=== PATIENT | female | born 1950 | race Caucasian/White ===

== ENCOUNTER → 2017-10-20 16:30 | Outpatient (CLI) | payer MEDICARE, BC, SELFPAY ==
[2017-10-20 16:55] LABS: Basophils % 0.6 % (0.1-2.0); Eosinophils # 0.2 K/mm3 (0.0-0.4); Eosinophils % 3.4 % (0.1-12.0); Hematocrit 41.7 % (37.0-47.0); Hemoglobin 13.2 g/dL (12.2-16.2); Lymphocytes # 1.5 K/mm3 (0.7-4.5); Lymphocytes % 23.2 K/mm3 (10-50); Mean Corpuscular HGB Conc 31.5 g/dL (31.8-35.4); Mean Corpuscular Hemoglobin 30.1 pg (27.0-31.2); Mean Corpuscular Volume 95.5 fl (81-99); Mean Platelet Volume 8.1 fl (7.4-10.4); Monocytes # 0.5 K/mm3 (0.1-1.0); Monocytes % 7.4 % (1.7-9.3); Neutrophils # 4.1 K/mm3 (1.8-7.8); Neutrophils % 65.4 % (37.0-80.0); Platelet Count 202 K/mm3 (142-424); Red Blood Count 4.37 M/mm3 (4.20-5.40); Red Cell Distribution Width 14.2 % (11.5-17.5); White Blood Count 6.3 K/mm3 (4.8-10.8)
[2017-10-20 19:49] LABS: Alanine Aminotransferase 52 U/L (12-78); Albumin Level 3.2 gm/dL (3.4-5.0); Albumin/Globulin Ratio 0.8 (1.1-1.8); Alkaline Phosphatase 82 U/L (46-116); Anion Gap 11.9 mEq/L (5-15); Aspartate Amino Transferase 51 U/L (15-37); Bilirubin,Total 0.3 mg/dL (0.2-1.0); Blood Urea Nitrogen 10 mg/dL (7-18); Calcium 9.2 mg/dL (8.5-10.1); Carbon Dioxide 28 mmol/L (21.0-32.0); Chloride 97 mmol/L (98-107); Chol/HDL Ratio 4.2 (1-3.5); Cholesterol 185 mg/dL (140-200); Creatinine,Serum 0.97 mg/dL (0.55-1.02); Estimated Glomerular Filt Rate 57 ml/min (>60); GFR (African American) 69 ML/MIN (>60); Globulin 3.8 gm/dl (1.3-3.2); Glucose 105 mg/dL (74-106); HDL Cholesterol 44 mg/dL (29-89); LDL Cholesterol 114 mg/dL (0-130); Potassium 3.9 mmoL/L (3.5-5.1); Sodium 133 mmol/L (136-145); Triglycerides 133 mg/dL (30-200); VLDL Cholesterol 27 mg/dL (0-40)
[2017-10-23 06:27] LABS: Vitamin D 25 Hydroxy 39.1 ng/mL (30.0-100.0)
== END ==
PROVIDERS: Visit Provider Nurse Practitioner Family
DX: M86.60 Other chronic osteomyelitis, unspecified site (principal); I10 Essential (primary) hypertension; R60.9 Edema, unspecified; E03.9 Hypothyroidism, unspecified; M85.89 Other specified disorders of bone density and structure, multiple sites; Z68.41 Body mass index [BMI] 40.0-44.9, adult
CPT/HCPCS: 36415; 80053; 80061; 82652; 84443; 85025

== ENCOUNTER → 2017-11-24 15:45 | Outpatient (CLI) | payer MEDICARE, BC, SELFPAY ==
[2017-11-24 17:36] LABS: Anion Gap 12.4 mEq/L (5-15); Blood Urea Nitrogen 14 mg/dL (7-18); Calcium 8.9 mg/dL (8.5-10.1); Carbon Dioxide 28 mmol/L (21.0-32.0); Chloride 91 mmol/L (98-107); Creatinine,Serum 1.14 mg/dL (0.55-1.02); Estimated Glomerular Filt Rate 47 ml/min (>60); GFR (African American) 57 ML/MIN (>60); Glucose 85 mg/dL (74-106); Potassium 4.4 mmoL/L (3.5-5.1); Sodium 127 mmol/L (136-145)
== END ==
PROVIDERS: Visit Provider Nurse Practitioner Family
DX: R60.9 Edema, unspecified (principal)
CPT/HCPCS: 36415; 80048

== ENCOUNTER → 2017-11-27 16:23 | Outpatient (CLI) | payer MEDICARE, BC, SELFPAY ==
--- NOTE | 2017-11-27 16:31 | MM_ITS ---
MM Dig screening mamm BI w/CAD CAD Screening COMPARISON: Digital mammograms with CAD 06/26/2016 and 05/08/2015 INDICATION: There is no personal or family history of breast cancer TECHNIQUE: Standard CC and MLO images were obtained. R2 CAD reviewed. FINDINGS: The patient is very difficult to position with exam performed in wheelchair, patient unable to lead into machine as necessary. The breasts are composed primarily of fat with a few scattered benign-appearing calcifications in each breast. There is a stable benign-appearing nodular density axillary tail right breast likely a low lying node. There is no suspicious lesion and there are no suspicious microcalcifications. IMPRESSION: Fibrofatty parenchyma with no suspicious lesion seen though as mentioned positioning was difficult particularly in regards to the cc views. BI-RADS Category: 2 Benign Finding(s) RECOMMENDED FOLLOW-UP: 1YR - 1 YEAR FOLLOW-UP (A letter has been sent to the patient regarding results of the study.)
== END ==
PROVIDERS: PCP Internal Medicine Adolescent Medicine; Visit Provider Nurse Practitioner Family
DX: Z12.31 Encounter for screening mammogram for malignant neoplasm of breast (principal)
CPT/HCPCS: 77067

== ENCOUNTER → 2018-04-01 15:36 | Outpatient (POV) | payer MEDICARE, BC, SELFPAY ==
[2018-04-01 17:36] LABS: Basophils % 0.5 % (0.1-2.0); Eosinophils # 0.1 K/mm3 (0.0-0.4); Eosinophils % 1.7 % (0.1-12.0); Hematocrit 42.3 % (37.0-47.0); Hemoglobin 13.9 g/dL (12.2-16.2); Lymphocytes # 1.4 K/mm3 (0.7-4.5); Mean Corpuscular HGB Conc 32.8 g/dL (31.8-35.4); Mean Corpuscular Hemoglobin 30.8 pg (27.0-31.2); Mean Corpuscular Volume 94.1 fl (81-99); Mean Platelet Volume 7.7 fl (7.4-10.4); Monocytes # 0.5 K/mm3 (0.1-1.0); Monocytes % 6.7 % (1.7-9.3); Neutrophils # 4.7 K/mm3 (1.8-7.8); Neutrophils % 70.1 % (37.0-80.0); Platelet Count 223 K/mm3 (142-424); Red Blood Count 4.49 M/mm3 (4.20-5.40); Red Cell Distribution Width 13.8 % (11.5-17.5); White Blood Count 6.7 K/mm3 (4.8-10.8)
[2018-04-01 23:51] LABS: Anion Gap 14.5 mEq/L (5-15); Blood Urea Nitrogen 15 mg/dL (7-18); Calcium 9.3 mg/dL (8.5-10.1); Carbon Dioxide 26 mmol/L (21.0-32.0); Chloride 91 mmol/L (98-107); Creatinine,Serum 1.27 mg/dL (0.55-1.02); Estimated Glomerular Filt Rate 42 ml/min (>60); GFR (African American) 50 ML/MIN (>60); Glucose 95 mg/dL (74-106); Potassium 4.5 mmoL/L (3.5-5.1); Sodium 127 mmol/L (136-145); Thyroid Stimulating Hormone 3.87 uIU/ml (0.358-3.740)
== END ==
PROVIDERS: PCP Nurse Practitioner Family
DX: E03.9 Hypothyroidism, unspecified (principal); R60.9 Edema, unspecified; I10 Essential (primary) hypertension
CPT/HCPCS: 36415; 80048; 84443; 85025

== ENCOUNTER → 2018-05-20 14:00 | Outpatient (CLI) | payer MEDICARE, BC, SELFPAY ==
[2018-05-20 20:01] LABS: Albumin Level 3.4 gm/dL (3.4-5.0); Anion Gap 15.8 mEq/L (5-15); Blood Urea Nitrogen 11 mg/dL (7-18); Calcium 9.3 mg/dL (8.5-10.1); Carbon Dioxide 26 mmol/L (21.0-32.0); Chloride 95 mmol/L (98-107); Creatinine,Serum 1.18 mg/dL (0.55-1.02); Estimated Glomerular Filt Rate 45 ml/min (>60); GFR (African American) 55 ML/MIN (>60); Glucose 101 mg/dL (74-106); Phosphorous 3.8 mg/dL (2.4-4.9); Potassium 4.8 mmoL/L (3.5-5.1); Sodium 132 mmol/L (136-145)
[2018-05-23 21:49] LABS: Vitamin D 25 Hydroxy 41.1 ng/mL (30.0-100.0)
[2018-05-25 15:31] LABS: Osteocalcin 7.5 ng/mL (.)
[2018-05-26 13:58] LABS: Tandem-R Ostase 15.3 ug/L (.)
[2018-05-28 11:12] LABS: N-Telopeptide Cross-linked 11.3 nmol BCE/L (6.2-19.0)
== END ==
PROVIDERS: Visit Provider Internal Medicine Nephrology
DX: M81.0 Age-related osteoporosis without current pathological fracture (principal)
CPT/HCPCS: 36415; 80069; 82523; 82652; 83937; 84080

== ENCOUNTER → 2018-05-21 12:43 | Outpatient (CLI) | payer MEDICARE, BC, SELFPAY ==
--- NOTE | 2018-05-21 12:55 | XR_ITS ---
XR DEXA axial skeleton HISTORY: ITS.REASON: OSTEOPAROSIS ORDERING PHYSICIAN: Raul Cosme PATIENT AGE: 68 years COMPARISON: 06/26/2016 FINDINGS: The BMD measured at the Right femoral neck is 0.684 g/cm squared with a T score of -2.5. This is considered Osteoporotic according to the World Health Organization criteria. Fracture risk is High. Treatment is advised. The mean hip density has decreased by 1.2%. IMPRESSION: Osteoporosis with high fracture risk. Treatment is advised. Suggest follow-up exam in one year
[2018-05-21 13:25] LABS: Creatinine,Urine Random 42 mg/dL (20-320)
== END ==
PROVIDERS: PCP Internal Medicine Adolescent Medicine; Visit Provider Internal Medicine Nephrology
DX: M81.0 Age-related osteoporosis without current pathological fracture (principal)
CPT/HCPCS: 77080; 82570

== ENCOUNTER → 2018-05-25 15:15 | Outpatient (POV) | payer MEDICARE, BC, SELFPAY | PROVIDERS: Visit Provider Internal Medicine Nephrology | DX: Z00.00 Encounter for general adult medical examination without abnormal findings (principal) ==

== ENCOUNTER 2018-06-16 13:20 | Outpatient (CLI) | payer MEDICARE, BC, SELFPAY ==
[2018-06-16 13:15] VITALS: BP 148/74; PULSE 68; RESP 20; TEMP 37.1; O2SAT 95
[2018-06-16 13:20] VITALS: BMI 45.1
[2018-06-16 13:35] VITALS: BP 152/74; PULSE 68; RESP 20; TEMP 36.9; O2SAT 95
== END 2018-06-16 13:35 | disposition home or self-care (01) ==
LOC: INF 13:55
PROVIDERS: Visit Provider Internal Medicine Nephrology
DX: M81.0 Age-related osteoporosis without current pathological fracture (principal)
CPT/HCPCS: 96374; J3489

== ENCOUNTER → 2018-07-02 17:06 | Outpatient (CLI) | payer MEDICARE, BC, SELFPAY ==
[2018-07-02 19:14] LABS: Basophils % 0.6 % (0.1-2.0); Eosinophils # 0.2 K/mm3 (0.0-0.4); Eosinophils % 2.7 % (0.1-12.0); Hematocrit 42.5 % (37.0-47.0); Hemoglobin 13.1 g/dL (12.2-16.2); Lymphocytes # 1.9 K/mm3 (0.7-4.5); Lymphocytes % 32.7 % (10-50); Mean Corpuscular HGB Conc 30.8 g/dL (31.8-35.4); Mean Corpuscular Hemoglobin 30.5 pg (27.0-31.2); Mean Corpuscular Volume 99.2 fl (81-99); Mean Platelet Volume 8.6 fl (7.4-10.4); Monocytes # 0.6 K/mm3 (0.1-1.0); Monocytes % 9.3 % (1.7-9.3); Neutrophils # 3.3 K/mm3 (1.8-7.8); Neutrophils % 54.7 % (37.0-80.0); Platelet Count 238 K/mm3 (142-424); Red Blood Count 4.28 M/mm3 (4.20-5.40); Red Cell Distribution Width 13.9 % (11.5-17.5)
[2018-07-02 19:59] LABS: Alanine Aminotransferase 36 U/L (12-78); Albumin Level 3.4 gm/dL (3.4-5.0); Albumin/Globulin Ratio 0.9 (1.1-1.8); Alkaline Phosphatase 105 U/L (46-116); Aspartate Amino Transferase 26 U/L (15-37); Bilirubin,Total 0.3 mg/dL (0.2-1.0); Blood Urea Nitrogen 10 mg/dL (7-18); Calcium 8.9 mg/dL (8.5-10.1); Carbon Dioxide 30 mmol/L (21.0-32.0); Chloride 97 mmol/L (98-107); Creatinine,Serum 0.95 mg/dL (0.55-1.02); Estimated Glomerular Filt Rate 58 ml/min (>60); GFR (African American) 70 ML/MIN (>60); Globulin 3.9 gm/dl (1.3-3.2); Sodium 134 mmol/L (136-145); Total Protein,Serum 7.3 gm/dL (6.4-8.2)
[2018-07-02 20:20] LABS: Glucose 72 mg/dL (74-106)
== END ==
PROVIDERS: Visit Provider Nurse Practitioner Family
DX: M86.60 Other chronic osteomyelitis, unspecified site (principal); E03.9 Hypothyroidism, unspecified; E87.1 Hypo-osmolality and hyponatremia
CPT/HCPCS: 36415; 80053; 84443; 85025

== ENCOUNTER 2018-10-19 21:13 | Observation (INO) | payer MEDICARE, BC, SELFPAY ==
[2018-10-19 21:13] VITALS: BP 138/49; PULSE 94; RESP 15; TEMP 37; O2SAT 98; BMI 40.3
--- NOTE | 2018-10-19 21:37 | CT_ITS ---
CT head/brain wo con HISTORY: Headache, pain, contusion/aspiration following injury ITS.REASON: fall ORDERING PHYSICIAN: Rigoberto Camejo MD PATIENT AGE: 68 years COMPARISON: None TECHNIQUE: Axial images obtained without contrast. Brain and bone windows reviewed. All CT scans at the facility use one or more dose reduction, viz: automated exposure control, ma/kV adjustment per patient size (including targeted exams where dose is matched to indication, i.e. head), or iterative reconstruction technique. FINDINGS: No midline shift, mass effect, intracranial hemorrhage, hydrocephalus, or extra-axial fluid collection is evident. There are involutional changes of age with atrophy and periventricular ischemic gliotic change The calvarium has an unremarkable appearance. No mastoid effusion. No sinus air-fluid levels.. IMPRESSION: No acute intracranial finding
--- NOTE | 2018-10-19 21:37 | XR_ITS ---
XR chest AP HISTORY: Posttraumatic pain ITS.REASON: fall ORDERING PHYSICIAN: Rigoberto Camejo MD PATIENT AGE: 68 years COMPARISON: 07/12/2016 FINDINGS: There is cardiomegaly with prominence of the mediastinum. Lungs are clear. There is no fracture of the left sixth and seventh ribs. No acute bony findings. IMPRESSION: Cardiomegaly. Old left-sided rib fracture. There is mild prominence of the mediastinum which may be related to the AP supine technique. Consider upright PA and lateral chest for further evaluation.
--- NOTE | 2018-10-19 21:37 | HMH.EDFALL ---
ED Disposition Clinical Impression: Weakness, Gait abnormality, Falls frequently Obesity Qualifiers: Obesity type: due to excess calories Obesity classification: adult class 3 (BMI >= 40) Serious obesity comorbidity presence: with serious comorbidity Body mass index: BMI 40.0-44.9 Qualified Code(s): E66.01 - Morbid (severe) obesity due to excess calories; Z68.41 - Body mass index (BMI) 40.0-44.9, adult Disposition: Admitted as Observation Condition on Discharge: Good Referrals: Elodia Quijano APRN [Primary Care Provider] - - Critical Care Critical Care Time: No Attestation: On 10/19/18, the high probability of a clinically significant, sudden or life threatening deterioration of the following system(s) required my full and direct attention, intervention and personal management. The time I documented below is in addition to time spent performing reported procedures but includes the following listed in this critical care notation. Medical Decision Making - Medical Records Medical records reviewed: Yes: I reviewed the patient's medical records. - [place] Inquiry Pt receiving controlled substance: No Vital Signs: 10/19/18 21:13 10/20/18 00:30 Temperature 98.6 F Temperature Source Oral Pulse Rate [Right Brachial] 94 H 84 Respiratory Rate 15 15 Blood Pressure [Right Arm] 138/49 L 132/74 Blood Pressure Mean [Right Arm] 78 93 02 Sat by Pulse Oximetry 98 96 Oxygen Delivery Method Room Air Room Air - Lab Data Lab results reviewed: Yes: I reviewed the patient's lab results. Lab Results 10/19/18 21:26: WBC 5.1, RBC 4.32, Hgb 13.3, Hct 38.8, MCV 89.9, MCH 30.8, MCHC 34.2, RDW 13.3, Plt Count 162, MPV 8.8, Neut % (Auto) 78.4, Lymph % (Auto) 14.1, [place] % (Auto) 6.9, Eos % (Auto) 0.2, Baso % (Auto) 0.4, Neut # (Auto) 4.0, Lymph # (Auto) 0.7, [place] # (Auto) 0.4, Eos # (Auto) 0.0, Baso # (Auto) 0.0 10/19/18 22:40: Sodium 131 L, Potassium 5.0, Chloride 96 L, Carbon Dioxide 24, Anion Gap 16.0 H, BUN 11, Creatinine 1.09 H, Estimated Creat Clear 97, Estimated GFR 50 L, Est GFR ( Amer) 60, Glucose 98, Calcium 8.4 L, Total Bilirubin 0.4, AST 111 H, ALT 73, Alkaline Phosphatase 87, Troponin I 0.04, Total Protein 6.3 L, Albumin 2.7 L, Globulin 3.6 H, Albumin/Globulin Ratio 0.8 L 10/20/18 00:00: Urine Color Yellow, Urine Appearance Clear, Urine pH 6.0, Ur Specific [place] 1.020, Urine Protein Trace, Urine Glucose (UA) Negative, Urine Ketones Negative, Urine Blood 1+, Urine Nitrate Negative, Urine Bilirubin Negative, Urine Urobilinogen 0.2, Ur Leukocyte Esterase Negative, Urine RBC 5-10, Urine WBC 3-5, Urine Bacteria 1+ Result diagrams: 10/19/18 21:26 10/19/18 22:40 Orders (Tests/Meds): ORDERS Category Date Time Status CT cervical spine wo con Stat Cat Scan 10/19/18 21:[address] head/brain wo con Stat Cat Scan 10/19/18 21:37 Taken Lumbar spine minimum 4 views [XR lumbar spine min 4V] Exams 10/19/18 22:10 Taken Stat XR chest AP Stat Exams 10/19/18 21:37 Taken XR pelvis 1-2V Stat Exams 10/19/18 21:37 Taken CPK [Creatine Kinase] Stat Lab 10/20/18 01:00 Ordered ECG Request by /Mynor Stat Y 10/19/18 21:37 Ordered - Radiology Data #1 Image(s): Chest, L-Spine, Pelvis Image Reviewed: Yes I reviewed the patient's radiology image Preliminary Findings: No Fracture Seen - CT Data CT Scan: Head, C-Spine Time Received: 01:[address] Reviewed: Yes: I have viewed the radiologist's interpretation Preliminary Findings: No Fracture Seen - ECG Data Tracing #1 Arrhythmias present: wandering atrial pacemaker Ischemic changes: non-specific ST-T wave changes ECG compared to prior tracings: there are no significant changes - Physician Consults Physician Consulted: vannessa Reason -: Admission Fall HPI - General Chief Complaint: Fall Stated Complaint: FALL Time Seen by Provider: 10/19/18 21:20 Mode of Arrival: EMS Source of Information: Patient, EMS, Medical Record Limitations: Physical Limi
--- NOTE | 2018-10-19 21:37 | CT_ITS ---
CT CERVICAL SPINE WITHOUT CONTRAST CT RECONSTRUCTIONS HISTORY:Neck pain following injury, fall with injury and pain ORDERING PHYSICIAN: Rigoberto Camejo MD PATIENT AGE: 68 years COMPARISON: 02/05/2013 Technique: All CT scans at the facility use one or more dose reduction, viz: automated exposure control, ma/kV adjustment per patient size (including targeted exams where dose is matched to indication, i.e. head), or iterative reconstruction technique PROCEDURE: Axial spiral CT scanning performed of the cervical spine beginning at the base of the skull and continuing to the upper T-spine. 3-D multiplanar reconstruction with 3-D manipulation of volumetric data set in image rendering was completed by the radiologist and/or technologist with the supervision of the radiologist on independent workstation. FINDINGS: There is normal alignment. These osteopenia. There is mild compression deformity involving the superior endplate of C7 and sclerosis of the right aspect of the C7 vertebral body not readily apparent on the previous exam. Degenerative disc disease is present at C5-C6 and C6-C7. No acute finding in the upper chest. No prevertebral soft swelling. IMPRESSION: 1. No acute fracture. 2. Small compression deformity of superior endplate of C7 with sclerosis and right aspect of C7 vertebral body which has developed since the previous exam and could be related to underlying neoplastic process. Bone scan may be of further value. 3. Cervical spondylosis
--- NOTE | 2018-10-19 21:37 | XR_ITS ---
XR pelvis 1-2V HISTORY: Fall with injury and pain ITS.REASON: fall ORDERING PHYSICIAN: Rigoberto Camejo MD PATIENT AGE: 68 years FINDINGS: No fracture or dislocation is evident. No significant degenerative change. No lytic or blastic change. Postsurgical changes lower lumbar spine and lumbosacral junction from prior fusion. Calcification is noted in the left pelvic region and may be due to fibroid calcification. IMPRESSION: No acute finding with no change from 01/05/2015
[2018-10-19 22:05] LABS: Basophils % 0.4 % (0.1-2.0); Eosinophils % 0.2 % (0.1-12.0); Hematocrit 38.8 % (37.0-47.0); Hemoglobin 13.3 g/dL (12.2-16.2); Lymphocytes # 0.7 K/mm3 (0.7-4.5); Lymphocytes % 14.1 % (10-50); Mean Corpuscular HGB Conc 34.2 g/dL (31.8-35.4); Mean Corpuscular Hemoglobin 30.8 pg (27.0-31.2); Mean Corpuscular Volume 89.9 fl (81-99); Mean Platelet Volume 8.8 fl (7.4-10.4); Monocytes # 0.4 K/mm3 (0.1-1.0); Monocytes % 6.9 % (1.7-9.3); Neutrophils % 78.4 % (37.0-80.0); Platelet Count 162 K/mm3 (142-424); Red Blood Count 4.32 M/mm3 (4.20-5.40); Red Cell Distribution Width 13.3 % (11.5-17.5); White Blood Count 5.1 K/mm3 (4.8-10.8)
--- NOTE | 2018-10-19 22:05 | PC.NURSE ---
PT IS IN CT AT THIS TIME
--- NOTE | 2018-10-19 22:10 | XR_ITS ---
EXAM: XR lumbar spine min 4V HISTORY: Pain following injury ITS.REASON: BACK PAIN ORDERING PHYSICIAN: Rigoberto Camejo MD PATIENT AGE: 68 years COMPARISON: 10/24/2015 FINDINGS: There are extensive postsurgical changes with interpedicular screws and connecting rods from L2 to S1 with normal alignment. There is been prior vertebral plasty at T12, L1, L2, and L4. Mild chronic wedging is present at T12, L1, L2, and L4. No acute fracture or dislocation is evident. IMPRESSION: Postsurgical changes and chronic changes, no acute finding
[2018-10-19 23:21] LABS: Alanine Aminotransferase 73 U/L (12-78); Albumin Level 2.7 gm/dL (3.4-5.0); Albumin/Globulin Ratio 0.8 (1.1-1.8); Alkaline Phosphatase 87 U/L (46-116); Aspartate Amino Transferase 111 U/L (15-37); Bilirubin,Total 0.4 mg/dL (0.2-1.0); Blood Urea Nitrogen 11 mg/dL (7-18); Calcium 8.4 mg/dL (8.5-10.1); Carbon Dioxide 24 mmol/L (21.0-32.0); Chloride 96 mmol/L (98-107); Creatinine Clearance Estimated 97 mL/min (50-200); Creatinine,Serum 1.09 mg/dL (0.55-1.02); Estimated Glomerular Filt Rate 50 ml/min (>60); GFR (African American) 60 ML/MIN (>60); Globulin 3.6 gm/dl (1.3-3.2); Glucose 98 mg/dL (74-106); Sodium 131 mmol/L (136-145); Total Protein,Serum 6.3 gm/dL (6.4-8.2); Troponin I 0.04 ng/ml (0.00-0.06)
[2018-10-20] VITALS (11 sets, daily range): BP systolic 111–153; BP diastolic 56–79; PULSE 69–90; RESP 15–20; TEMP 36.7–37.4; O2SAT 95–99; BMI 44.1
[2018-10-20 00:10] LABS: Microscopic, Urine URINE MICROSCOPIC (MICROSCOPIC)
[2018-10-20 00:14] LABS: Appearance,Urine CLEAR (Clear); Bilirubin,Urine Negative (Negative); Blood, Urine 1+ (Negative); Color,Urine YELLOW (Yellow); Glucose,Urine (UA) Negative (Negative); Ketones,Urine Negative (Negative); Leukocyte Esterase,Urine Negative (Negative); Nitrate,Urine Negative (Negative); Protein,Urine TRACE (Negative); Urobilinogen,Urine 0.2 EU/dl (0.2)
--- NOTE | 2018-10-20 00:30 | PC.NURSE ---
pt assisted up to a wheelchair at this time, required 1x assist. pt tolerated well, reports she will need her walker if she is going to ambulate. notified
[2018-10-20 00:33] LABS: Bacteria,Urine 1+ /lpf
--- NOTE | 2018-10-20 01:10 | PC.NURSE ---
Dr Gomes paged again
[2018-10-20 02:03] LABS: Creatine Kinase 922 U/L (26-192)
--- NOTE | 2018-10-20 02:05 | PC.NURSE ---
ARRIVED TO FLOOR, PER W/C, FROM ED
[2018-10-20 05:13] LABS: Basophils % 0.4 % (0.1-2.0); Eosinophils % 0.6 % (0.1-12.0); Hematocrit 39.9 % (37.0-47.0); Hemoglobin 13.7 g/dL (12.2-16.2); Lymphocytes # 0.8 K/mm3 (0.7-4.5); Lymphocytes % 15.4 % (10-50); Mean Corpuscular HGB Conc 34.2 g/dL (31.8-35.4); Mean Corpuscular Hemoglobin 30.8 pg (27.0-31.2); Mean Platelet Volume 7.8 fl (7.4-10.4); Monocytes # 0.3 K/mm3 (0.1-1.0); Neutrophils # 3.9 K/mm3 (1.8-7.8); Neutrophils % 77.7 % (37.0-80.0); Platelet Count 128 K/mm3 (142-424); Red Blood Count 4.44 M/mm3 (4.20-5.40); Red Cell Distribution Width 13.4 % (11.5-17.5); White Blood Count 5.1 K/mm3 (4.8-10.8)
[2018-10-20 05:27] LABS: Anion Gap 11.5 mEq/L (5-15); Blood Urea Nitrogen 12 mg/dL (7-18); Calcium 8.5 mg/dL (8.5-10.1); Carbon Dioxide 29 mmol/L (21.0-32.0); Chloride 94 mmol/L (98-107); Creatinine Clearance Estimated 48 mL/min (50-200); Creatinine,Serum 1.09 mg/dL (0.55-1.02); Estimated Glomerular Filt Rate 50 ml/min (>60); GFR (African American) 60 ML/MIN (>60); Glucose 84 mg/dL (74-106); Potassium 4.5 mmoL/L (3.5-5.1); Sodium 130 mmol/L (136-145); Troponin I 0.02 ng/ml (0.00-0.06)
--- NOTE | 2018-10-20 06:56 | PC.NURSE ---
PT NEW ADMIT AROUND 0200. DX WEAKNESS AND FALLS. PT REQUIRES 2-3 ASSIST WHEN GETTING UP. PT HAS PT/OT CONSULT ORDERED. IV SECURE AND PATENT, INFUSING NS@100/HR. RESPIRATIONS EVEN AND UNLABORED ON ROOM AIR. BREATH SOUNDS CLEAR. PT C/O PEDERSEN, TYLENOL GIVEN. PT SLEPT INTERVALS. A.M. LABS DRAWN. PT STABLE. WILL CONTINUE TO MONITOR. REPORT TO BE GIVEN TO ONCOMING NURSE.
--- NOTE | 2018-10-20 07:30 | PC.NURSE ---
REPORT GIVEN TO Thom SCHULTZ
--- NOTE | 2018-10-20 07:57 | HMH.HP ---
*Admission Date: 10/20/18 *Chief complaint: falls, weakness *History of present illness: Ms. Larios is a 68-year-old female well-known to our clinic who has a history of chronic back problems, multiple spinal surgeries. She presented overnight to the ER after falling at home and being unable to get up. She reports she fell at home and was on the floor throughout most of the day, called EMS to assist her. The first time they showed up she refused going to the hospital however the second time she needed them she finally agreed. She states her legs will just give out . Denies loss of consciousness, head trauma, chest pain, shortness of breath. Of note patient is morbidly obese on initial assessment. Has difficulty standing on her own. Is in bed and appears disheveled. States her just cannot take care of her as he has many of his own medical conditions per her report. Does complain of an additional rash on her right upper leg that hurts. Otherwise tolerated breakfast this morning. On room air [facility] History I have reviewed the patient's past medical history: Yes Medical History: Reports:: Congestive Heart Failure, Hypertension Denies:: Cancer, Diabetes Mellitus Type 1, Diabetes Mellitus Type 2, MRSA *Have you ever received a pneumonia vaccine?: Yes *Have you received a flu vaccine this season?: Yes Other Medical History: Reports: Arthritis, Liver DiseaseComment Only: Sinus Problems (SEASONAL ALLERGIES) Other Surgeries: Yes: Cholecystectomy, Colonoscopy, EGD, Other (BREAST BIOPSIES) - *Social History Educational Level: Attended College Smoking Status: Never smoker Alcohol Intake: never *Occupational Status:: disabled Housing: house *Travel in the last 8 weeks: None - Psychiatric History Expresses thoughts of harming self/others: None Suicide Plan Description: No Plan Family Hx:: Unable to obtain Review of Systems - Review of Systems Review of systems:: pertinent systems reviewed and negative unless documented below - *Neurologic Reports abnormal walking, Reports weakness, Denies confusion, Denies localized weakness, Denies seizure-like activity Meds Home Medications Medication Instructions Recorded Confirmed Type Amitriptyline HCl [Elavil 25mg 25 mg PO HS 10/19/18 10/20/18 History tablet] Bisoprolol Fumarate [Bisoprolol 10 mg PO DAILY 10/19/18 10/20/18 History 10mg Tablet] Calcium Carb, Citrate/Vit D3 1 each PO DAILY 10/19/18 10/20/18 History [Calcium + D3 ER Tablet] Cholecalciferol (Vitamin D3) 1,000 unit PO DAILY 10/19/18 10/20/18 History [Vitamin D3 1,000 Unit Cap] Escitalopram Oxalate 10 mg PO DAILY 10/19/18 10/20/18 History Fexofenadine/Pseudoephedrine 1 tab PO DAILY 10/19/18 10/20/18 History [Joyce-D 24 Hour Tablet] Furosemide [Lasix 20mg tab] 20 mg PO DAILY 10/19/18 10/20/18 History Levocetirizine Dihydrochloride 5 mg PO HS 10/19/18 10/20/18 History [Allergy Relief] Multivit-Min/Iron/Folic/Lutein 1 each PO DAILY 10/19/18 10/20/18 History [Centrum Silver Women Tablet] Raphine-3S/Dha/Epa/Fish Oil [Fish 1 each PO DAILY 10/19/18 10/20/18 History Oil 1,000 mg Softgel] Potassium 99 mg PO DAILY 10/19/18 10/20/18 History Pregabalin [Lyrica 150mg Cap] 150 mg PO BID 10/19/18 10/20/18 History Spironolactone 50 mg PO BID 10/19/18 10/20/18 History Sulfamethoxazole/Trimethoprim 1 tab PO BID 10/19/18 10/20/18 History [Sulfamethoxazole-Tmp Ds Tablet] Trazodone HCl 150 mg PO HS 10/19/18 10/20/18 History Ursodiol 1,000 mg PO BID 10/19/18 10/20/18 History azaTHIOprine [azaTHIOprine 50mg 50 mg PO DAILY 10/19/18 10/20/18 History Tablet] predniSONE [Deltasone 1mg tablet] 4 mg PO DAILY 10/19/18 10/20/18 History Hydrocodone/Acetaminophen 1 each PO QIDP PRN 10/20/18 10/20/18 History [Hydrocodon-Acetaminophn 10-325] Levothyroxine Sodium 112 mcg PO DAILY 10/20/18 10/20/18 History [Levothyroxine 112mcg (0.112mg) Tab] Omeprazole 20 mg PO DAILY 10/20/18 10/20/18 History Al
--- NOTE | 2018-10-20 08:27 | HMH.PHAINT ---
HOME MEDICATION RECONCILIATION COMPLETED USING PT MEDICATION BOTTLES FROM PHARMACY AND MEDICATION LIST FROM DR WELSH'S OFFICE.
--- NOTE | 2018-10-20 08:36 | HMH.PHAVTE ---
[facility] Pharmacy VTE Monitoring - Patient Demographics Admission date: 10/19/18 Report Date: 10/20/18 Time: 08:36 Allergies/Adverse Reactions: Patient Allergies erythromycin base [ERYTHROMYCIN BASE] Allergy (Unknown, Verified 10/20/18 08:20) Unknown allergy reaction nitrofurantoin [From MACROBID] Allergy (Unknown, Verified 10/20/18 08:20) Unknown allergy reaction gluten [From GLUTEN (FOOD/DRUG)] Adverse Reaction (Severe, Verified 06/16/18 13:53) DIARRHEA Height: 1.73 m Weight: 131.74 kg Patient Problems: Current Active Problems (Updated 10/20/18 @ 07:58 by Mohamud Medeiros MD) Weakness (Acute) Gait abnormality (Acute) Falls frequently (Acute) Obesity (Acute) Rhabdomyolysis (Acute) - VTE Risk Labs: VTE Related Lab Results Hgb 13.7 g/dL (12.2-16.2) 10/20/18 05:00 Hct 39.9 % (37.0-47.0) 10/20/18 05:00 Plt Count 128 K/mm3 (142-424) L 10/20/18 05:00 BUN 12 mg/dL (7-18) 10/20/18 05:00 Creatinine 1.09 mg/dL (0.55-1.02) H 10/20/18 05:00 Estimated Creat Clear 48 mL/min (50-200) 10/20/18 05:00 Was VTE Risk Assessment Performed: Yes VTE Risk Level: Low Risk - Prophylaxis VTE Prophylaxis Ordered?: Yes Types of VTE Prophylaxis: TEDS Knee High Location of Applied Device: Bilateral Lower Extremeties - VTE Diagnosis Confirmed Treatment or plan recommended: Continue Current Treatment
[2018-10-20 08:55] LABS: Troponin I < 0.02 ng/ml (0.00-0.06)
--- NOTE | 2018-10-20 10:27 | HMH.OTEV ---
OT Inpatient Evaluation Rehab OT IP Evaluation Start: 10/20/18 01:42 Freq: ONCE Status: Complete Protocol: Document 10/20/18 09:40 TFRY (Rec: 10/20/18 09:47 TFRY [id number]) Rehab OT IP Assessment Subjective History This is a 68 year old female admitted to the hospital after falling at home multiple times. Patient reports living at home with her . Patient reports that she walks with a walker at home and lives in a two story home and has to do steps. Objective Upper Extremity Gross ROM WFL Bed Mobility bed mobility - supine/sit Assist Level Maximum x 1 (75% assist) Transfer Training Sit/Stand/Pivot Transfer Assist Level Moderate x 2 (50% assist) Chair Transfer Ability Minimal x 2 (25% assist) Chair Transfer Technique Stand Step Pivot Feeding Ability Independent Lower Body Dressing Ability Unable/Dependant Performing Toilet Hygiene Ability Maximum Assistance Overall Commode/Toilet Transfer Ability Assistance x2 Commode/Toilet Transfer Technique Stand Step Pivot decrease in endurance No Rehab OT IP prob,goals,plan Problems Date of Evaluation: 10/20/18 OT IP Problems Bed Mobility,Transfers,Self care,Safety Rehab Potential Rehab Potential Fair Equipment Needs Assistive Devices Rolling / Wheeled Walker Plan OT intervention Plan Bed Mobility,Transfers,Self care,Safety OT Plan Frequency Daily Duration Goals Met Discharge Goals Bed Mobility Ability Assistance x1 Sit to Stand Chair Transfer Ability Contact Guard/Hand Hold Chair Transfer Technique Sit to/from Ambulatory Chair Transfer Assistive Devices Rolling Walker Lower Body Dressing Ability Assistance X1 Upper Body Dressing Ability Standby Assistance Bathing Ability Assistance x1 Performing Toilet Hygiene Ability Standby Assistance Overall Commode/Toilet Transfer Ability Standby Assistance Commode/Toilet Transfer Technique Stand Step Pivot Oral Care Ability Independent Discharge Plan OT Discharge Plan Recommend further therapy on discharge if returns home or prison placement for continued therapy for safety to increase independence Eval Complexity Eval Charge Codes 18251 - Low Complexity G Codes G -code Required
--- NOTE | 2018-10-20 10:47 | HMH.PTEV ---
Physical Therapy Evaluation Rehab PT IP Evaluation Start: 10/20/18 01:42 Freq: ONCE Status: Active Protocol: Document 10/20/18 10:42 [email or web address] (Rec: 10/20/18 10:47 [email or web address] [id number]) Subjective/History History History This is the initial IP PT evaluation for Brianda Larios. Pt is a 68 y/o female admitted to [facility] s/p fall at home, and severe weakness. Subjective Subjective Pt reports she fell at home 2x . Pt reports first time her legs just gave out EMS came and placed pt in bed. Pt hen attempted to get OOB and slid to floor. Again EMS was called and pt was brought to [facility]. Pt and spouse report they live in split level home w/ 4 stairs to enter and 7 stairs up and down. Pt uses walker at home but was I w/ ADL's and self care at home. Rehab PT IP Eval Objective Appearance Patient Behavior Appropriate,Cooperative, Fearful Patient Orientation Person,Place,Time Difficulty following instructions none Speech Pattern Clear Ambulation Patient Able to Ambulate Yes Ambulation Observation IP General Gait Pattern Observation Wide Based Gait,Shuffling Step Ambulation Distance (feet) 2 Ambulation Assistive Device Rolling Walker Balance Ability to Arise Able, uses arms to help Sitting Balance Steady, safe Standing Balance Unsteady Dynamic Sitting Balance Ability Fair Dynamic Standing Balance Ability Poor Transfers Bed Transfer Ability Contact Guard/Hand Hold Chair Transfer Ability Contact Guard/Hand Hold Sit to Stand Bed Transfer Ability Contact Guard/Hand Hold Sit to Stand Chair Transfer Ability Contact Guard/Hand Hold ROM All Extremities PT ROM Status WFL MMT All Extremities PT MMT WFL Rehab PT IP prob,goals,plan Problems Date of Evaluation: 10/20/18 PT IP Problems Bed Mobility,Transfers,Gait, Self care,Safety Rehab Potential Rehab Potential Poor Equipment Needs Assistive Devices Rolling / Wheeled Walker Plan PT Intervention Plan Bed Mobility,Transfers,Gait, Self care,Therapeutic Exercise PT Plan Frequency BID Duration LOS Di
[2018-10-20 11:12] LABS: Creatine Kinase 823 U/L (26-192)
--- NOTE | 2018-10-20 17:00 | SW/DCPLANNER ---
WENT BACK TO SEE PATIENT ABOUT HER DISCHARGE PLAN AFTER THERAPY DID NOT FEEL PATIENT WAS SAFE ENOUGH TO RETURN HOME AT THIS TIME...PATIENT STATED SHE IS AT HOME WITH HER BUT HE HAS HEALTH ISSUES ALSO.. I TOLD HER WE HAVE 3 FACILITIES HERE IN [place] THAT OFFER SKILLED CARE AND SHE COULD GO THERE BUT SHE COULD NOT USE HER MEDICARE A BECAUSE SHE WAS JUST IN AN OBSERVATION STATUS... PATIENT DID NOT SEEM TO UNDERSTAND, I ASKED HER IF SHE WOULD LIKE FOR ME TO CALL AND GET SOME PRIVATE PAY RATES FOR HER AND I DID [facility] IS $175 FOR PRIVATE AND $170 FOR SEMIPRIVATE, [facility] IS $175 AND [facility] FROM [facility] CAME AND SPOKE WITH HER BUT DOESN'T HAVE ANYTHING TO OFFER HER AT THIS TIME.. I EXPLAINED TO HER SHE MAY BE READY IN THE NEXT DAY OR SO AND SHE ACKNOWLEDGED WHAT I WAS TELLING HER...
--- NOTE | 2018-10-20 18:10 | PC.NURSE ---
PATIENT AOX4, LUNGS CLEAR, PULSES EQUAL, DISK RECOATER EQUAL, RN IN ROOM WITH DR. ESPINOSA THIS AM, RN REPORTED RASH ON PATIENT'S BACK THAT WENT DOWN INTO INNER THIGH. MD AND RN ASSESED RASH THAT APPEARED TO BE SCABED. MD STATED IT IS SHINGLES. MD EDUCATED PATIENT ABOUT SHINGLES AND TREATMENT, PATIENT VERBALIZED AN UNDERSTANDING. RN ASSISTED PATIENT FROM CHAIR TO BED, NOTICED NEW SPOTS BLISTERED. RN PHONED MD'S OFFICE SPOKE TO LAURA, NO PHONE CALL BACK, RN PHONED BACK, WAS TOLD NOTHING WAS GOING TO BE CHANGED. RN THEN VERBALLY SPOKE WITH DR. RON MD ORDERED ACYCLOVIR 800MG 5X A DAY PO. PATIENT WAS MOVED FROM 210 TO 211 FOR ISOLATION PURPOSES. PATIENT AMBULATED WITH 2X ASSISTANCE, UNSTEADY. RN EDUCATED PATIENT ABOUT CALLING FOR HELP, NOT TO GET UP WITHOUT SOMEONE IN ROOM. PATIENT VERBALIZED AN UNDERSTANDING. NO NEW CONCERNS OR NEEDS
[2018-10-20 23:56] LABS: Adenovirus F 40/41, stool Not Detected (NotDetected); Astrovirus Not Detected (NotDetected); Campylobacter Not Detected (NotDetected); Clostridium Difficile A/B, PCR Not Detected (NotDetected); Cryptosporidium Not Detected (NotDetected); Cyclospora Cayetanesis Not Detected (NotDetected); Entamoeba histolytica Not Detected (NotDetected); Enteroaggregative E coli Not Detected (NotDetected); Enteropathogenic E coli Not Detected (NotDetected); Enterotoxigenic E coli Not Detected (NotDetected); Giardia lamblia Not Detected (NotDetected); Norovirus Not Detected (NotDetected); Plesimonas Shigalloides, PCR Not Detected (NotDetected); Rotavirus A Not Detected (NotDetected); Salmonella, PCR Not Detected (NotDetected); Sapovirus Not Detected (NotDetected); Shiga-like toxin E coli Not Detected (NotDetected); Shigella Enterovasive E coli Not Detected (NotDetected); Vibrio Cholerae Not Detected (NotDetected); Vibrio, PCR Not Detected (NotDetected); Yersinia Entercolitica, PCR Not Detected (NotDetected)
[2018-10-21 04:00] VITALS: BP 145/62; PULSE 64; RESP 19; TEMP 36.7; O2SAT 95
--- NOTE | 2018-10-21 04:11 | PC.NURSE ---
Slept at intervals. Pt continues in airborne/contact precautions for shingles virus. Remained on room air w/ no s/s of resp distress. Requires assistance x2 when transferring to BSC d/t pt's weakness. Has periods of stress incontinence w/ both bowel and bladder. Refuses TEDS. #20 (L) hand w/ NS @ 100 mls/hr. VSS. Will continue to monitor.
[2018-10-21 05:16] VITALS: BMI 44.1
[2018-10-21 07:07] LABS: Basophils % 0.4 % (0.1-2.0); Eosinophils % 0.3 % (0.1-12.0); Hematocrit 41.1 % (37.0-47.0); Hemoglobin 13.5 g/dL (12.2-16.2); Lymphocytes # 0.8 K/mm3 (0.7-4.5); Lymphocytes % 18.1 % (10-50); Mean Corpuscular HGB Conc 32.8 g/dL (31.8-35.4); Mean Corpuscular Hemoglobin 30.9 pg (27.0-31.2); Mean Corpuscular Volume 94.2 fl (81-99); Mean Platelet Volume 9.2 fl (7.4-10.4); Monocytes # 0.4 K/mm3 (0.1-1.0); Monocytes % 7.5 % (1.7-9.3); Neutrophils # 3.4 K/mm3 (1.8-7.8); Neutrophils % 73.7 % (37.0-80.0); Platelet Count 127 K/mm3 (142-424); Red Blood Count 4.36 M/mm3 (4.20-5.40); White Blood Count 4.7 K/mm3 (4.8-10.8)
--- NOTE | 2018-10-21 07:14 | PC.NURSE ---
REPORT GIVEN TO Mati SAUNDERS
[2018-10-21 08:00] VITALS: BP 161/62; PULSE 65; RESP 22; TEMP 37.1; O2SAT 94
[2018-10-21 08:29] LABS: Alanine Aminotransferase 112 U/L (12-78); Albumin Level 2.6 gm/dL (3.4-5.0); Albumin/Globulin Ratio 0.8 (1.1-1.8); Alkaline Phosphatase 75 U/L (46-116); Anion Gap 15.2 mEq/L (5-15); Aspartate Amino Transferase 169 U/L (15-37); Bilirubin,Total 0.6 mg/dL (0.2-1.0); Blood Urea Nitrogen 8 mg/dL (7-18); Calcium 7.7 mg/dL (8.5-10.1); Carbon Dioxide 25 mmol/L (21.0-32.0); Chloride 95 mmol/L (98-107); Creatine Kinase 415 U/L (26-192); Creatinine Clearance Estimated 53 mL/min (50-200); Creatinine,Serum 0.79 mg/dL (0.55-1.02); Estimated Glomerular Filt Rate 72 ml/min (>60); GFR (African American) 87 ML/MIN (>60); Globulin 3.4 gm/dl (1.3-3.2); Glucose 79 mg/dL (74-106); Magnesium 1.6 mg/dL (1.4-2.2); Potassium 4.2 mmoL/L (3.5-5.1); Sodium 131 mmol/L (136-145)
--- NOTE | 2018-10-21 08:49 | HMH.DCSUM ---
General - General Admission date:: 10/20/18 Discharge date: 10/21/18 HPI HPI: Ms. Larios is a 68-year-old female well-known to our clinic who has a history of chronic back problems, multiple spinal surgeries. She presented overnight to the ER after falling at home and being unable to get up. She reports she fell at home and was on the floor throughout most of the day, called EMS to assist her. The first time they showed up she refused going to the hospital however the second time she needed them she finally agreed. She states her legs will just give out . Denies loss of consciousness, head trauma, chest pain, shortness of breath. Of note patient is morbidly obese on initial assessment. Has difficulty standing on her own. Is in bed and appears disheveled. States her just cannot take care of her as he has many of his own medical conditions per her report. Does complain of an additional rash on her right upper leg that hurts. Otherwise tolerated breakfast this morning. On room air Hospital Course Hospital Course: Patient was admitted, placed on IV fluids and physical therapy evaluated her. She was found to have rhabdomyolysis and hyponatremia. Unfortunately, even though she clearly deserved admission to an inpatient hospital with IV fluids, she did not meet Medicare criteria based on their bureaucratic regulations which in this case had very poor clinical correlation. Otherwise patient did well with fluids, patient went through physical therapy/Occupational Therapy and then failed evaluation and PIP physical therapy recommended several days of longterm care. Patient had a difficult time deciding about rehabilitation given the cost of this given that Medicare failed to cover this medically necessary service. Patient did decide to go to [facility]. Bed will be arranged at that point. Patient will need to have physical therapy/Occupational Therapy, push p.o. fluids. She will need to have BMP and CBC levels on Friday, October 23, as well as a CPK total level. She will also need urinalysis on Friday. Objective Vital signs: Temp Pulse Resp BP Pulse Ox 98.1 F 64 19 145/62 H 95 10/21/18 04:00 10/21/18 04:00 10/21/18 04:00 10/21/18 04:00 10/21/18 04:00 Narrative: Constitutional mild distress, morbidly obese - *Routine HEENT Exam Head: Present: normocephalic Eye: Present: EOMI, PERRL ENT: Present: mucous membranes moist - *Routine Neck Exam Present: supple. Absent: lymphadenopathy - *Routine Respiratory Exam Present: CTA bilaterally. Absent: wheezes - *Routine Cardiovascular Exam Present: RRR, murmur - *Routine Abdominal Exam Present: soft, normoactive bowel sounds. Absent: tenderness - *Routine Extremities Exam Absent: cyanosis, clubbing, edema Comments: Scabbed rash that begins on right lumbar region and follows dermatomal path to medial thigh wrapping around the right leg/inguinal region, consistent with scabies no weeping or bleeding, no vesicles present - *Routine Skin Exam Present: warm, rash (See extremity exam) - *Routine Neurological Exam Present: alert, oriented X3 Results Labs on day of discharge: Labs from last 24 hours 10/21/18 10/21/18 10/20/18 06:15 06:15 22:50 WBC 4.7 L RBC 4.36 Hgb 13.5 Hct 41.1 MCV 94.2 MCH 30.9 MCHC 32.8 RDW 14.0 Plt Count 127 L MPV 9.2 Neut % (Auto) 73.7 Lymph % (Auto) 18.1 Pierce % (Auto) 7.5 Eos % (Auto) 0.3 Baso % (Auto) 0.4 Neut # (Auto) 3.4 Lymph # (Auto) 0.8 Pierce # (Auto) 0.4 Eos # (Auto) 0.0 Baso # (Auto) 0.0 Sodium 131 L Potassium 4.2 Chloride 95 L Carbon Dioxide 25 Anion Gap 15.2 H BUN 8 D Creatinine 0.79 D Estimated Creat Clear 53 Estimated GFR 72 Est GFR ( Amer) 87 D Glucose 79 Calcium 7.7 L Magnesium 1.6 Total Bilirubin 0.6 AST 169 H D ALT 112 H D
--- NOTE | 2018-10-21 08:54 | P.DS_ITS ---
General - General Admission date:: 10/20/18 Discharge date: 10/21/18 HPI HPI: Ms. Larios is a 68-year-old female well-known to our clinic who has a history of chronic back problems, multiple spinal surgeries. She presented overnight to the ER after falling at home and being unable to get up. She reports she fell at home and was on the floor throughout most of the day, called EMS to assist her. The first time they showed up she refused going to the hospital however the second time she needed them she finally agreed. She states her legs will just give out . Denies loss of consciousness, head trauma, chest pain, shortness of breath. Of note patient is morbidly obese on initial assessment. Has difficulty standing on her own. Is in bed and appears disheveled. States her just cannot take care of her as he has many of his own medical conditions per her report. Does complain of an additional rash on her right upper leg that hurts. Otherwise tolerated breakfast this morning. On room air Hospital Course Hospital Course: Patient was admitted, placed on IV fluids and physical therapy evaluated her. She was found to have rhabdomyolysis and hyponatremia. Unfortunately, even though she clearly deserved admission to an inpatient hospital with IV fluids, she did not meet Medicare criteria based on their bureaucratic regulations which in this case had very poor clinical correlation. Otherwise patient did well with fluids, patient went through physical therapy/Occupational Therapy and then failed evaluation and PIP physical therapy recommended several days of jail care. Patient had a difficult time deciding about rehabilitation given the cost of this given that Medicare failed to cover this medically necessary service. Patient did decide to go to [facility]. Bed will be arranged at that point. Patient will need to have physical therapy/Occupational Therapy, push p.o. fluids. She will need to have BMP and CBC levels on Friday, October 23, as well as a CPK total level. She will also need urinalysis on Friday. Objective Vital signs: Temp Pulse Resp BP Pulse Ox 98.1 F 64 19 145/62 H 95 10/21/18 04:00 10/21/18 04:00 10/21/18 04:00 10/21/18 04:00 10/21/18 04:00 Narrative: Constitutional mild distress, morbidly obese - *Routine HEENT Exam Head: Present: normocephalic Eye: Present: EOMI, PERRL ENT: Present: mucous membranes moist - *Routine Neck Exam Present: supple. Absent: lymphadenopathy - *Routine Respiratory Exam Present: CTA bilaterally. Absent: wheezes - *Routine Cardiovascular Exam Present: RRR, murmur - *Routine Abdominal Exam Present: soft, normoactive bowel sounds. Absent: tenderness - *Routine Extremities Exam Absent: cyanosis, clubbing, edema Comments: Scabbed rash that begins on right lumbar region and follows dermatomal path to medial thigh wrapping around the right leg/inguinal region, consistent with scabies no weeping or bleeding, no vesicles present - *Routine Skin Exam Present: warm, rash (See extremity exam) - *Routine Neurological Exam Present: alert, oriented X3 Results Labs on day of discharge: Labs from last 24 hours 10/21/18 10/21/18 10/20/18 06:15 06:15 22:50 WBC 4.7 L RBC 4.36 Hgb 13.5 Hct 41.1 MCV 94.2 MCH 30.9
--- NOTE | 2018-10-21 10:24 | PC.NURSE ---
Notified by PETTY Short Rn in care management that patient could come out of isolation per Dr Gomes
--- NOTE | 2018-10-21 14:44 | PC.NURSE ---
Patient has tolerated well this shift, assist x 1 to bedside commode. Report called to Marline at [facility]. Packet with prescription was sent with EMS to facility. IV removed prior to discharge, catheter intact, tolerated well. Patient and spouse verbalized understand of education provided by JON Combs. Transported by EMS.
== END 2018-10-21 14:15 ==
LOC: ER 21:23 → 2ND 10-20 01:24
PROVIDERS: Internal Medicine Adolescent Medicine; Admitting Provider Internal Medicine Adolescent Medicine; Emergency Provider Emergency Medicine; PCP Nurse Practitioner Family; Visit Provider Internal Medicine Adolescent Medicine
DX: M62.82 Rhabdomyolysis (principal); R26.9 Unspecified abnormalities of gait and mobility; B02.9 Zoster without complications; E66.01 Morbid (severe) obesity due to excess calories; E87.1 Hypo-osmolality and hyponatremia; M26.9 Dentofacial anomaly, unspecified; Z79.52 Long term (current) use of systemic steroids; Z79.899 Other long term (current) drug therapy; Z88.1 Allergy status to other antibiotic agents; Z91.018 Allergy to other foods; Z68.41 Body mass index [BMI] 40.0-44.9, adult
CPT/HCPCS: 36415; 70450; 71045; 72110; 72125; 72170; 80048; 80053; 81001; 82550; 83735; 84484; 85025; 87507; 93005; 97110; 97161; 97165; 97530; 97535; 99284; G0378

== ENCOUNTER → 2019-01-26 09:17 | Outpatient (CLI) | payer MEDICARE, BC, SELFPAY ==
--- NOTE | 2019-01-26 09:26 | MM_ITS ---
PROCEDURE: MM DIG SCREENING MAMM BI W/CAD Patient Age:68Y CLINICAL INDICATION: SCREENING routine screening mammogram. No hormones but no new complaints. Noncontributory family history. Previous stereotactic biopsy left breast. Difficult to position-had to be held in position COMPARISON: DMSS DIGITAL MAMM SURGICAL SPECIMEN from 08/26/2012 DMDXUL DIG MAMM-DX UNILATERAL-LT from 08/26/2012 DMSB DIG MAMM-SCREEN CHILANGO from 04/25/2014 DMSB DIG MAMM-SCREEN CHILANGO from 05/08/2015 DMSB DIG MAMM-SCREEN CHILANGO W/CAD from 06/26/2016 [facility] MM Dig screening mamm BI w/CAD from 11/27/2017 TECHNIQUE: Standard CC and MLO images were obtained. R2 CAD reviewed. FINDINGS: Low-density breast with generalized fatty replacement. Minimal residual fibroglandular elements towards the anterior right and left breast but no new areas of significant concern. No dominant or suspicious mass. No suspicious calcifications. Scattered benign-appearing calcifications again noted bilaterally.. Previous stereotactic biopsy clip at left breast of again noted bilateral follow-up 1 year recommended IMPRESSION: Stable bilateral mammogram . Negative mammogram with no new areas of significant concern. Bilateral follow-up in 1 year recommended BI-RAD Category: 1 Negative FOLLOW-UP: 1YR 1 Year Follow-up (A letter has been sent to the patient regarding results of the study.) Dictated by: Wayne Martinez MD 01/27/2019 10:07 Electronically signed by Wayne Martinez MD in [place] 01/27/2019 10:07
== END ==
PROVIDERS: PCP Nurse Practitioner Family; Visit Provider Nurse Practitioner Family
DX: Z12.31 Encounter for screening mammogram for malignant neoplasm of breast (principal)
CPT/HCPCS: 77067

== ENCOUNTER → 2019-02-03 15:40 | Outpatient (POV) | payer MEDICARE, BC, SELFPAY | DX: Z00.00 Encounter for general adult medical examination without abnormal findings (principal) ==

== ENCOUNTER → 2019-02-08 13:52 | Outpatient (POV) | payer MEDICARE, BC, SELFPAY ==
[2019-02-08 15:22] LABS: Basophils % 0.4 % (0.1-2.0); Eosinophils # 0.2 K/mm3 (0.0-0.4); Hematocrit 43.9 % (37.0-47.0); Hemoglobin 14.1 g/dL (12.2-16.2); Lymphocytes # 2.9 K/mm3 (0.7-4.5); Lymphocytes % 34.3 % (10-50); Mean Corpuscular HGB Conc 32.1 g/dL (31.8-35.4); Mean Corpuscular Hemoglobin 30.1 pg (27.0-31.2); Mean Corpuscular Volume 93.8 fl (81-99); Monocytes # 0.8 K/mm3 (0.1-1.0); Neutrophils # 4.6 K/mm3 (1.8-7.8); Neutrophils % 54.2 % (37.0-80.0); Platelet Count 256 K/mm3 (142-424); Red Blood Count 4.68 M/mm3 (4.20-5.40); Red Cell Distribution Width 13.7 % (11.5-17.5); White Blood Count 8.5 K/mm3 (4.8-10.8)
[2019-02-08 15:23] LABS: Ammonia 18 umol/L (19-54)
[2019-02-08 15:24] LABS: INR 0.98 (0.9-1.1); Prothrombin Time 10.2 seconds (9.4-11.8)
[2019-02-08 16:16] LABS: Alanine Aminotransferase 23 U/L (12-78); Albumin Level 3.6 gm/dL (3.4-5.0); Albumin/Globulin Ratio 0.9 (1.1-1.8); Alkaline Phosphatase 103 U/L (46-116); Anion Gap 16.7 mEq/L (5-15); Aspartate Amino Transferase 24 U/L (15-37); Bilirubin,Total 0.3 mg/dL (0.2-1.0); Blood Urea Nitrogen 14 mg/dL (7-18); Calcium 9.5 mg/dL (8.5-10.1); Carbon Dioxide 24 mmol/L (21.0-32.0); Chloride 96 mmol/L (98-107); Creatinine,Serum 1.09 mg/dL (0.55-1.02); Estimated Glomerular Filt Rate 49 ml/min (>60); Ferritin 107 ng/mL (8-388); GFR (African American) 60 ML/MIN (>60); Globulin 4.2 gm/dl (1.3-3.2); Glucose 82 mg/dL (74-106); Potassium 4.7 mmoL/L (3.5-5.1); Sodium 132 mmol/L (136-145); Total Protein,Serum 7.8 gm/dL (6.4-8.2)
[2019-02-10 09:55] LABS: Iron 114 ug/dL (27-139); Iron Saturation 28 % (15-55); UIBC 293 ug/dL (118-369)
[2019-02-10 10:49] LABS: AFP, Tumor Marker 5.1 ng/mL (0.0-8.3)
== END ==
PROVIDERS: PCP Internal Medicine Adolescent Medicine; Visit Provider Nurse Practitioner Family
DX: K75.4 Autoimmune hepatitis (principal); K75.3 Granulomatous hepatitis, not elsewhere classified; K74.60 Unspecified cirrhosis of liver
CPT/HCPCS: 36415; 80053; 82105; 82140; 82728; 83540; 83550; 85025; 85610

== ENCOUNTER → 2019-02-15 07:53 | Outpatient (CLI) | payer MEDICARE, BC, SELFPAY ==
--- NOTE | 2019-02-15 07:56 | US_ITS ---
PROCEDURE: US ABDOMEN LIMITED CLINICAL INDICATION: AUTOIMMUNE HEPATITIS, CIRRHOSIS, GRANULOMATOUS HEPATITIS COMPARISON: RUQ US RUQ-(ABD LTD)1ORGAN/QUAD/FU from 08/14/2016 FINDINGS: Liver shows diffuse increased echogenicity without enlargement or focal abnormality. Prior cholecystectomy. Common bile duct is 8.7 millimeters in diameter without intrahepatic biliary dilatation. Visualized portions of the pancreas and IVC are normal although most of these structures are not well imaged. Right kidney is 9.3 centimeters in length with a lower pole anechoic lesion measuring 1.8 centimeters with smooth [place] and mild distal acoustic enhancement. IMPRESSION: Hepatic steatosis or fibrosis. Cholecystectomy. Benign right renal cyst. Dictated by: Sushant Garcia 02/15/2019 11:16 Electronically signed by Sushant Garcia in [place] 02/15/2019 11:16
== END ==
PROVIDERS: PCP Internal Medicine Adolescent Medicine; Visit Provider Nurse Practitioner Family
DX: K74.5 Biliary cirrhosis, unspecified (principal); K75.3 Granulomatous hepatitis, not elsewhere classified; K74.60 Unspecified cirrhosis of liver
CPT/HCPCS: 76705

== ENCOUNTER → 2019-07-05 10:09 | Outpatient (CLI) | payer MEDICARE, BC, SELFPAY ==
--- NOTE | 2019-07-05 10:11 | XR_ITS ---
PROCEDURE: XR DEXA AXIAL SKELETON CLINICAL HISTORY: OSTEOPAROSIS COMPARISON: No exams were available for comparison FINDINGS: Utilizing right hip bone mineral density at the femoral neck was measured to be 0.64 grams/squared centimeter. T-score -1.8 replaced patient the osteopenic category. Utilizing the left forearm total bone mineral density is 0.40 grams/squared centimeter. T-score -3.[address] the patient in the osteoporotic category. IMPRESSION: Osteoporosis of the left forearm and osteopenia of right hip Dictated by: Nathan Olmedo 07/05/2019 15:08 Electronically signed by Nathan Olmedo in [place] 07/05/2019 15:08
[2019-07-05 12:01] LABS: Basophils % 0.7 % (0.1-2.0); Eosinophils # 0.1 K/mm3 (0.0-0.4); Eosinophils % 1.3 % (0.1-12.0); Hematocrit 41.6 % (37.0-47.0); Hemoglobin 14.1 g/dL (12.2-16.2); Lymphocytes % 28.7 % (10-50); Mean Corpuscular Volume 91.2 fl (81-99); Mean Platelet Volume 8.6 fl (7.4-10.4); Monocytes # 0.5 K/mm3 (0.1-1.0); Monocytes % 7.5 % (1.7-9.3); Neutrophils # 4.2 K/mm3 (1.8-7.8); Neutrophils % 61.8 % (37.0-80.0); Platelet Count 215 K/mm3 (142-424); Red Blood Count 4.56 M/mm3 (4.20-5.40); Red Cell Distribution Width 13.1 % (11.5-17.5); White Blood Count 6.8 K/mm3 (4.8-10.8)
[2019-07-05 13:55] LABS: Albumin Level 3.5 g/dL (3.4-5.0); Anion Gap 15.2 mEq/L (5-15); Blood Urea Nitrogen 13 mg/dL (7-18); Calcium 9.2 mg/dL (8.5-10.1); Carbon Dioxide 26 mmol/L (21.0-32.0); Chloride 101 mmol/L (98-107); Estimated Glomerular Filt Rate 49 ml/min (>60); GFR (African American) 59 ML/MIN (>60); Glucose 89 mg/dL (74-106); Phosphorous 3.1 mg/dL (2.4-4.9); Potassium 5.2 mmoL/L (3.5-5.1); Sodium 137 mmol/L (137-145)
[2019-07-05 17:58] LABS: Microscopic, Urine URINE MICROSCOPIC (MICROSCOPIC)
[2019-07-05 18:06] LABS: Appearance,Urine CLEAR (Clear); Bilirubin,Urine Negative (Negative); Blood, Urine Negative (Negative); Color,Urine YELLOW (Yellow); Glucose,Urine (UA) Negative (Negative); Ketones,Urine Negative (Negative); Leukocyte Esterase,Urine TRACE (Negative); Nitrate,Urine Negative (Negative); Protein,Urine Negative (Negative); Specific Gravity, Urine 1.015 (1.005-1.030); Urobilinogen,Urine 0.2 EU/dl (0.2)
[2019-07-05 19:06] LABS: Creatinine,Urine Random 94 mg/dL (20-320); Total Protein,Urine Random 17.3 mg/dL (0.0-11.9)
[2019-07-05 19:09] LABS: Bacteria,Urine Trace /lpf; Squamous Epithelial Cell,Urine Occasional #/hpf (0-5)
[2019-07-09 07:51] LABS: Parathyroid Hormone Intact 30 pg/mL (15-65); Vitamin D 25 Hydroxy 34.9 ng/mL (30.0-100.0)
[2019-07-09 09:34] LABS: Osteocalcin 7.1 ng/mL (.)
[2019-07-09 10:33] LABS: N-Telopeptide Cross-linked 12.4 nmol BCE/L (6.2-19.0); Tandem-R Ostase 12.5 ug/L (.)
== END ==
PROVIDERS: PCP Internal Medicine Adolescent Medicine; Visit Provider Internal Medicine Nephrology
DX: M81.0 Age-related osteoporosis without current pathological fracture (principal); N18.3 Chronic kidney disease, stage 3 (moderate)
CPT/HCPCS: 36415; 77080; 80069; 81001; 82523; 82570; 82652; 83937; 83970; 84080; 84155; 85025

== ENCOUNTER → 2019-07-21 10:07 | Outpatient (POV) | payer MEDICARE, BC, SELFPAY | PROVIDERS: PCP Internal Medicine Nephrology; Visit Provider Internal Medicine Nephrology | DX: Z00.00 Encounter for general adult medical examination without abnormal findings (principal) ==

== ENCOUNTER → 2019-07-29 16:38 | Outpatient (CLI) | payer MEDICARE, BC, SELFPAY ==
[2019-07-29 18:36] LABS: Thyroid Stimulating Hormone 2.36 uIU/mL (0.465-4.68)
== END ==
PROVIDERS: Visit Provider Nurse Practitioner Family
DX: E03.9 Hypothyroidism, unspecified (principal)
CPT/HCPCS: 36415; 84443

== ENCOUNTER 2019-08-25 14:00 | Outpatient (CLI) | payer MEDICARE, BC, SELFPAY ==
[2019-08-25 14:06] VITALS: BMI 41.9
[2019-08-25 14:52] LABS: Albumin Level 4.1 g/dl (3.5-5.0)
[2019-08-25 14:55] LABS: Calcium 9.5 mg/dl (8.4-10.2); Creatinine Clearance Estimated 54 mL/min (50-200); Estimated Glomerular Filt Rate 62 ml/min (>60); GFR (African American) 75 ML/MIN (>60)
[2019-08-25 15:15] VITALS: BP 118/67; PULSE 58; RESP 20; TEMP 36.7; O2SAT 91
[2019-08-25 15:35] VITALS: BP 124/80; PULSE 55; RESP 20; O2SAT 93
== END 2019-08-25 15:35 | disposition home or self-care (01) ==
LOC: INF 14:03
PROVIDERS: Visit Provider Internal Medicine Nephrology
DX: M81.0 Age-related osteoporosis without current pathological fracture (principal)
CPT/HCPCS: 82040; 82310; 82565; 96374; J3489

== ENCOUNTER → 2019-12-02 16:01 | Outpatient (CLI) | payer MEDICARE, BC, SELFPAY ==
[2019-12-02 16:40] LABS: Basophils % 0.5 % (0.1-2.0); Eosinophils # 0.2 K/mm3 (0.0-0.4); Hematocrit 41.3 % (37.0-47.0); Hemoglobin 13.9 g/dL (12.2-16.2); Lymphocytes # 1.9 K/mm3 (0.7-4.5); Lymphocytes % 22.3 % (10-50); Mean Corpuscular HGB Conc 33.5 g/dL (31.8-35.4); Mean Corpuscular Hemoglobin 31.9 pg (27.0-31.2); Mean Corpuscular Volume 95.1 fl (81-99); Mean Platelet Volume 9.2 fl (7.4-10.4); Monocytes # 0.5 K/mm3 (0.1-1.0); Monocytes % 6.2 % (1.7-9.3); Neutrophils % 69.1 % (37.0-80.0); Platelet Count 211 K/mm3 (142-424); Red Blood Count 4.34 M/mm3 (4.20-5.40); Red Cell Distribution Width 13.5 % (11.5-17.5); White Blood Count 8.7 K/mm3 (4.8-10.8)
[2019-12-02 17:53] LABS: Alanine Aminotransferase 45 U/L (12-78); Albumin Level 4.1 g/dl (3.5-5.0); Albumin/Globulin Ratio 1.3 (1.1-1.8); Alkaline Phosphatase 97 U/L (38-126); Aspartate Amino Transferase 62 U/L (14-36); Bilirubin,Total 0.6 mg/dl (0.2-1.3); Blood Urea Nitrogen 11 mg/dl (7-17); Calcium 9.6 mg/dl (8.4-10.2); Carbon Dioxide 29 mmol/L (22.0-30.0); Chloride 95 mmol/L (98-107); Estimated Glomerular Filt Rate 62 ml/min (>60); GFR (African American) 75 ML/MIN (>60); Globulin 3.1 g/dL (1.3-3.2); Glucose 90 mg/dl (74-100); Sodium 133 mmol/L (136-145); Total Protein,Serum 7.2 g/dl (6.3-8.2)
[2019-12-02 18:11] LABS: 25-OH Vitamin D, Total 54.7 ng/mL (30-100)
[2019-12-02 18:25] LABS: Thyroid Stimulating Hormone 3.76 uIU/mL (0.465-4.68)
== END ==
PROVIDERS: Visit Provider Nurse Practitioner Family
DX: I10 Essential (primary) hypertension (principal); E03.9 Hypothyroidism, unspecified; M86.60 Other chronic osteomyelitis, unspecified site; M81.0 Age-related osteoporosis without current pathological fracture
CPT/HCPCS: 36415; 80053; 82306; 84443; 85025

== ENCOUNTER → 2020-03-02 16:49 | Outpatient (CLI) | payer MEDICARE, BC, SELFPAY ==
[2020-03-02 17:15] LABS: Basophils % 0.6 % (0.1-2.0); Eosinophils # 0.3 K/mm3 (0.0-0.4); Hematocrit 44.6 % (37.0-47.0); Hemoglobin 14.3 g/dL (12.2-16.2); Lymphocytes # 2.5 K/mm3 (0.7-4.5); Lymphocytes % 31.8 % (10-50); Mean Corpuscular HGB Conc 32.1 g/dL (31.8-35.4); Mean Corpuscular Hemoglobin 30.5 pg (27.0-31.2); Mean Corpuscular Volume 94.9 fl (81-99); Mean Platelet Volume 8.9 fl (7.4-10.4); Monocytes # 0.6 K/mm3 (0.1-1.0); Monocytes % 8.3 % (1.7-9.3); Neutrophils # 4.3 K/mm3 (1.8-7.8); Neutrophils % 55.3 % (37.0-80.0); Platelet Count 204 K/mm3 (142-424); Red Cell Distribution Width 13.6 % (11.5-17.5); White Blood Count 7.7 K/mm3 (4.8-10.8)
[2020-03-02 19:24] LABS: Alanine Aminotransferase 26 U/L (12-78); Albumin/Globulin Ratio 1.3 (1.1-1.8); Alkaline Phosphatase 89 U/L (38-126); Anion Gap 12.9 mEq/L (5-15); Aspartate Amino Transferase 41 U/L (14-36); Bilirubin,Total 0.3 mg/dl (0.2-1.3); Blood Urea Nitrogen 17 mg/dl (7-17); Calcium 9.4 mg/dl (8.4-10.2); Carbon Dioxide 28 mmol/L (22.0-30.0); Chloride 99 mmol/L (98-107); Estimated Glomerular Filt Rate 62 ml/min (>60); GFR (African American) 74 ML/MIN (>60); Globulin 3.2 g/dL (1.3-3.2); Glucose 102 mg/dl (74-100); Potassium 4.9 mmoL/L (3.5-5.1); Sodium 135 mmol/L (136-145); Total Protein,Serum 7.2 g/dl (6.3-8.2)
[2020-03-02 19:53] LABS: Thyroid Stimulating Hormone 6.64 uIU/mL (0.465-4.68)
== END ==
PROVIDERS: Visit Provider Nurse Practitioner Family
DX: E03.9 Hypothyroidism, unspecified (principal); I10 Essential (primary) hypertension; M86.60 Other chronic osteomyelitis, unspecified site
CPT/HCPCS: 36415; 80053; 84443; 85025

== ENCOUNTER → 2020-03-14 14:19 | Outpatient (CLI) | payer MEDICARE, BC, SELFPAY ==
--- NOTE | 2020-03-14 | XR_ITS ---
PROCEDURE: XR SHOULDER RT MIN 2V CLINICAL INDICATION: RT ANTERIOR SHOULDER PAIN COMPARISON: CR SHOU3L [id number] VIEWS from 11/26/2014 FINDINGS: No fracture or dislocation. No lytic or blastic change. There is normal mineralization. Mild osteoarthritic changes are present at the acromioclavicular joint and glenohumeral joint. There is some spurring along the undersurface of the acromion with subacromial stenosis. Other findings:None. IMPRESSION: Osteoarthritic changes with subacromial stenosis Dictated by: Giancarlo Burnett MD 03/14/2020 16:03 Giancarlo Burnett MD in [place] 03/14/2020 16:03
--- NOTE | 2020-03-14 | XR_ITS ---
PROCEDURE: XR KNEE RT 2V CLINICAL INDICATION: RT ANTERIOR KNEE PAIN COMPARISON: CR [id number] KNEE-4 OR 5 VIEWS-LT from 06/19/2016 CR [id number] KNEE-4 OR 5 VIEWS-RT from 06/19/2016 CR [id number] KNEE-3 VIEWS-RT from 02/03/2017 FINDINGS: No fracture or dislocation. No lytic or blastic change. There is normal mineralization. There are moderate to severe osteoarthritic changes of the right knee greater at the medial compartment and patellofemoral joint but also with involvement of the lateral compartment with osteophyte formation and decrease in the joint space. Other findings:None. IMPRESSION: Moderate to severe osteoarthritis slightly worse Dictated by: Giancarlo Burnett MD 03/14/2020 15:44 Giancarlo Burnett MD in [place] 03/14/2020 15:44
== END ==
PROVIDERS: PCP Nurse Practitioner Family; Visit Provider Nurse Practitioner Family
DX: M25.561 Pain in right knee (principal); M25.511 Pain in right shoulder
CPT/HCPCS: 73030; 73560

== ENCOUNTER → 2020-06-08 15:07 | Outpatient (CLI) | payer MEDICARE, BC, SELFPAY ==
[2020-06-08 17:12] LABS: Anion Gap 11.1 mEq/L (5-15); Blood Urea Nitrogen 13 mg/dl (7-17); Calcium 9.7 mg/dl (8.4-10.2); Carbon Dioxide 29 mmol/L (22.0-30.0); Chloride 101 mmol/L (98-107); Estimated Glomerular Filt Rate 62 ml/min (>60); GFR (African American) 74 ML/MIN (>60); Glucose 88 mg/dl (74-100); Potassium 4.1 mmoL/L (3.5-5.1); Sodium 137 mmol/L (136-145)
[2020-06-08 17:43] LABS: Thyroid Stimulating Hormone 4.12 uIU/mL (0.465-4.68)
== END ==
PROVIDERS: Visit Provider Nurse Practitioner Family
DX: E03.9 Hypothyroidism, unspecified (principal); I10 Essential (primary) hypertension
CPT/HCPCS: 36415; 80048; 84443

== ENCOUNTER → 2020-09-19 10:09 | Outpatient (CLI) | payer MEDICARE, BC, SELFPAY ==
--- NOTE | 2020-09-19 10:13 | XR_ITS ---
PROCEDURE: XR DEXA AXIAL SKELETON CLINICAL HISTORY: OSTEOPOROSIS COMPARISON: CR DEXAAX XR DEXA axial skeleton from 05/21/2018 FINDINGS: The right hip BMD is 0.57 with a T-score of -2.4. The left hip BMD is 0.60 with a T-score of -2.2. The 1/3 forearm is 0.534 BMD with a T-score -2.7 Previously the lowest density within the right femoral neck with T-score -2.5 IMPRESSION: This patient is considered osteoporotic according to the World Health Organization criteria. Fracture risk is high. Treatment is advised. Based on these results a follow-up exam is recommended in 1 year. Dictated by: Giancarlo Burnett MD 09/20/2020 04:57 Giancarlo Burnett MD in [place] 09/20/2020 04:57
[2020-09-19 12:11] LABS: Basophils % 0.4 % (0.1-2.0); Eosinophils # 0.1 K/mm3 (0.0-0.4); Eosinophils % 1.7 % (0.1-12.0); Hematocrit 40.6 % (37.0-47.0); Hemoglobin 13.3 g/dL (12.2-16.2); Lymphocytes # 2.2 K/mm3 (0.7-4.5); Lymphocytes % 33.1 % (10-50); Mean Corpuscular HGB Conc 32.7 g/dL (31.8-35.4); Mean Corpuscular Hemoglobin 30.4 pg (27.0-31.2); Mean Corpuscular Volume 93.1 fl (81-99); Monocytes # 0.5 K/mm3 (0.1-1.0); Neutrophils # 3.9 K/mm3 (1.8-7.8); Neutrophils % 57.8 % (37.0-80.0); Platelet Count 189 K/mm3 (142-424); Red Blood Count 4.36 M/mm3 (4.20-5.40); Red Cell Distribution Width 13.4 % (11.5-17.5); White Blood Count 6.7 K/mm3 (4.8-10.8)
[2020-09-19 12:27] LABS: Chloride 99 mmol/L (98-107); Sodium 132 mmol/L (136-145)
[2020-09-19 12:28] LABS: Potassium 4.9 mmoL/L (3.5-5.1)
[2020-09-19 12:30] LABS: Blood Urea Nitrogen 14 mg/dl (7-17); Estimated Glomerular Filt Rate 62 ml/min (>60); GFR (African American) 74 ML/MIN (>60)
[2020-09-19 12:31] LABS: Anion Gap 11.9 mEq/L (5-15); Calcium 9.3 mg/dl (8.4-10.2); Carbon Dioxide 26 mmol/L (22.0-30.0); Glucose 93 mg/dl (74-100); Phosphorous 3.6 mg/dl (2.5-4.5)
[2020-09-21 16:40] LABS: N-Telopeptide Cross-linked 10.6 nmol BCE/L (6.2-19.0)
[2020-09-22 00:51] LABS: Osteocalcin 4.9 ng/mL (.)
[2020-09-22 10:50] LABS: Tandem-R Ostase 19.3 ug/L (.)
== END ==
PROVIDERS: PCP Internal Medicine Adolescent Medicine; Visit Provider Internal Medicine Nephrology
DX: M81.0 Age-related osteoporosis without current pathological fracture (principal); N18.30 Chronic kidney disease, stage 3 unspecified
CPT/HCPCS: 36415; 77080; 80069; 82306; 82523; 83937; 84080; 85025

== ENCOUNTER → 2020-10-02 09:32 | Outpatient (POV) | payer MEDICARE, BC, SELFPAY | PROVIDERS: Visit Provider Internal Medicine Nephrology | DX: Z00.00 Encounter for general adult medical examination without abnormal findings (principal) ==

== ENCOUNTER → 2020-10-31 15:07 | Outpatient (CLI) | payer MEDICARE, BC, SELFPAY ==
--- NOTE | 2020-10-31 15:17 | CA_ITS ---
APPROVED REPORT Right Lower Extremity Venous Study for DVT. Hog Worker: LAUREL/ZEB Indications Lower Extremity Pain: Right Lower Extremity Edema: Right Risk Factors Obesity Technically difficult exam due to large body habitus. Vein Imaging CFV (R): compressive, spontaneous, phasic, augmentation SFJ (R): compressive, spontaneous, phasic, augmentation FEM (R): compressive, spontaneous, phasic, augmentation POP (R): compressive, spontaneous, phasic, augmentation DFV (R): compressive, spontaneous, phasic, augmentation PTV (R): compressive, spontaneous, phasic, augmentation GSV (R): compressive, spontaneous, phasic, augmentation SSV (R): compressive, spontaneous, phasic, augmentation Peroneals (R):compressive, spontaneous, phasic, augmentation GAS (R): compressive, spontaneous, phasic, augmentation Findings Color flow duplex demonstrates no evidence of DVT of the following right lower extremity Veins:Common Femoral Vein, Femoral Vein, Popliteal Vein, Posterior Tibial Veins, Peroneal Veins, Deep Femoral Vein. Negative for DVT. Conclusion Negative for DVT. Electronically signed by : Mohamud Abraham MD 11/02/2020 11:43:32
[2020-10-31 17:17] LABS: Basophils % 0.5 % (0.1-2.0); Eosinophils # 0.1 K/mm3 (0.0-0.4); Eosinophils % 1.5 % (0.1-12.0); Hematocrit 42.6 % (37.0-47.0); Hemoglobin 14.4 g/dL (12.2-16.2); Lymphocytes # 2.1 K/mm3 (0.7-4.5); Lymphocytes % 27.4 % (10-50); Mean Corpuscular HGB Conc 33.8 g/dL (31.8-35.4); Mean Corpuscular Hemoglobin 31.3 pg (27.0-31.2); Mean Corpuscular Volume 92.5 fl (81-99); Mean Platelet Volume 9.1 fl (7.4-10.4); Monocytes # 0.8 K/mm3 (0.1-1.0); Neutrophils # 4.7 K/mm3 (1.8-7.8); Neutrophils % 60.5 % (37.0-80.0); Platelet Count 191 K/mm3 (142-424); Red Blood Count 4.61 M/mm3 (4.20-5.40); Red Cell Distribution Width 13.3 % (11.5-17.5); White Blood Count 7.8 K/mm3 (4.8-10.8)
[2020-10-31 19:39] LABS: Chloride 99 mmol/L (98-107); Sodium 136 mmol/L (136-145)
[2020-10-31 19:40] LABS: Potassium 4.4 mmoL/L (3.5-5.1)
[2020-10-31 19:42] LABS: Alanine Aminotransferase 37 U/L (12-78); Albumin Level 4.2 g/dl (3.5-5.0); Albumin/Globulin Ratio 1.3 (1.1-1.8); Alkaline Phosphatase 89 U/L (38-126); Anion Gap 16.4 mEq/L (5-15); Aspartate Amino Transferase 50 U/L (14-36); Bilirubin,Total 0.6 mg/dl (0.2-1.3); Blood Urea Nitrogen 11 mg/dl (7-17); Calcium 9.6 mg/dl (8.4-10.2); Carbon Dioxide 25 mmol/L (22.0-30.0); Estimated Glomerular Filt Rate 62 ml/min (>60); GFR (African American) 74 ML/MIN (>60); Globulin 3.2 g/dL (1.3-3.2); Glucose 72 mg/dl (74-100); Total Protein,Serum 7.4 g/dl (6.3-8.2)
[2020-10-31 19:43] LABS: Magnesium 1.8 mg/dl (1.6-2.3)
[2020-10-31 20:13] LABS: Thyroid Stimulating Hormone 1.37 uIU/mL (0.465-4.68)
== END ==
PROVIDERS: PCP Internal Medicine Adolescent Medicine; Visit Provider Internal Medicine Adolescent Medicine
DX: M79.89 Other specified soft tissue disorders (principal); R60.1 Generalized edema
CPT/HCPCS: 36415; 80053; 83735; 84443; 85025; 93971

== ENCOUNTER → 2021-04-05 19:45 | Outpatient (CLI) | payer MEDICARE, BC, SELFPAY ==
[2021-04-06 13:19] LABS: Microscopic, Urine URINE MICROSCOPIC (MICROSCOPIC)
[2021-04-06 13:46] LABS: Appearance,Urine CLEAR (Clear); Bilirubin,Urine Negative (Negative); Blood, Urine 3+ (Negative); Color,Urine YELLOW (Yellow); Glucose,Urine (UA) Negative (Negative); Ketones,Urine Negative (Negative); Leukocyte Esterase,Urine 3+ (Negative); Nitrate,Urine POSITIVE (Negative); Protein,Urine 2+ (Negative); Urobilinogen,Urine 0.2 EU/dl (0.2)
[2021-04-06 14:02] LABS: Amorphous Sediment,Urine 1+ /lpf; Bacteria,Urine 2+ /lpf
== END ==
LOC: LAB 04-06 13:12 → LAB.DROPOF 04-06 13:19
PROVIDERS: Visit Provider Nurse Practitioner Family
DX: R30.0 Dysuria (principal); B96.1 Klebsiella pneumoniae [K. pneumoniae] as the cause of diseases classified elsewhere
CPT/HCPCS: 81001; 87086; 87186

== ENCOUNTER 2021-05-29 15:00 | Outpatient (RCR) | payer MEDICARE, BC, SELFPAY ==
--- NOTE | 2021-04-17 16:19 | HMH.RHREAS ---
Rehab Reassessment Rehab OP Re-assessment Start: 04/17/21 16:15 Freq: Status: Active Protocol: Document 04/17/21 16:15 SESAR (Rec: 04/17/21 16:19 [email or web address] [id number]) Electronically Signed By Eldon Reynolds, PT 04/17/21 16:15 Rehab Re-assessment Subjective Subjective Pt reports, My leg just keeps getting these blisters, I don 't understand it. Pt has not been present for treatment for ~ 3 wks. Objective Objective Notes R anterior Lower leg wounds: L =19.0 cm, W= 12.0 cm. Assessment Progress Assessment Slower Than Expected Assessment Notes Pt had been improving steadily , but was apparent;ly unable to come to therapy for several weeks and R LE has returned to its previous state. She continues to be minimally compliant with home treatment and keeps the R LE in dependent position even when in bed. Patient goals met none Goals Not Met ST,2,3 LT,2,3,4 Revised Goals none Plan Plan Continue per initial POC. Frequency of Therapy 2 x/wk Duration of therapy 8 wks Time and Billing Re-Eval Time 15 Re-Eval Billing Units 0 PHYSICIAN CERTIFICATION: I certify the specified therapy services for Brianda Larios are required, authorized, and reviewed every 30 days.
--- NOTE | 2021-05-16 14:34 | HMH.RHREAS ---
Rehab Reassessment Rehab OP Re-assessment Start: 04/17/21 16:15 Freq: Status: Active Protocol: Document 05/16/21 14:31 SESAR (Rec: 05/16/21 14:34 SESAR [id number]) Electronically Signed By Eldon Reynolds, PT 05/16/21 14:31 Rehab Re-assessment Subjective Subjective Pt reports much less problems with her R LE now due to changing her sleeping arrangements to keep her R LE from falling out of the bed all the time. Objective Objective Notes R anterior Lower leg wounds: L =2.0 cm, W= 1.0 cm. Assessment Progress Assessment Progressing as Expected Assessment Notes Much less edema overal, but some pitting remains. Tolerating compression well. Wounds healing very well with considerably smaller size and healthy wound bed. Patient goals met ST,2,3 Goals Not Met LT,2,3,4 Revised Goals none Plan Plan Continue per initial POC. Frequency of Therapy 2 x/wk Duration of therapy 8 wks Time and Billing Re-Eval Time 15 Re-Eval Billing Units 0 PHYSICIAN CERTIFICATION: I certify the specified therapy services for Brianda Larios are required, authorized, and reviewed every 30 days.
== END 2021-05-29 15:05 | disposition home or self-care (01) ==
LOC: PT 15:00
PROVIDERS: PCP Internal Medicine Adolescent Medicine; Visit Provider Nurse Practitioner Family
DX: R60.0 Localized edema (principal); S81.801D Unspecified open wound, right lower leg, subsequent encounter; L03.115 Cellulitis of right lower limb
CPT/HCPCS: 29580; 97140; 97162; 97164; 97597; 97760

== ENCOUNTER 2021-11-12 15:03 | Observation (INO) | payer MEDICARE, BC, SELFPAY ==
--- NOTE | 2021-11-12 15:18 | HMH.PHAINT ---
MEDICATION RECONCILIATION COMPLETED ON PATIENT USING EXTERNAL FILL HISTORY FROM PHARMACY AND [facility] REPORT. -TRISTEN KHOURYD
--- NOTE | 2021-11-12 15:24 | XR_ITS ---
FINAL REPORT CLINICAL HISTORY: pain, fall FINDINGS: 2 views of the right ankle were obtained. There is no acute fracture or dislocation. There are mild degenerative changes. There is a small plantar calcaneal spur. There is no soft tissue abnormality. IMPRESSION: No acute process. Reviewed, Interpreted and Dictated by Luis Sosa III, MD Transcribed by Tyshawn Joel Authenticated and [facility]
--- NOTE | 2021-11-12 15:24 | XR_ITS ---
FINAL REPORT CLINICAL HISTORY: pain, fall COMPARISON: March 14, 2020 FINDINGS: Two views of the right knee were obtained. There is no evidence of fracture or dislocation. There are moderate to severe degenerative changes with medial compartment narrowing. There is chronic irregularity of the medial femoral condyle. There is mild lateral subluxation of the tibia relative to the distal femur. There is no evidence of joint effusion. No localized soft tissue abnormality is identified. IMPRESSION: No acute bony abnormality. Moderate to severe degenerative change. Reviewed, Interpreted and Dictated by Luis Sosa III, MD Transcribed by Tyshawn Joel Authenticated and [facility]
[2021-11-12 16:46] VITALS: BMI 43.2
[2021-11-12 17:17] VITALS: BP 126/60; PULSE 60; RESP 16; TEMP 36.6; O2SAT 98
[2021-11-12 17:24] LABS: Coronavirus 19, PCR Not Detected (NotDetected); Influenza A, PCR Not Detected (NotDetected); Influenza B, PCR Not Detected (NotDetected)
[2021-11-12 18:01] LABS: Chloride 97 mmol/L (98-107); Potassium 4.1 mmoL/L (3.5-5.1); Sodium 130 mmol/L (136-145)
[2021-11-12 18:04] LABS: Anion Gap 11.1 mEq/L (5-15); Blood Urea Nitrogen 11 mg/dl (7-17); Calcium 9.4 mg/dl (8.4-10.2); Carbon Dioxide 26 mmol/L (22.0-30.0); Creatinine Clearance Estimated 51 mL/min (50-200); Estimated Glomerular Filt Rate 61 ml/min (>60); GFR (African American) 74 ML/MIN (>60); Glucose 97 mg/dl (74-100)
[2021-11-12 18:05] LABS: Lactic Acid 1.8 mmol/L (0.7-2.1); Magnesium 1.7 mg/dl (1.6-2.3)
[2021-11-12 18:18] LABS: Basophils # 0.1 K/mm3 (0-0.2); Basophils % 1.1 % (0.1-2.0); Eosinophils # 0.3 K/mm3 (0.0-0.4); Eosinophils % 3.5 % (0.1-12.0); Hematocrit 46.1 % (37.0-47.0); Hemoglobin 13.8 g/dL (12.2-16.2); Mean Corpuscular HGB Conc 29.9 g/dL (31.8-35.4); Mean Corpuscular Hemoglobin 29.5 pg (27.0-31.2); Mean Corpuscular Volume 98.8 fl (81-99); Mean Platelet Volume 9.2 fl (7.4-10.4); Monocytes # 0.6 K/mm3 (0.1-1.0); Monocytes % 7.6 % (1.7-9.3); Neutrophils # 5.2 K/mm3 (1.8-7.8); Neutrophils % 63.9 % (37.0-80.0); Platelet Count 201 K/mm3 (142-424); Red Blood Count 4.67 M/mm3 (4.20-5.40); Red Cell Distribution Width 13.4 % (11.5-17.5); White Blood Count 8.2 K/mm3 (4.8-10.8)
--- NOTE | 2021-11-12 20:52 | HMH.HP ---
*Admission Date: 11/12/21 *Chief complaint: right leg swelling, unable to walk *History of present illness: 71 year old female with extensive past medical history including chronic infection of spinal hardware, morbid obesity, chronic pain, lymphedema and chronic lung disease seen today in clinic with complaints of erythema, blisters and pain in her right lower leg. This has been intermittently problematic over the past 6 months and has recurred despite outpatient antibiotics, home compression pump, attempts to reposition and oral diuresis. She is spending all of her time in a hospital bed but hangs the right leg out despite urging from her and positioning devices to help keep that leg in the bed and elevated. She has fallen twice over the past couple of weeks while trying to pivot to her bedside commode and after her most recent fall hasn't been able to bear full weight on the right leg. Fire department had to come help her get her out of the house today. On exam she was noted to have marked edema of the right lower leg, weeping, erythema and warmth and was admitted for IV diuresis, antibiotics and diagnostics as well as consideration for placement in subacute rehabilitation facility. [facility] History I have reviewed the patient's past medical history: Yes Medical History: Reports:: Congestive Heart Failure, Coronary Artery Disease, Home Oxygen, Hypertension, Lung Disease (pulmonary fibrosis), MRSA, Osteoporosis Denies:: Cancer, Diabetes Mellitus Type 1, Diabetes Mellitus Type 2 *Have you ever received a pneumonia vaccine?: Yes *Have you received a flu vaccine this season?: Yes Other Medical History: Reports: Arthritis, Hypothyroidism, Liver DiseaseComment Only: Sinus Problems (SEASONAL ALLERGIES) Laterality Cases: Left: Arthroscopy Shoulder, Bilateral: Carpal Tunnel Release Other Surgeries: Yes: Cholecystectomy, Colonoscopy, EGD, Tubal Ligation, Other (BREAST BIOPSIES, MULTIPLE BACK SURGERIES) Amputation: No - *Social History Last grade of school completed: Some college Smoking Status: Never smoker Alcohol Intake: never *Occupational Status:: retired Housing: house Household Members: spouse *Travel in the last 8 weeks: None - Psychiatric History Pschychiatric History:: Reports:: Depression Family Hx:: Coronary Artery Disease, Diabetes, Hypertension Review of Systems - Review of Systems Review of systems:: pertinent systems reviewed and negative unless documented below - Constitutional Reports daytime sleepiness, Reports fatigue, Reports weakness, Denies fever(s) - ENT Reports dry mouth - *Cardiovascular Reports shortness of breath, Reports leg swelling, Reports leg sores - *Respiratory Denies cough - *Gastrointestinal Denies abdominal pain, Denies loose stools, Denies nausea - *Musculoskeletal Reports joint pain, Reports back pain, Reports muscle weakness, Reports stiffness - Integumentary/Breasts Reports redness, Reports skin ulcer - *Neurologic Reports frequent falls - Psychiatric Reports abnormal sleep pattern Meds Home Medications Medication Instructions Recorded Confirmed Type Amitriptyline HCl [Elavil 25mg 25 mg PO HS 10/19/18 11/12/21 History tablet] Calcium Carb, Citrate/Vit D3 1 each PO DAILY 10/19/18 11/12/21 History [Calcium + D3 ER Tablet] Cholecalciferol (Vitamin D3) 1,000 unit PO DAILY 10/19/18 11/12/21 History [Vitamin D3 1,000 Unit Cap] Escitalopram Oxalate 10 mg PO DAILY 10/19/18 11/12/21 History Fexofenadine/Pseudoephedrine 1 tab PO DAILY 10/19/18 11/12/21 History [Joyce-D 24 Hour Tablet] Multivit-Min/Iron/Folic/Lutein 1 each PO DAILY 10/19/18 11/12/21 History [Centrum Silver Women Tablet] Pregabalin [Lyrica 150mg Cap] 150 mg PO BID 10/19/18 11/12/21 History Trazodone HCl 150 mg PO HS 10/19/18 11/12/21 History Ursodiol 1,000 mg PO BID 10/19/18 11/12/21 History azaTHIOprine [azaTHIOprine 50mg 50 mg PO DAILY 10/19/18 11/12/21 History Tablet] bisoproloL
[2021-11-13 05:00] VITALS: BP 133/56; PULSE 64; RESP 20; TEMP 36.6; O2SAT 95; BMI 43.0
--- NOTE | 2021-11-13 05:44 | PC.NURSE ---
Pt alert and orietned. Leg remains inflamed and has water blisters. currently intact. Voiced 0 pain. Incont of bladder. Pt stated that she wears a brief at home. voiced that she is unable to ambulate at this time. Uses call leos approp. no needs expressed at this time.
[2021-11-13 06:38] LABS: Basophils # 0.1 K/mm3 (0-0.2); Eosinophils # 0.3 K/mm3 (0.0-0.4); Eosinophils % 4.8 % (0.1-12.0); Monocytes # 0.5 K/mm3 (0.1-1.0); Red Cell Distribution Width 13.5 % (11.5-17.5)
[2021-11-13 06:50] LABS: Basophils % 1.1 % (0.1-2.0); Hematocrit 40.4 % (37.0-47.0); Lymphocytes # 1.5 K/mm3 (0.7-4.5); Mean Corpuscular HGB Conc 30.9 g/dL (31.8-35.4); Mean Corpuscular Volume 100.3 fl (81-99); Monocytes % 7.8 % (1.7-9.3); Neutrophils # 4.3 K/mm3 (1.8-7.8); Neutrophils % 64.3 % (37.0-80.0); Platelet Count 173 K/mm3 (142-424); Red Blood Count 4.03 M/mm3 (4.20-5.40); White Blood Count 6.7 K/mm3 (4.8-10.8)
[2021-11-13 06:54] LABS: Chloride 98 mmol/L (98-107); Sodium 129 mmol/L (136-145)
[2021-11-13 06:55] LABS: Potassium 4.4 mmoL/L (3.5-5.1)
[2021-11-13 06:57] LABS: Hemoglobin 12.5 g/dL (12.2-16.2)
[2021-11-13 06:58] LABS: Blood Urea Nitrogen 9 mg/dl (7-17); Calcium 8.5 mg/dl (8.4-10.2); Creatinine Clearance Estimated 51 mL/min (50-200); Estimated Glomerular Filt Rate 70 ml/min (>60); GFR (African American) 85 ML/MIN (>60); Glucose 96 mg/dl (74-100)
--- NOTE | 2021-11-13 07:00 | CA_ITS ---
FINAL REPORT TECHNIQUE: Color Doppler, duplex Doppler and compression sonography of the right lower extremity venous system was performed. CLINICAL HISTORY: swelling right lower extremity, obesity, home o2, lymphedema, blisters on RLE, weeping, warm, red Ht 5'8 Wt 282 lb FINDINGS: Note is made that this was a limited study secondary to patient body habitus, peroneal and calf vessels were not visualized. There is no evidence of deep venous thrombosis in the visualized vessels. The visualized veins are patent and compressible. IMPRESSION: Limited study without evidence of DVT. Reviewed, Interpreted and Dictated by Luis Sosa III, MD Transcribed by Charity Banuelos Authenticated and [facility]
[2021-11-13 07:22] LABS: Anion Gap 7.4 mEq/L (5-15); Carbon Dioxide 28 mmol/L (22.0-30.0)
--- NOTE | 2021-11-13 07:29 | HMH.ACPN2 ---
Internal Medicine - PN: Subj *Date: 11/13/21 *Time: 08:00 Interval history: Ms. Larios did well overnight. No fever. Tolerating p.o. intake this morning. No vomiting or diarrhea. Pure-wick in place draining light yellow urine. Leg still red and swollen, little bit less puffy per patient report. Exam Vital signs and Labs for Last 24 Hours: Temp Pulse Resp BP Pulse Ox 97.9 F 64 20 133/56 L 95 11/13/21 05:00 11/13/21 05:00 11/13/21 05:00 11/13/21 05:00 11/13/21 05:00 Laboratory Results - last 24 hr 11/12/21 16:55: SARS-CoV-2 (PCR) Not detected, Influenza A Untype (PCR) Not detected, Influenza Type B (PCR) Not detected 11/12/21 17:40: WBC 8.2, RBC 4.67, Hgb 13.8, Hct 46.1, MCV 98.8, MCH 29.5, MCHC 29.9 L, RDW 13.4, Plt Count 201, MPV 9.2, Neut % (Auto) 63.9, Lymph % (Auto) 24.0, [place] % (Auto) 7.6, Eos % (Auto) 3.5, Baso % (Auto) 1.1, Neut # (Auto) 5.2, Lymph # (Auto) 2.0, [place] # (Auto) 0.6, Eos # (Auto) 0.3, Baso # (Auto) 0.1 11/12/21 17:40: Sodium 130 L, Potassium 4.1, Chloride 97 L, Carbon Dioxide 26, Anion Gap 11.1, BUN 11, Creatinine 0.90, Estimated Creat Clear 51, Estimated GFR 61, Est GFR ( Amer) 74, Glucose 97, Calcium 9.4, Magnesium 1.7 11/12/21 17:40: Lactate 1.8 11/13/21 05:58: WBC 6.7, RBC 4.03 L, Hgb 12.5, Hct 40.4, MCV 100.3 H, MCH 31.0, MCHC 30.9 L, RDW 13.5, Plt Count 173, MPV 9.0, Neut % (Auto) 64.3, Lymph % (Auto) 22.0, [place] % (Auto) 7.8, Eos % (Auto) 4.8, Baso % (Auto) 1.1, Neut # (Auto) 4.3, Lymph # (Auto) 1.5, [place] # (Auto) 0.5, Eos # (Auto) 0.3, Baso # (Auto) 0.1 11/13/21 05:58: Sodium 129 L, Potassium 4.4, Chloride 98, Carbon Dioxide 28, Anion Gap 7.4, BUN 9, Creatinine 0.80, Estimated Creat Clear 51, Estimated GFR 70, Est GFR ( Amer) 85, Glucose 96, Calcium 8.5 I & O for Last 24 hours: Intake & Output 11/10/21 11/11/21 11/12/21 11/13/21 23:59 23:59 23:59 23:59 Intake Total 240 / 360 120 / 120 Balance 240 / 360 120 / 120 Weight 128.956 kg 128.73 kg Narrative: - Constitutional no acute distress, morbidly obese, chronically ill appearing - *Routine HEENT Exam Head: Present: normocephalic Eye: Present: conjunctivae pink ENT: Present: mucous membranes moist, oropharynx clear - *Routine Neck Exam Present: supple. Absent: lymphadenopathy, tenderness - *Routine Respiratory Exam Present: decreased breath sounds, CTA bilaterally - *Routine Cardiovascular Exam Present: RRR - *Routine Abdominal Exam Present: soft, normoactive bowel sounds, obese - *Routine Extremities Exam Present: edema, pulses intact (erythema and warmth of the right lower leg, weeping, erosions) - *Routine Skin Exam Present: erythema, warm. Absent: jaundice - *Routine Neurological Exam Present: alert, oriented X3, moving all extremities. Absent: tremors Assessment and Plan (1) Cellulitis of right lower extremity Status: Acute Category: Medical Code(s): L03.115 - Cellulitis of right lower limb (2) Lymphedema Status: Chronic Category: Medical Code(s): I89.0 - Lymphedema, not elsewhere classified (3) Physical debility Status: Chronic Category: Medical Code(s): R53.81 - Other malaise (4) Peripheral edema Status: Acute Category: Medical Code(s): R60.9 - Edema, unspecified (5) Falls frequently Status: Chronic Category: Medical Code(s): R29.6 - Repeated falls (6) Hyponatremia Status: Chronic Category: Medical Code(s): E87.1 - Hypo-osmolality and hyponatremia (7) Morbid obesity Status: Chronic Category: Medical Code(s): E66.01 - Morbid (severe) obesity due to excess calories (8) Right knee pain Status: Acute Category: Medical Code(s): M25.561 - Pain in right knee (9) Right ankle pain Status: Acute Category: Medical Code(s): M25.571 - Pain in right ankle and joints of right foot (10) Obesity, Class III, BMI 40-49.9 (morbid obesity) Status: Chronic Category: Medical Code(s): E66.01 - Morbid (severe) obesity du
--- NOTE | 2021-11-13 07:44 | HMH.PHACONS ---
- Pharmacy Consult Date: 11/13/21 Time: 07:44 Referring provider: DR. WELSH Reason for Consult:: VANCOMYCIN DOSING Allergies and ADEs:: Allergies Allergy/AdvReac Type Severity Reaction Status Date / Time adhesive tape Allergy Mild Rash Verified 08/25/19 14:17 erythromycin base Allergy Unknown Unknown Verified 08/25/19 14:17 [ERYTHROMYCIN BASE] allergy reaction nitrofurantoin Allergy Unknown Unknown Verified 08/25/19 14:17 [From MACROBID] allergy reaction gluten AdvReac Severe DIARRHEA Verified 08/25/19 14:17 [From GLUTEN (FOOD/DRUG)] Home Medications:: Home Medications Medication Instructions Recorded Confirmed Type Amitriptyline HCl [Elavil 25mg 25 mg PO HS 10/19/18 11/12/21 History tablet] Calcium Carb, Citrate/Vit D3 1 each PO DAILY 10/19/18 11/12/21 History [Calcium + D3 ER Tablet] Cholecalciferol (Vitamin D3) 1,000 unit PO DAILY 10/19/18 11/12/21 History [Vitamin D3 1,000 Unit Cap] Escitalopram Oxalate 10 mg PO DAILY 10/19/18 11/12/21 History Fexofenadine/Pseudoephedrine 1 tab PO DAILY 10/19/18 11/12/21 History [Joyce-D 24 Hour Tablet] Multivit-Min/Iron/Folic/Lutein 1 each PO DAILY 10/19/18 11/12/21 History [Centrum Silver Women Tablet] Pregabalin [Lyrica 150mg Cap] 150 mg PO BID 10/19/18 11/12/21 History Trazodone HCl 150 mg PO HS 10/19/18 11/12/21 History Ursodiol 1,000 mg PO BID 10/19/18 11/12/21 History azaTHIOprine [azaTHIOprine 50mg 50 mg PO DAILY 10/19/18 11/12/21 History Tablet] bisoproloL fumarate [Bisoprolol 10 mg PO DAILY 10/19/18 11/12/21 History 10mg Tablet] predniSONE [Deltasone 1mg tablet] 4 mg PO DAILY 10/19/18 11/12/21 History Omeprazole 20 mg PO DAILY 10/20/18 11/12/21 History Sulfamethoxazole/Trimethoprim 1 each PO BID 08/25/19 11/12/21 History [Bactrim DS tablet] Hydrocodone/Acetaminophen 1 each PO QIDP PRN 11/12/21 11/12/21 History [Hydrocodone-Acetamin 10-325 mg] Latanoprost/Pf [Latanoprost 0.005% 1 drp OP HS 11/12/21 11/12/21 History Eye Drop] Levothyroxine Sodium 125 mcg PO DAILY 11/12/21 11/12/21 History [Levothyroxine 125mcg (0.125mg) Tab] Height: 1.73 m Weight: 128.73 kg Laboratory Results:: Laboratory Results - last 24 hr 11/12/21 16:55: SARS-CoV-2 (PCR) Not detected, Influenza A Untype (PCR) Not detected, Influenza Type B (PCR) Not detected 11/12/21 17:40: WBC 8.2, RBC 4.67, Hgb 13.8, Hct 46.1, MCV 98.8, MCH 29.5, MCHC 29.9 L, RDW 13.4, Plt Count 201, MPV 9.2, Neut % (Auto) 63.9, Lymph % (Auto) 24.0, [place] % (Auto) 7.6, Eos % (Auto) 3.5, Baso % (Auto) 1.1, Neut # (Auto) 5.2, Lymph # (Auto) 2.0, [place] # (Auto) 0.6, Eos # (Auto) 0.3, Baso # (Auto) 0.1 11/12/21 17:40: Sodium 130 L, Potassium 4.1, Chloride 97 L, Carbon Dioxide 26, Anion Gap 11.1, BUN 11, Creatinine 0.90, Estimated Creat Clear 51, Estimated GFR 61, Est GFR ( Amer) 74, Glucose 97, Calcium 9.4, Magnesium 1.7 11/12/21 17:40: Lactate 1.8 11/13/21 05:58: WBC 6.7, RBC 4.03 L, Hgb 12.5, Hct 40.4, MCV 100.3 H, MCH 31.0, MCHC 30.9 L, RDW 13.5, Plt Count 173, MPV 9.0, Neut % (Auto) 64.3, Lymph % (Auto) 22.0, [place] % (Auto) 7.8, Eos % (Auto) 4.8, Baso % (Auto) 1.1, Neut # (Auto) 4.3, Lymph # (Auto) 1.5, [place] # (Auto) 0.5, Eos # (Auto) 0.3, Baso # (Auto) 0.1 11/13/21 05:58: Sodium 129 L, Potassium 4.4, Chloride 98, Carbon Dioxide 28, Anion Gap 7.4, BUN 9, Creatinine 0.80, Estimated Creat Clear 51, Estimated GFR 70, Est GFR ( Amer) 85, Glucose 96, Calcium 8.5 Medical History: Reports:: Congestive Heart Failure, Coronary Artery Disease, Depression, Home Oxygen, Hypertension, Lung Disease (pulmonary fibrosis), MRSA, Osteoporosis Denies:: Cancer, Diabetes Mellitus Type 1, Diabetes Mellitus Type 2 Assessment and Plan (1) Cellulitis of right lower extremity Status: Acute Category: Medical Code(s): L03.115 - Cellulitis of right lower limb (2) Lymphedema Status: Chronic Category: Medical Code(s): I89.0 - Lymphedema, not elsewhere classified
--- NOTE | 2021-11-13 07:46 | HMH.PHAVTE ---
[facility] Pharmacy VTE Monitoring - Patient Demographics Admission date: 11/12/21 Report Date: 11/13/21 Time: 07:46 Allergies/Adverse Reactions: Patient Allergies adhesive tape Allergy (Mild, Verified 08/25/19 14:17) Rash erythromycin base [ERYTHROMYCIN BASE] Allergy (Unknown, Verified 08/25/19 14:17) Unknown allergy reaction nitrofurantoin [From MACROBID] Allergy (Unknown, Verified 08/25/19 14:17) Unknown allergy reaction gluten [From GLUTEN (FOOD/DRUG)] Adverse Reaction (Severe, Verified 08/25/19 14:17) DIARRHEA Height: 1.73 m Weight: 128.73 kg Patient Problems: Current Active Problems Falls frequently (Chronic) Morbid obesity (Chronic) Hyponatremia (Chronic) Cellulitis of right lower extremity (Acute) Lymphedema (Chronic) Physical debility (Chronic) Peripheral edema (Acute) Right knee pain (Acute) Right ankle pain (Acute) Obesity, Class III, BMI 40-49.9 (morbid obesity) (Chronic) - VTE Risk Labs: VTE Related Lab Results Hgb 12.5 g/dL (12.2-16.2) 11/13/21 05:58 Hct 40.4 % (37.0-47.0) 11/13/21 05:58 Plt Count 173 K/mm3 (142-424) 11/13/21 05:58 BUN 9 mg/dl (7-17) 11/13/21 05:58 Creatinine 0.80 mg/dl (0.52-1.04) 11/13/21 05:58 Estimated Creat Clear 51 mL/min (50-200) 11/13/21 05:58 - Prophylaxis VTE Prophylaxis Ordered?: Yes Types of VTE Prophylaxis: TEDS Knee High Location of Applied Device: Left Leg
[2021-11-13 08:00] VITALS: BP 119/74; PULSE 67; RESP 20; TEMP 36.9; O2SAT 96
--- NOTE | 2021-11-13 09:28 | SW/DCPLANNER ---
Addendum entered by Rita Hom[place] 11/14/21 08:24: The plan for this patient is to discharge to [facility] today: COVID swab will be colleted prior to discharge. Addendum entered by Rita Homosassa 11/13/21 15:34: Mikayla w/ [facility] in [place] stated she can accept this patient tomorrow. I have updated this patient and she is agreeable. [facility] and [facility] can not accept this patient at this time. Addendum entered by Rita Homosassa 11/13/21 11:23: I explained to this patient that at this time [facility] require a three day qualifying stay for SNF level of care. Patient is agreeable to [facility] or [place] facilities at this time. [facility] has requested patient information to reviewed along with Mikayla from [facility]. Patient information has been faxed to [facility] and [facility] at this time. Original Note: I spoke with this patient this AM regarding discharge plans. Patient expressed that she has been to [facility] in the past and is interested in returning once medically stable for discharge. Once PT/OT evaluation is completed patient information will be faxed to [facility]. Eileen did inform me that she does have female beds available at this time.
--- NOTE | 2021-11-13 09:34 | HMH.PTEV ---
Physical Therapy Evaluation Rehab PT IP Evaluation Start: 11/12/21 15:32 Freq: ONCE Status: Active Protocol: Document 11/13/21 09:27 PHORZARA (Rec: 11/13/21 09:34 PHORNE [id number]) Subjective/History History History 71 yowf who presents with c/o blisters and swelling in R LE and several falls at home with R LE pain. She reports she lives with , uses walker for ambulation, wears O2 at night only, has a ramp to enter the home. R lower leg is erythematous with several small bullae noted and at least one has opened and is draining serous fluid. Subjective Subjective She reports, I can't walk on this right leg because it hurts too much. Rehab PT IP Eval Objective Appearance Patient Behavior Appropriate Patient Orientation Person,Place,Time Difficulty following instructions none Speech Pattern Clear Ambulation Patient Able to Ambulate Yes Ambulation Observation IP General Gait Pattern Observation Antalgic Gait,Shuffling Step Ambulation Distance (feet) 5 Ambulation Assistive Device Rolling Walker Ambulation Ability Contact Guard/Hand Hold Balance Ability to Arise Able, uses arms to help Sitting Balance Steady, safe Standing Balance Steady, wide stance Dynamic Sitting Balance Ability Good Dynamic Standing Balance Ability Fair Transfers Bed Transfer Ability Minimal x 1 (25% assist) Chair Transfer Ability Contact Guard/Hand Hold Sit to Stand Bed Transfer Ability Minimal x 1 (25% assist) Sit to Stand Chair Transfer Ability Minimal x 1 (25% assist) Rehab PT IP prob,goals,plan Problems Date of Evaluation: 11/13/21 PT IP Problems Bed Mobility,Transfers,Gait, Self care,Other Other Pt Problem R LE wounds Rehab Potential Rehab Potential Good Plan PT Intervention Plan Bed Mobility,Transfers,Gait, Self care,Therapeutic Exercise PT Plan Frequency BID Duration LOS Discharge Goals Bed Transfer Ability Contact Guard/Hand Hold Sit to Stand Chair Transfer Ability Contact Guard/Hand Hold Ambulation Assistive Device Rolling Walker Ambulation Distance (feet) 20 Discharge Plan PT Discharge Plan Pt is currently most appropriate for rehab
--- NOTE | 2021-11-13 10:49 | HMH.OTEV ---
OT Inpatient Evaluation Rehab OT IP Evaluation Start: 11/13/21 10:02 Freq: ONCE Status: Complete Protocol: Document 11/13/21 10:40 [facility] (Rec: 11/13/21 10:49 [facility] [id number]) Rehab OT IP Assessment Subjective History Pt oriented x 3 on arrival. Pt agreeable to engage in therapy evaluation. Pt admitted on 11/12/21 due to right leg swelling/cellulitis. Prior to being in the hosptial she lived at home with her . Pt claims she was independent with ADLs such as dressing, feeding, and bathing. She normally only completed sponge baths. However, she was dependent upon to complete all IADLs. She did use a walker during ambulation. Subjective I have been falling a lot lately. Pt resting in chair on arrival . Pt completed two sit to stands from chair with mod assist. Pt was left sitting in chair with call leos and all other needs in reach. Objective Patient Orientation Person,Place,Birthday Upper Extremity Gross ROM Min Limitation <25% Shoulder ROM Limitations Muscle Weakness Elbow ROM Limitations Muscle Weakness Wrist Limitations of Range of Motion Muscle Weakness Transfer Training Sit/Stand Transfer Assist Level Moderate x 1 (50% assist) Rehab OT IP prob,goals,plan Problems Date of Evaluation: 11/13/21 OT IP Problems Bed Mobility,Transfers,Gait, Balance,Self care,Safety Rehab Potential Rehab Potential Good Equipment Needs Assistive Devices Rolling / Wheeled Walker Plan OT intervention Plan Bed Mobility,Transfers,Gait, Balance,Self care,Safety, Therapeutic Exercise OT Plan Frequency BID Duration LOS Discharge Goals Bed Mobility Ability Assistance x1 Sit to Stand Chair Transfer Ability Minimal x 1 (25% assist) Chair Transfer Ability Minimal x 1 (25% assist) Chair Transfer Technique Sit to/from Ambulatory Chair Transfer Assistive Devices Rolling Walker Feeding Ability Assist with Tray Set Up Lower Body Dressing Abilit
--- NOTE | 2021-11-13 12:37 | PC.NURSE ---
1115-rounded on patient at this time. pt is up to chair watching tv. reviewed medications/plan of care. pt has no questions at this time. pt states she is having some pain. instructed pt to ring call leos if any questions/concerns/needs arise. Maycol RN was taking abx to room at this time, informed her patient had complaint of pain, pain medication was taken to patient at this time.
[2021-11-13 15:49] VITALS: BMI 42.7
[2021-11-13 16:00] VITALS: BP 147/68; PULSE 77; RESP 18; TEMP 36.6; O2SAT 93
[2021-11-13 20:00] VITALS: BP 170/72; PULSE 76; RESP 17; TEMP 36.9; O2SAT 92
[2021-11-14 03:44] VITALS: BP 140/59; PULSE 67; RESP 18; TEMP 36.8; O2SAT 98
--- NOTE | 2021-11-14 04:32 | PC.NURSE ---
Pt lying in bed. Pt requested a pain pill x1. voiced that it was effective and went to sleep shortly after that. Pt leg remains in woodrow boot. Toes are warm to touch and pedal pulses are good. Pt voiced that her leg is feeling better today.
[2021-11-14 04:52] VITALS: BMI 43.0
[2021-11-14 07:39] VITALS: BP 125/83; PULSE 69; RESP 16; TEMP 37.3; O2SAT 99
--- NOTE | 2021-11-14 08:39 | HMH.DCSUM ---
General - General Admission date:: 11/12/21 Discharge date: 11/14/21 HPI HPI: 71 year old female with extensive past medical history including chronic infection of spinal hardware, morbid obesity, chronic pain, lymphedema and chronic lung disease seen today in clinic with complaints of erythema, blisters and pain in her right lower leg. This has been intermittently problematic over the past 6 months and has recurred despite outpatient antibiotics, home compression pump, attempts to reposition and oral diuresis. She is spending all of her time in a hospital bed but hangs the right leg out despite urging from her and positioning devices to help keep that leg in the bed and elevated. She has fallen twice over the past couple of weeks while trying to pivot to her bedside commode and after her most recent fall hasn't been able to bear full weight on the right leg. Fire department had to come help her get her out of the house today. On exam she was noted to have marked edema of the right lower leg, weeping, erythema and warmth and was admitted for IV diuresis, antibiotics and diagnostics as well as consideration for placement in subacute rehabilitation facility. Hospital Course Hospital Course: Patient was admitted, placed on broad-spectrum antibiotics. Fortunately blood cultures were negative. Ultrasound of leg was also negative for clot. Physical therapy wrapped the leg with an Unna boot which seemed to help dramatically with swelling. Patient was evaluated by physical therapy who felt that she would do well with skilled care for PT and OT and ongoing evaluation for lymphedema and her cellulitis. Patient was accepted at [facility] in [place]. She will be transferred there today. She will need clindamycin 300 mg 3 times daily for the next 7 days for the erysipelas/cellulitis. Need PT/OT evaluation for lymphedema, gait training and overall increase mobilization. Medications will be as noted in the transfer summary. Please note I have sent a prescription electronically to the [facility] pharmacy for her controlled substances. Objective Vital signs: Temp Pulse Resp BP Pulse Ox 99.1 F 69 16 125/83 99 11/14/21 07:39 11/14/21 07:39 11/14/21 07:39 11/14/21 07:39 11/14/21 07:39 no acute distress, morbidly obese - *Routine HEENT Exam Head: Present: normocephalic Eye: Present: EOMI, PERRL ENT: Present: mucous membranes moist - *Routine Neck Exam Present: supple - *Routine Respiratory Exam Present: CTA bilaterally - *Routine Cardiovascular Exam Present: RRR - *Routine Abdominal Exam Present: soft, normoactive bowel sounds. Absent: tenderness - *Routine Extremities Exam Absent: cyanosis, clubbing, edema Comments: Right leg wrapped in Unna boot. Distal toes are less swollen. Left leg is not swollen. - *Routine Skin Exam Present: warm. Absent: rash - *Routine Neurological Exam Present: alert, CN II-XII intact Significant weakness in lower extremities. - Detailed Eye Exam Eyelids: Bilateral normal inspection DS: Diagnosis - Discharge Diagnosis (1) Cellulitis of right lower extremity Status: Acute (2) Lymphedema Status: Chronic (3) Physical debility Status: Chronic (4) Peripheral edema Status: Acute (5) Falls frequently Status: Chronic (6) Hyponatremia Status: Chronic (7) Morbid obesity Status: Chronic (8) Right knee pain Status: Acute (9) Right ankle pain Status: Acute (10) Obesity, Class III, BMI 40-49.9 (morbid obesity) Status: Chronic Discharge Plan - Patient Discharge Instructions ACTIVITY: Limited activity, Up with assistance DIET: continue same diet Patient Instructions: DI for Cellulitis -- Adult, DI for Hyponatremia, How to Prevent Falls, DI for Lymphedema, DI for Peripheral Edema-Unilateral - Follow up Plan Disposition: [facility] Condition at discharge:: Improved Home Medicati
[2021-11-14 10:19] LABS: Coronavirus 19, PCR Not Detected (NotDetected); Influenza A, PCR Not Detected (NotDetected); Influenza B, PCR Not Detected (NotDetected)
--- NOTE | 2021-11-14 15:28 | PC.NURSE ---
assisted primary nurse with transferring patient in to vehicle.
--- NOTE | 2021-11-14 15:54 | PC.NURSE ---
Multiple attempts to call report to [facility] @ 1300, [phone], and spoke w/ Roddy @ 1425. Pt d/cd @ 9154 w/ to transport to [facility].
--- NOTE | 2021-11-15 11:31 | CARE MANAGER ---
Contacted [facility] related to hospital discharge. They state patient is settling in well and denies any questions or concerns at this time. JON Hoyt
== END 2021-11-14 14:55 ==
PROVIDERS: Nurse Practitioner Family; Admitting Provider Internal Medicine Adolescent Medicine; PCP Internal Medicine Adolescent Medicine; Visit Provider Internal Medicine Adolescent Medicine
DX: L03.115 Cellulitis of right lower limb (principal); R29.6 Repeated falls; I89.0 Lymphedema, not elsewhere classified; M25.561 Pain in right knee; M25.571 Pain in right ankle and joints of right foot; E66.01 Morbid (severe) obesity due to excess calories; Z68.42 Body mass index [BMI] 45.0-49.9, adult; Z79.899 Other long term (current) drug therapy; Z88.8 Allergy status to other drugs, medicaments and biological substances; J44.9 Chronic obstructive pulmonary disease, unspecified; E87.1 Hypo-osmolality and hyponatremia; Z20.822 Contact with and (suspected) exposure to COVID-19
CPT/HCPCS: G0378; G0379; 36415; 73560; 73600; 80048; 83605; 83735; 85025; 87040; 93971; 97162; 97166; 97530; C9803; J3370; U0003; U0005

== ENCOUNTER 2024-07-02 08:44 | Outpatient (CLI) | payer MEDICARE, SELFPAY ==
[2024-07-02 08:58] LABS: Microscopic, Urine URINE MICROSCOPIC (MICROSCOPIC)
--- NOTE | 2024-07-02 09:15 | XR_ITS ---
FINAL REPORT CLINICAL HISTORY: SCREENING COMPARISON: 09/19/2020 FINDINGS: Using the left forearm, the bone mineral density of 1/3 is 0.506 g/cm2, corresponding to T-score of -3.1 which is consistent with osteoporosis. Previously this was 0.534 with a T-score of -2.7. Using the left hip, the bone mineral density of the femoral neck is 0.625 g/cm2, corresponding to a T-score of -2.0 which is consistent with osteopenia. Previously this was 0.609 with a T-score of -2.2. Using the right hip, the bone mineral density of the femoral neck is 0.631 g/cm2, corresponding to a T-score of -2.0 which is consistent with osteopenia. Previously this was 0.579 with a T-score of -2.4. FRAX score is not reported because the patient is being treated for osteoporosis. NOTE: T-score: Standard deviation compared with peak bone mass of young adult mean. *Following the recommendations of the International Society of Bone densitometry, classification of hip BMD is based on the lower of two T-scores; total hip or femoral neck. IMPRESSION: Diminished bone mineral density consistent with osteoporosis in the left forearm and osteopenia in the bilateral hips. Reviewed, Interpreted and Dictated by Carmen Zhang MD Transcribed by Amy Iverson Authenticated and [facility]
[2024-07-02 10:02] LABS: Hematocrit 38.6 % (37.0-47.0); Mean Corpuscular HGB Conc 33.7 g/dL (31.8-35.4); Mean Corpuscular Hemoglobin 32.5 pg (27.0-31.2); Mean Corpuscular Volume 96.5 fl (81-99); Platelet Count 159 K/mm3 (142-424); Red Cell Distribution Width 12.5 % (11.5-17.5); White Blood Count 6.8 K/mm3 (4.8-10.8)
[2024-07-02 10:09] LABS: Appearance,Urine CLEAR (Clear); Bilirubin,Urine Negative (Negative); Blood, Urine Negative (Negative); Color,Urine YELLOW (Yellow); Glucose,Urine (UA) Negative (Negative); Ketones,Urine Negative (Negative); Leukocyte Esterase,Urine 1+ (Negative); Nitrate,Urine Negative (Negative); Protein,Urine Negative (Negative); Specific Gravity, Urine 1.025 (1.005-1.030); Urobilinogen,Urine 0.2 EU/dl (0.2)
[2024-07-02 10:27] LABS: Albumin Level 4.1 g/dl (3.5-5.0); Anion Gap 17.7 mEq/L (5-15); Blood Urea Nitrogen 12 mg/dl (7-17); Calcium 9.5 mg/dl (8.4-10.2); Carbon Dioxide 24 mmol/L (22.0-30.0); Chloride 101 mmol/L (98-107); Estimated Glomerular Filt Rate 81 ml/min (>60); GFR (African American) 98 ML/MIN (>60); Glucose 90 mg/dl (74-100); Phosphorous 3.4 mg/dl (2.5-4.5); Potassium 4.7 mmoL/L (3.5-5.1); Sodium 138 mmol/L (136-145)
[2024-07-02 10:29] LABS: Creatinine,Urine Random 95 mg/dL (Not Estab.)
[2024-07-02 10:39] LABS: Intact Parathyroid Hormone 52.5 pg/mL (7.5-53.5)
[2024-07-02 10:45] LABS: 25-OH Vitamin D, Total 51.9 ng/mL (30-100)
[2024-07-02 10:52] LABS: Bacteria,Urine Trace /lpf
[2024-07-05 17:26] LABS: Osteocalcin 9.3 ng/mL (5.0-29.5)
[2024-07-06 13:53] LABS: Tandem-R Ostase 33.6 ug/L (.)
[2024-07-07 17:10] LABS: C-Telopeptide Serum 268 pg/mL (.)
[2024-07-09 10:30] LABS: Serial Monitoring PDF SCANNED IMAGE
== END 2024-07-02 23:59 | disposition home or self-care (01) ==
LOC: RAD 08:45
PROVIDERS: PCP Internal Medicine Adolescent Medicine; Visit Provider Nurse Practitioner
DX: M81.0 Age-related osteoporosis without current pathological fracture (principal); N18.30 Chronic kidney disease, stage 3 unspecified
CPT/HCPCS: 36415; 77080; 80069; 81001; 82306; 82523; 82570; 83937; 83970; 84080; 84156; 85027; 87086

== ENCOUNTER 2024-11-04 08:55 | Outpatient (CLI) | payer MEDICARE, SELFPAY ==
--- NOTE | 2024-11-04 08:59 | XR_ITS ---
FINAL REPORT CLINICAL HISTORY: Left Shoulder pain rotator cuff repair a few yrs ago FINDINGS: LEFT SHOULDER Three views were obtained. There is no fracture or dislocation. There are mild hypertrophic changes at the acromioclavicular and glenohumeral joints. No soft tissue abnormality is identified. IMPRESSION: Mild degenerative changes. Reviewed, Interpreted and Dictated by Raul Hernandez MD Transcribed by Elvia Mobley Authenticated and [facility]
--- NOTE | 2024-11-04 08:59 | XR_ITS ---
FINAL REPORT CLINICAL HISTORY: Right knee Pain COMPARISON: 10/23/2021 FINDINGS: RIGHT KNEE Three views were obtained. There is no fracture or dislocation. There is advanced medial compartment joint space narrowing and subchondral sclerosis. Moderate osteophyte formation is seen at the medial joint margin. There are mild hypertrophic changes along the undersurface of the patella. No soft tissue abnormality is identified. IMPRESSION: Moderately advanced hypertrophic changes of osteoarthritis of the medial compartment joint space. Reviewed, Interpreted and Dictated by Raul Hernandez MD Transcribed by Elvia Mobley Authenticated and [facility]
--- OUTSIDE RECORDS SUMMARY | 2024-11-04 08:59 | XMS_ITS | Encounter Summary ---
Author Organization [email or web address] Address [address] [place] [id number] Care Team Providers Care Cracking Still Operator Name Role Phone Unavailable Primary Care Provider Unavailabl e Encounter Details Date Type Department Care Team (Late st Contact Info) Description 12/21/2021 Transcribed Document [facility] Family Medicine Formerly [facility] [place] [address] ProviderBird MD [address] [place] [address] Social History Tobacco Use Types Packs/Day Years Used Date Smoking Tobacco: Never Assessed Comments Unknown Sex and Gender Information Value Date Recorded Sex Assigned at Not on file Legal Sex Female 2:53 PM CDT Gender Identity Not on file Sexual Orientation Not on file documented as of this encounter Miscellaneous Notes * Cerner Conversion Note - Bird Schilling MD - 12/21/2021 2:04 PM CDT ED Triage Entered On: 12/21/2021 14:26 EDT Performed On: 12/21/2021 14:23 EDT by Allyson Ko RN ED Triage Across the Room Chief Complaint : Pt arrived via ems from home c/o R knee and R lower extremity pain and skin tear s/p fall. Triage Date/Time : 12/21/2021 14:23 EDT Allyson Ko RN - 12/21/2021 14:23 EDT DCP GENERIC CODE Tracking Acuity : 4 - Non - Urgent Tracking Group : [facility] ED [facility] Allyson Ko RN - 12/21/2021 14:23 EDT Mode of Arrival : Ambulatory Transported to ED by : Ambulance/ALS EMS Service : [facility] To Room Via : Stretcher Accompanied By : Unaccompanied ED Vital Signs : Document Height & Weight : Document ED Allergies : Document ED Reason for Visit : Document Tetanus Immunization : Less than 5 years Allyson Ko RN - 12/21/2021 14:23 EDT Infectious Disease History Does patient have symptoms of COVID-19? : No Tested for COVID19 in the past 14 days : No, Patient stated Does the Patient state known exposure to a COVID-19 positive case in the last 14 days? : No Patient Vaccinated for COVID-19 : Fully vaccinated Allyson Ko RN - 12/21/2021 14:23 EDT Infectious Disease Risk Screening Grid Cough < 2 wks of unknown origin : NO Cough > 2 weeks : NO Blood in Sputum : NO Fever or self-reported Fever : NO Rash of unknown origin : NO Headache : NO Stiff neck : NO Night Sweats : NO Unexplained Weight Loss : NO Diarrhea (3 episode per day) : NO Allyson Ko RN - 12/21/2021 14:23 EDT Physical contact outside [place] in the last 30 days : No Hospitalized in [place] : No Infectious Disease History : None, C-Difficile, Hepatitis Non A, B, C, Meningitis, MRSA, Mumps, Other: E-coli and Salmonella in her back INF Disease TB Screening Calc : 0 INF Disease Recent Travel Calc : 0 Allyson Ko RN - 12/21/2021 14:23 EDT Vital Signs ED Temperature Source : Oral Temperature Mode : Fahrenheit Temperature, Fahrenheit : 98.4 Deg F Clinical Temperature, C : 36.9 Deg C Oxygen Therapy Mode : Room air Peripheral Pulse Rate : 62 bpm Respiratory Rate : 26 Breaths/Min (HI) Systolic Blood Pressure : 152 mmHg (HI) Diastolic Blood Pressure : 106 mmHg (HI) Oxygen Saturation : 94 % Allyson Ko RN - 12/21/2021 14:23 EDT Allergy (As Of: 12/21/2021 14:26:21 EDT) Allergies (Active) Macrobid Estimated Onset Date: Unspecified ; Reactions: Itching ; Created By: WESLEY GUTIERREZ RN; Reaction Status: Active ; Category: Drug ; Substance: Macrobid ; Type: Allergy ; Updated By: WESLEY GUTIERREZ RN; Reviewed Date: 12/21/2021 14:24 EDT Tape Estimated Onset Date: Unspecified ; Reactions: Rash, Blisters ; Created By: CALSO FERGUSON; Reaction Status: Active ; Category: Other ; Substance: Tape ; Type: Allergy ; Updated By: CALOS FERGUSON; Reviewed Date: 12/21/2021 14:24 EDT Diagnosis Control ED (As Of: 12/21/2021 14:26:21 EDT) Problems(Active) Accidental fall (SNOMED CT :806671695 ) Name of Problem: Accidental fall ; Recorder: CALOS FERGUSON; Confirmation: Confirmed ; Classification: Medical ; Code: [id number] ; Contributor System: PowerChart ; Last Updated: 11/02/2013 11:43 EDT ; Life Cycle Date: 11/02/2013 ; Life Cycle Status: Active ; Vocabulary: SNOMED CT ; Comments: 11/02/2013 11:43 - CALOS FERGUSON FELL 10-29-13 INJURED LOW BACK HIPS Allergic rhinitis (SNOMED CT :676370260 ) Name of Problem: Allergic rhinitis ; Recorder: MICHAELA MIRANDA RN; Confirmation: Confirmed ; Classification: Medical ; Code: [id number] ; Contributor System: PowerChart ; Last Updated: 10/28/2013 19:26 EDT ; Life Cycle Date: 06/07/2013 ; Life Cycle Status: Active ; Vocabulary: SNOMED CT Anemia (SNOMED CT :130107975 ) Name of Problem: Anemia ; Recorder: MICHAELA MIRANDA RN; Confirmation: Confirmed ; Classification: Medical ; Code: 356774998 ; Contributor System: PowerChart ; Last Updated: 10/28/2013 19:26 EDT ; Life Cycle Date: 06/07/2013 ; Life Cycle Status: Active ; Vocabulary: SNOMED CT Arthritis (SNOMED CT :0607513 ) Name of Problem: Arthritis ; Recorder: MICHAELA MIRANDA RN; Confirmation: Confirmed ; Classification: Medical ; Code: [id number] ; Contributor System: PowerChart ; Last Updated: 10/28/2013 19:26 EDT ; Life Cycle Date: 06/07/2013 ; Life Cycle Status: Active ; Vocabulary: SNOMED CT Autoimmune Hepatitis (SNOMED CT :5939329027 ) Name of Problem: Autoimmune Hepatitis ; Recorder: MICHAELA MIRANDA RN; Confirmation: Confirmed ; Classification: Medical ; Code: [id number] ; Contributor System: PowerChart ; Last Updated: 11/05/2013 10:09 EDT ; Life Cycle Date: 06/07/2013 ; Life Cycle Status: Active ; Vocabulary: SNOMED CT Back pain (PNED :[id number] ) Name of Problem: Back pain ; Recorder: MICHAELA MIRANDA RN; Confirmation: Confirmed ; Classification: Medical ; Code: [id number] ; Contributor System: PowerChart ; Last Updated: 11/01/2013 9:11 EDT ; Life Cycle Date: 06/07/2013 ; Life Cycle Status: Active ; Vocabulary: PNED Bruise (SNOMED CT :464263377 ) Name of Problem: Bruise ; Recorder: CALOS FERGUSON; Confirmation: Confirmed ; Classification: Medical ; Code: 048764420 ; Contributor System: PowerChart ; Last Updated: 11/02/2013 12:33 EDT ; Life Cycle Date: 11/02/2013 ; Life Cycle Status: Active ; Vocabulary: SNOMED CT ; Comments: 11/02/2013 12:33 - CALOS FERGUSON left cheek from dental work Cataract (Patient Care : ) Name of Problem: Cataract ; Recorder: MICHAELA MIRANDA RN; Confirmation: Confirmed ; Classification: Medical ; Contributor System: PowerChart ; Last Updated: 11/01/2013 9:11 EDT ; Life Cycle Date: 06/07/2013 ; Life Cycle Status: Active ; Vocabulary: Patient Care Celiac disease (SNOMED CT :7174028231 ) Name of Problem: Celiac disease ; Recorder: MICHAELA MIRANDA RN; Confirmation: Confirmed ; Classification: Medical ; Code: [id number] ; Contributor System: PowerChart ; Last Updated: 10/28/2013 19:26 EDT ; Life Cycle Date: 06/07/2013 ; Life Cycle Status: Active ; Vocabulary: SNOMED CT Chest pain (SNOMED CT :67066943 ) Name of Problem: Chest pain ; Recorder: CALOS FEGRUSON; Confirmation: Confirmed ; Classification: Medical ; Code: 03398265 ; Contributor System: PowerChart ; Last Updated: 11/02/2013 12:58 EDT ; Life Cycle Date: 11/02/2013 ; Life Cycle Status: Active ; Vocabulary: SNOMED CT ; Comments: 11/02/2013 12:59 - CALOS FERGUSON told due to lung problem weekly Chronic diarrhea (SNOMED CT :460089049 ) Name of Problem: Chronic diarrhea ; Recorder: ELENA MORFIN RN; Confirmation: Confirmed ; Classification: Medical ; Code: 020708765 ; Contributor System: ElcoChart ; Last Updated: 11/01/2013 8:34 EDT ; Life Cycle Date: 08/16/2013 ; Life Cycle Status: Active ; Vocabulary: SNOMED CT Deep vein thrombosis (SNOMED CT :494419267 ) Name of Problem: Deep vein thrombosis ; Recorder: ELENA MORFIN RN; Confirmation: Confirmed ; Classification: Medical ; Code: 932985939 ; Contributor System: PowerChart ; Last Updated: 11/04/2013 16:51 EDT ; Life Cycle Date: 08/16/2013 ; Life Cycle Status: Active ; Vocabulary: SNOMED CT ; Comments: 08/16/2013 13:20 - ELENA MORFIN RN left leg GERD - Gastro-esophageal reflux disease (SNOMED CT :7069701599 ) Name of Problem: GERD - Gastro-esophageal reflux disease ; Recorder: MICHAELA MIRANDA RN; Confirmation: Confirmed ; Classification: Medical ; Code: 8319860334 ; Contributor System: PowerChart ; Last Updated: 11/01/2013 9:09 EDT ; Life Cycle Date: 06/07/2013 ; Life Cycle Status: Active ; Vocabulary: SNOMED CT Glaucoma (Patient Care : ) Name of Problem: Glaucoma ; Recorder: MICHAELA MIRANDA RN; Confirmation: Confirmed ; Classification: Medical ; Contributor System: PowerChart ; Last Updated: 11/01/2013 9:19 EDT ; Life Cycle Date: 06/07/2013 ; Life Cycle Status: Active ; Vocabulary: Patient Care Hemorrhoids (SNOMED CT :950188351 ) Name of Problem: Hemorrhoids ; Recorder: MICHAELA MIRANDA RN; Confirmation: Confirmed ; Classification: Medical ; Code: 672903923 ; Contributor System: PowerChart ; Last Updated: 10/28/2013 19:26 EDT ; Life Cycle Date: 06/07/2013 ; Life Cycle Status: Active ; Vocabulary: SNOMED CT Hepatitis (SNOMED CT :710134966 ) Name of Problem: Hepatitis ; Recorder: MICHAELA MIRANDA RN; Confirmation: Confirmed ; Classification: Medical ; Code: 252643844 ; Contributor System: PowerChart ; Last Updated: 10/28/2013 19:26 EDT ; Life Cycle Date: 06/07/2013 ; Life Cycle Status: Active ; Vocabulary: SNOMED CT ; Comments: 06/07/2013 11:39 - MICHAELA MIRANDA RN autoimmune hepatitis Hepatitis (SNOMED CT :325429180 ) Name of Problem: Hepatitis ; Recorder: ELENA MORFIN RN; Confirmation: Confirmed ; Classification: Medical ; Code: 119728750 ; Contributor System: PowerChart ; Last Updated: 11/01/2013 13:34 EDT ; Life Cycle Date: 08/16/2013 ; Life Cycle Status: Active ; Vocabulary: SNOMED CT ; Comments: 08/16/2013 13:23 - ELENA MORFIN RN auto immune hepatitis Hiatal hernia (SNOMED CT :741931047 ) Name of Problem: Hiatal hernia ; Recorder: ELENA MORFIN RN; Confirmation: Confirmed ; Classification: Medical ; Code: 507912509 ; Contributor System: PowerChart ; Last Updated: 11/01/2013 8:28 EDT ; Life Cycle Date: 08/16/2013 ; Life Cycle Status: Active ; Vocabulary: SNOMED CT High blood pressure (SNOMED CT :72057638 ) Name of Problem: High blood pressure ; Recorder: MICHAELA MIRANDA RN; Confirmation: Confirmed ; Classification: Medical ; Code: 22548012 ; Contributor System: PowerChart ; Last Updated: 10/28/2013 19:26 EDT ; Life Cycle Date: 06/07/2013 ; Life Cycle Status: Active ; Vocabulary: SNOMED CT history of ulcers in intestine (SNOMED CT :213171003 ) Name of Problem: history of ulcers in intestine ; Onset Date: 05/17/2013 ; Recorder: MICHAELA MIRANDA RN; Confirmation: Confirmed ; Classification: Medical ; Code: 892072669 ; Contributor System: PowerChart ; Last Updated: 04/14/2019 14:13 EST ; Life Cycle Date: 06/07/2013 ; Life Cycle Status: Active ; Vocabulary: SNOMED CT Hyperlipidemia (SNOMED CT :07662379 ) Name of Problem: Hyperlipidemia ; Recorder: ELENA MORFIN RN; Confirmation: Confirmed ; Classification: Medical ; Code: 84953567 ; Contributor System: PowerChart ; Last Updated: 11/01/2013 8:27 EDT ; Life Cycle Date: 08/16/2013 ; Life Cycle Status: Active ; Vocabulary: SNOMED CT Impaired vision (SNOMED CT :02034142 ) Name of Problem: Impaired vision ; Recorder: MICHAELA MIRANDA RN; Confirmation: Confirmed ; Classification: Medical ; Code: 49742446 ; Contributor System: PowerChart ; Last Updated: 10/28/2013 19:26 EDT ; Life Cycle Date: 06/07/2013 ; Life Cycle Status: Active ; Vocabulary: SNOMED CT Incontinence (SNOMED CT :54322351 ) Name of Problem: Incontinence ; Recorder: ELENA MORFIN RN; Confirmation: Confirmed ; Classification: Medical ; Code: 43802847 ; Contributor System: PowerChart ; Last Updated: 11/02/2013 11:12 EDT ; Life Cycle Date: 08/16/2013 ; Life Cycle Status: Active ; Vocabulary: SNOMED CT On home oxygen therapy (SNOMED CT :0966683826 ) Name of Problem: On home oxygen therapy ; Recorder: CALOS FERGUSON; Confirmation: Confirmed ; Classification: Medical ; Code: 5521483584 ; Contributor System: ElcoChart ; Last Updated: 11/02/2013 12:32 EDT ; Life Cycle Date: 11/02/2013 ; Life Cycle Status: Active ; Vocabulary: SNOMED CT open lumbar wound with dressing intact. (SNOMED CT :06300163 ) Name of Problem: open lumbar wound with dressing intact. ; Recorder: ELENA MORFIN RN; Confirmation: Confirmed ; Classification: Medical ; Code: 11554598 ; Contributor System: PowerChart ; Last Updated: 04/14/2019 15:33 EST ; Life Cycle Date: 08/16/2013 ; Life Cycle Status: Active ; Vocabulary: SNOMED CT ; Comments: 08/16/2013 14:33 - ELENA MORFIN RN patient states she was culterecd with c-diff and MRSA positive 11/02/2013 11:30 - CALOS FERGUSON resolved Osteoporosis (SNOMED CT :673303330 ) Name of Problem: Osteoporosis ; Recorder: MICHAELA MIRANDA RN; Confirmation: Confirmed ; Classification: Medical ; Code: 083079431 ; Contributor System: PowerChart ; Last Updated: 10/28/2013 19:26 EDT ; Life Cycle Date: 06/07/2013 ; Life Cycle Status: Active ; Vocabulary: SNOMED CT Pneumonia (SNOMED CT :432238207 ) Name of Problem: Pneumonia ; Recorder: MICHAELA MIRANDA RN; Confirmation: Confirmed ; Classification: Medical ; Code: 863995980 ; Contributor System: ElcoChart ; Last Updated: 10/28/2013 19:26 EDT ; Life Cycle Date: 06/07/2013 ; Life Cycle Status: Active ; Vocabulary: SNOMED CT pulmonary fibrosis (SNOMED CT :10632584 ) Name of Problem: pulmonary fibrosis ; Onset Date: 08/16/2006 ; Recorder: ELENA MORFIN RN; Confirmation: Confirmed ; Classification: Medical ; Code: 32788995 ; Contributor System: [employer] ; Last Updated: 11/04/2013 16:51 EDT ; Life Cycle Date: 08/16/2013 ; Life Cycle Status: Active ; Vocabulary: SNOMED CT Pulmonary fibrosis (SNOMED CT :43028470 ) Name of Problem: Pulmonary fibrosis ; Recorder: WESLEY GUTIERREZ RN; Confirmation: Confirmed ; Classification: Patient Stated ; Code: 41958362 ; Contributor System: [employer] ; Last Updated: 10/28/2013 19:26 EDT ; Life Cycle Date: 04/01/2013 ; Life Cycle Status: Active ; Vocabulary: SNOMED CT Syncope (SNOMED CT :573710053 ) Name of Problem: Syncope ; Recorder: MICHAELA MIRANDA RN; Confirmation: Confirmed ; Classification: Medical ; Code: 886652361 ; Contributor System: ElcoChart ; Last Updated: 10/28/2013 19:26 EDT ; Life Cycle Date: 06/07/2013 ; Life Cycle Status: Active ; Vocabulary: SNOMED CT Urinary tract infection (SNOMED CT :933951565 ) Name of Problem: Urinary tract infection ; Recorder: MICHAELA MIRANDA RN; Confirmation: Confirmed ; Classification: Medical ; Code: 419141080 ; Contributor System: [employer] ; Last Updated: 10/28/2013 19:26 EDT ; Life Cycle Date: 06/07/2013 ; Life Cycle Status: Active ; Vocabulary: SNOMED CT ; Comments: 06/07/2013 11:46 - MICHAELA MIRANDA RN recent history of indwelling catheter for 2 months Diagnoses(Active) Knee pain-swelling Date: 12/21/2021 ; Diagnosis Type: Reason For Visit ; Confirmation: Complaint of ; Clinical Dx: Knee pain-swelling ; Classification: Medical ; Clinical Service: Non-Specified ; Code: PNED ; Probability: 0 ; Diagnosis Code: [id number] Leg pain-swelling Date: 12/21/2021 ; Diagnosis Type: Reason For Visit ; Confirmation: Complaint of ; Clinical Dx: Leg pain-swelling ; Classification: Medical ; Clinical Service: Non-Specified ; Code: PNED ; Probability: 0 ; Diagnosis Code: [id number] ED Height and Weight Height Source : Measured Height Entry Format : Stout Height, Feet : 5 ft(Converted to: 152 cm, 60 Inch) Height, Inches : 8 Inch(Converted to: 0 ft 8 Inch, 20.32 cm) Clinical Height : 172.72 cm Weight Source, ED : Standing scale Weight Entry Format : Stout Weight, Pounds : 271 lb Clinical Dosing Weight : 123.18 kg Body Surface Area (BSA) : 2.33 m2 Body Mass Index : 41.3 kg/m2 (>HHI) [place] Body Weight (IBW) : 63.45 kg Allyson Ko RN - 12/21/2021 14:23 EDT documented in this encounter Plan of Treatment Not on file documented as of this encounter Visit Diagnoses Not on filedocumented in this encounter
--- OUTSIDE RECORDS SUMMARY | 2024-11-04 08:59 | XMS_ITS | Encounter Summary ---
Author Organization Healthcare Address [address] [place] [address] Care Team Providers Care Streetcar Starter Name Role Phone Elodia Quijano APRN Primary Care Provider [phone]- [phone] Encounter Details Date Type Department Care Team (Late st Contact Info) Description 01/29/2022 [facility] [address] [place] [address] Elodia Quijano APRN [address] [address] Chronic infection of bone (CMS/HCC) (Primary Dx) Social History Tobacco Use Types Packs/Day Years Used Date Smoking Tobacco: Never Alcohol Use Standard Drinks/Week Comments No 0 (1 standard drink = 0.6 oz pur e alcohol) Comments Unknown Sex and Gender Information Value Date Recorded Sex Assigned at Not on file Legal Sex Female 7:33 PM EDT Gender Identity Not on file Sexual Orientation Not on file documented as of this encounter Plan of Treatment Not on file documented as of this encounter Visit Diagnoses Diagnosis Chronic infection of bone (CMS/HCC)- Primary documented in this encounter Care Teams Streetcar Starter Relationship Specialty Start Date End Date Elodia Quijano APRN [address] [address] PCP - General 09/29/20 documented as of this encounter
--- OUTSIDE RECORDS SUMMARY | 2024-11-04 08:59 | XMS_ITS ---
Author Organization [facility] Care Team Providers Care Equipment Planner Name Role Phone Allyson Quijano) Unavailable Unavail able Federico Gomes Unavailable Unavailable Allergies and adverse reactions Code CodeSystem Substance Reaction Severity StartDate Concern Status 7454 RXNORM Nitrofurantoin Skin reaction - finding (code- 681588405, SNOMED CT) Moderate 10/21/2018 active Gluten Unknown 10/21/2018 active 4053 RXNORM Erythromycin Skin reaction - finding (code- 937117728, SNOMED CT) Mild 10/21/2018 active Care Team Name Role Address Phone Organization Dates Federico Gomes PCP [address], [place], [address], [place] (Office): [facility] 10/21/2018 - 11/10/2018 Allyson Kidd) [place], [address], [place] (Office): : [facility] 10/21/2018 - 11/10/2018 Immunizations Immunization Status Vaccine Details Vaccine Code CodeSystem Date Notes Influenza completed Influenza, high-dose, split virus, quadrivalent, injectable, preservative free 197 CVX created date: 10/27/2018 consent date: 10/27/2018 administer ed date: 02/19/2018 TB 1 Step Mantoux (PPD) completed tuberculin skin test; unspecified formulation expiry: 11/14/2018 Given 0.1 ml Right Forearm intradermally 98 CVX created date: 10/22/2018 consent date: 10/22/2018 administer ed date: 10/22/2018 TB 2 Step Mantoux Skin Test completed tuberculin skin test; unspecified formulation lotNumber: [id number] expiry: 10/07/2020 Mfg: sanofi pasteur Given 0.1 ml Left Forearm intradermally Step 1 of Multi-step 98 CVX created date: 10/29/2018 consent date: 10/29/2018 administer ed date: 10/29/2018 Educated by Jayda Mendes LPN on 10/29/2018 Prevnar 13 completed created date: 10/27/2018 consent date: 10/27/2018 administer ed date: 02/16/2014 Prevnar 23 completed created date: 10/27/2018 administer ed date: 02/20/2017 Mental Status Section Date Assessment Total Score Description 11/10/2018 BIMS 15 cognitively int act CAM 0 No delirium ind icated PHQ-9 02 minimal depress ion 10/28/2018 BIMS 14 cognitively int act CAM 0 No delirium ind icated PHQ-9 06 mild depression Problems Problem # Description Date of onset Resolved Date Code CodeSystem Concern Status 1 PULMONARY FIBROSIS, UNSPECIFIED 10/27/[address] active 2 ACUTE ANGLE-CLOSURE GLAUCOMA, UNSPECIFIED EYE 10/23/[address] active 3 ACUTE PAIN DUE TO TRAUMA 10/23/[address] active 4 AGE-RELATED OSTEOPOROSIS WITHOUT CURRENT PATHOLOGICAL FRACTURE 10/23/[address] active 5 AUTOIMMUNE HEPATITIS 10/23/[address] active 6 CALCULUS OF GALLBLADDER WITHOUT CHOLECYSTITIS WITHOUT OBSTRUCTION 10/23/[address] active 7 CELIAC DISEASE 10/23/[address] ac tive 8 CHRONIC PULMONARY EDEMA 10/23/[address] active 9 EDEMA, UNSPECIFIED 10/23/[address] SN[address] C T active 10 ESSENTIAL (PRIMARY) HYPERTENSION 10/23/[address] active 11 GASTRO-ESOPHAGEAL REFLUX DISEASE WITHOUT ESOPHAGITIS 10/23/[address] active 12 GENERALIZED ANXIETY DISORDER 10/23/[address] active 13 HYPERLIPIDEMIA, UNSPECIFIED 10/23/[address] active 14 IDIOPATHIC PULMONARY FIBROSIS 10/23/[address] active 15 INSOMNIA DUE TO MEDICAL CONDITION 10/23/[address] active 16 MILD PERSISTENT ASTHMA 10/23/[address] active 17 NEURALGIA AND NEURITIS, UNSPECIFIED 10/23/[address] active 18 OTHER SPECIFIED DISORDERS OF BONE DENSITY AND STRUCTURE, UNSPECIFIED SITE 10/23/[address] active 19 SCIATICA, UNSPECIFIED SIDE 10/23/[address] active 20 UNSPECIFIED COMBINED SYSTOLIC (CONGESTIVE) AND DIASTOLIC (CONGESTIVE) HEART FAILURE 10/23/[address] active 21 DIFFICULTY IN WALKING, NOT ELSEWHERE CLASSIFIED 10/22/[address] active 22 HISTORY OF FALLING 10/21/[address] active 23 HYPO-OSMOLALITY AND HYPONATREMIA 10/21/[address] active 24 HYPOTHYROIDISM, UNSPECIFIED 10/21/[address] active 25 MORBID (SEVERE) OBESITY DUE TO EXCESS CALORIES 10/21/[address] active 26 MUSCLE WEAKNESS (GENERALIZED) 10/21/[address] active 27 OTHER ABNORMALITIES OF GAIT AND MOBILITY 10/21/[address] [employer] [facility] active 28 RHABDOMYOLYSIS 10/21/[address] [employer] [address] ac tive 29 ZOSTER WITHOUT COMPLICATIONS 10/21/[address] [employer] [facility] active Reason for Referral No Reasons for Referral Entered Social History Social History Observation Description Start Date End Date Code Code System Current Smoking Status Tobacco smoking consumption unknown 053919887 [employer] [facility] Sex Assigned At Female 1950 25276-2 [facility] Gender Identity Vital Signs Code Code System Vitals Name Values and Units Timing Information 53899-9 [facility] Weight Ajmvm=357.8 Units=Lbs 9279-1 [facility] Respiratory Rate Value=18.0 Units=/m in 11/10/2018 8462-4 [facility] Blood Pressure-Diastolic Value=68 Un its=mmHg 11/10/2018 8480-6 [facility] Blood Pressure-Systolic Lhdpw=788 Un its=mmHg 11/10/2018 8310-5 [facility] Body Temperature Value=97.6 Units= F 11/10/2018 8867-4 [facility] Heart rate Value=66.0 Units=/min 92778-5 [facility] O2 % BldC Oximetry Value=92.0 Units= % 11/10/2018 68481-8 [facility] Pain Level Value=0.0 11/10/2018 8302-2 [facility] Height Value=69.0 Units=Inches 10/23/2018
--- OUTSIDE RECORDS SUMMARY | 2024-11-04 08:59 | XMS_ITS | Encounter Summary ---
Author Organization [employer] Address [address] [place] [address] Care Team Providers Care Mine Inspector Federal Name Role Phone Unavailable Primary Care Provider Unavailabl e Encounter Details Date Type Department Care Team (Late st Contact Info) Description 12/21/2021 Transcribed Document [facility] [place] [address] [place] [address] ProviderBird MD [address] [place] [address] Social History Tobacco Use Types Packs/Day Years Used Date Smoking Tobacco: Never Assessed Comments Unknown Sex and Gender Information Value Date Recorded Sex Assigned at Not on file Legal Sex Female 2:53 PM CDT Gender Identity Not on file Sexual Orientation Not on file documented as of this encounter Miscellaneous Notes * [employer] Conversion Note - Bird ProviderMD - 12/21/2021 2:04 PM CDT [place] Violence Assessment Entered On: 12/21/2021 16:45 EDT Performed On: 12/21/2021 16:45 EDT by Hillary Zazueta RN Broset Violence Assessment Broset Violence Checklist of Symptoms : None Broset Violence Symptoms Subtotal : 0 Broset Violence Symptoms Indicator : Low risk (0) Hillary Zazueta RN - 12/21/2021 16:45 EDT documented in this encounter Plan of Treatment Not on file documented as of this encounter Visit Diagnoses Not on filedocumented in this encounter
--- OUTSIDE RECORDS SUMMARY | 2024-11-04 08:59 | XMS_ITS | Encounter Summary ---
Author Organization [employer] Address [address] [place], [place] [id number] Care Team Providers Care Deli Cutter Slicer Name Role Phone Unavailable Primary Care Provider Unavailabl e Encounter Details Date Type Department Care Team (Late st Contact Info) Description 12/21/2021 Transcribed Document [facility] [place] [address] [place] [address] ProviderBird MD [address] [place] [address] Social History Tobacco Use Types Packs/Day Years Used Date Smoking Tobacco: Never Assessed Comments Unknown Sex and Gender Information Value Date Recorded Sex Assigned at Not on file Legal Sex Female 2:53 PM CDT Gender Identity Not on file Sexual Orientation Not on file documented as of this encounter Miscellaneous Notes * [employer] Conversion Note - Bird ProviderMD - 12/21/2021 8:19 PM CDT Electronically signed by Anjelica [facility] Conversion Area Field Worker Cerner at 09/01/2022 7:39 PM CDT documented in this encounter Plan of Treatment Not on file documented as of this encounter Visit Diagnoses Not on filedocumented in this encounter
--- OUTSIDE RECORDS SUMMARY | 2024-11-04 08:59 | XMS_ITS | Encounter Summary ---
Author Organization [employer] Address [address] [place] [id number] Care Team Providers Care Director Of Patient Safety Name Role Phone Unavailable Primary Care Provider Unavailabl e Encounter Details Date Type Department Care Team (Late st Contact Info) Description 12/21/2021 Transcribed Document [facility] [place] [facility] [place] [address] ProviderBird MD [facility] [place] [address] Social History Tobacco Use Types Packs/Day Years Used Date Smoking Tobacco: Never Assessed Comments Unknown Sex and Gender Information Value Date Recorded Sex Assigned at Not on file Legal Sex Female 2:53 PM CDT Gender Identity Not on file Sexual Orientation Not on file documented as of this encounter Miscellaneous Notes * [employer] Conversion Note - Bird Schilling MD - 12/21/2021 4:48 PM CDT Pain Assessment Entered On: 12/21/2021 18:52 EDT Performed On: 12/21/2021 18:51 EDT by DESIREE OLIVEIRA RN-PATIENT CARE BEDSIDE NON-EXEMPT Intervention Information: acetaminophen Performed by Hilalry Zazueta RN on 12/21/2021 16:54:00 EDT acetaminophen,650mg Oral Pain Assessment Pain Assessment : Follow-up assessment Pain Scale Used : 0-10 Scale DESIREE OLIVEIRA RN-PATIENT CARE BEDSIDE NON-EXEMPT - 12/21/2021 18:51 EDT Pain Scale Intensity : 4 DESIREE OLIVEIRA RN-PATIENT CARE BEDSIDE NON-EXEMPT - 12/21/2021 18:51 EDT Image 4 - Images currently included in the form version of this document have not been included in the text rendition version of the form. documented in this encounter Plan of Treatment Not on file documented as of this encounter Visit Diagnoses Not on filedocumented in this encounter
--- OUTSIDE RECORDS SUMMARY | 2024-11-04 08:59 | XMS_ITS | Clinical Summary ---
Author Organization [facility] Address [address] [place] [phone] Phone Care Team Providers Care Media Theorist And Author Of Name Role Phone Luis Dotson MD [ ] Conditions or Problems Problem Name Problem Code Onset Date Status Entry Date Provider Comment Standard Description Annotate Cellulitis, lumbar 76475771 (SNOMED CT) 08/02 Active 08/02 Tanna Anderson Cellulitis of back, except buttock MCC (current) use of suppressive antibiotics Z79.2 (ICD-10-CM ) 12/31 Active 12/31 Tanna Anderson MCC (current) use of antibiotics Infection following a procedure, subsequent encounter T81.4xxD (ICD-10-CM ) 12/31 Active 12/31 Tanna Anderson Infection following a procedure, subsequent encounter Morbid obesity due to excess calories E66.01 (ICD-10-CM ) 08/02 Active 08/02 Tanna Anderson Morbid (severe) obesity due to excess calories MORGANELLA B96.89 (ICD-10-CM ) 08/02 Inactive 08/02 Tanna Anderson Other specified bacterial agents as the cause of diseases classified elsewhere Diarrhea 15873229 (SNOMED CT) 08/02 Inactive 08/02 Tanna Anderson Diarrhea Candidiasis of skin/Under Breasts B37.2 (ICD-10-CM ) 08/02 Inactive 08/02 Tanna Anderson Candidiasis of skin and nail Thrush 83973507 (SNOMED CT) 08/25 Inactive 08/25 Tanna Anderson Candidiasis 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 (ICD-10-CM ) 12/31 Active 12/31 Tanna Anderson Personal history of other infectious and parasitic diseases Hx of MRSA infection 863163600 (SNOMED CT) 12/31 Active 12/31 Tanna Anderson H/O: infectious disease MRSA 239504590 (SNOMED CT) 08/02 Inactive 08/02 Tanna Anderson Methicillin resistant Staphylococcus aureus infection Abscess, lumbar L02.212 (ICD-10-CM ) 06/28 Active 06/28 Diana Sher Cutaneous abscess of back [any part, except buttock] Cellulitis, LUMBAR 53243586 (SNOMED CT) 08/02 Inactive 08/02 Diana Sher Cellulitis of back, except buttock Thrush 94442729 (SNOMED CT) 08/25 Removed 08/25 Arline Orlando Candidiasis LUMBAR WOUND INFECTION 682.2 (ICD-9-CM) 08/02 Inactive 08/02 Lacie W Cellulitis and abscess of trunk MRSA 105969358 (SNOMED CT) 08/02 Removed 08/02 Lacie W Methicillin resistant Staphylococcus aureus infection MORGANELLA B96.89 (ICD-10-CM ) 08/02 Removed 08/02 Lacie W Other specified bacterial agents as the cause of diseases classified elsewhere Morbid obesity 051659972 (SNOMED CT) 08/02 Inactive 08/02 Lacie W Morbid obesity Candidiasis of skin/Under Breasts B37.2 (ICD-10-CM ) 08/02 Removed 08/02 Lacie W Candidiasis of skin and nail Diarrhea 01850384 (SNOMED CT) 08/02 Removed 08/02 Lacie W Diarrhea Medications Medication Instructions Start Date Stop Date Generic Name NDC Provider BACTRIM DS 800-160 MG TABS take 1 tab po BID SULFAMETHOXAZOLE- TRIMETHOPRIM [id number] Luis Dotson MD FORTAZ (IV) 12/25 FORTAZ (IV) Luis Dotson MD URSODIOL 500 MG TABS take 2000 mg po daily URSODIOL 80343183288 Luis Dotson MD BISOPROLOL FUMARATE 10 MG TABS 12/25 BISOPROLOL FUMARATE 86768724945 Luis Dotson MD HYDROCODONE-ACETAM INOPHEN 10-325 MG TABS take 1 tab po Q4H HYDROCODONE-ACETA MINOPHEN 92180499583 Luis Dotson MD ALPRAZOLAM 0.25 MG TABS take 1 tab po daily ALPRAZOLAM 93531769885 Luis Dotson MD GABAPENTIN 300 MG CAPS 12/25 GABAPENTIN 06866866294 Luis Dotson MD FLORASTOR CAPS 12/25 SACCHAROMYCES BOULARDII CAPS 65038958572 Luis Dotson MD PREDNISONE 1 MG TABS take 4mg po daily PREDNISONE 44774173484 Luis Dotson MD METHOTREXATE SODIUM (PF) 200 MG/8ML INJECTION SOLUTION 12/25 METHOTREXATE SODIUM 12674806807 Luis Dotson MD LEVOTHYROXINE SODIUM TABS take one 100 mg tablet by mouth daily LEVOTHYROXINE SODIUM TABS 53159718397 Heather S CYCLOBENZAPRINE HCL 10 MG TABS 06/26 CYCLOBENZAPRINE HCL 49549417153 Heather S LASIX TABS 60 mg by mouth daily FUROSEMIDE TABS 77636161659 Heather S FORTAZ (IV) 12/25 FORTAZ (IV) Luis Dotson MD LYRICA 150 MG CAPS bid PREGABALIN 21737723701 Luis Dotson MD ZEBETA 10 MG ORAL TABLET BISOPROLOL FUMARATE 49305400367 Luis Dotson MD PREDNISONE 1 MG TABS three tabs once a day 12/25 PREDNISONE 82106022860 Luis Dotson MD POTASSIUM CHLORIDE 20 MEQ PACK 12/07 POTASSIUM CHLORIDE 11316805165 Luis Dotson MD FORTEO SOLUTION 12/07 TERIPARATIDE (RECOMBINANT) SOLN 55981247109 Lius Dotson MD LOVENOX SOLUTION 12/07 ENOXAPARIN SODIUM SOLN 07880306193 Luis Dotson MD XARELTO 15 MG TABS 12/07 RIVAROXABAN 36035598225 Luis Dotson MD LEVOTHYROXINE SODIUM TABS 08/17 LEVOTHYROXINE SODIUM TABS 84112917640 Luis Dotson MD ESCITALOPRAM OXALATE TABS ESCITALOPRAM OXALATE TABS 08633856933 Luis Dotson MD BACTRIM DS 800-160 MG TABS Take one pill twice daily. 08/17 SULFAMETHOXAZOLE- TRIMETHOPRIM 24878567742 Luis Dotson MD XARELTO 10 MG TABS RIVAROXABAN 46299754195 Luis Dotson MD METHOTREXATE SODIUM (PF) 200 MG/8ML INJECTION SOLUTION 02/13 METHOTREXATE SODIUM 30683144572 Luis Dotson MD PREDNISONE TABS PREDNISONE TABS 02017870972 Luis Dotson MD BACTRIM DS 800-160 MG TABS 1 by mouth twice a day 01/07 SULFAMETHOXAZOLE- TRIMETHOPRIM 13462889178 Luis Dotson MD PREDNISONE (WILLIAMS) 10 MG TABS 12/07 PREDNISONE 54470822242 Luis Dotson MD XARELTO 10 MG TABS RIVAROXABAN 31040353334 Luis Dotson MD BACTRIM DS 800-160 MG TABS 1 by mouth twice a day 11/05 SULFAMETHOXAZOLE- TRIMETHOPRIM 21280303538 Luis Dotson MD LOVENOX SOLUTION 08/17 ENOXAPARIN SODIUM SOLN 08949023359 Hali Walker FORTEO SOLUTION 06/24 TERIPARATIDE (RECOMBINANT) SOLN 64412389007 Hali Walker EQL POTASSIUM GLUCONATE 595 (99 K) MG ORAL TABLET POTASSIUM GLUCONATE 67561786140 Hali Walker FLORASTOR CAPS 12/25 SACCHAROMYCES BOULARDII CAPS 30129974913 Hali Walker CYCLOBENZAPRINE HCL 10 MG TABS 06/26 CYCLOBENZAPRINE HCL 06710847049 Hali Walker OYST-DINESH D TABLET 08/25 CALCIUM CARBONATE-VITAMIN D TABS 46080526355 Hali Walker ALLERGY RELIEF 180 MG TABS 08/25 FEXOFENADINE HCL 43279847628 Hali Walker NUCYNTA 50 MG TABS 08/25 TAPENTADOL HCL 14336272106 Hali Walker TRAZODONE HCL 100 MG TABS 08/25 TRAZODONE HCL 67883602371 Hali Walker FORTAZ (IV) 08/25 FORTAZ (IV) Hali Walker BACTRIM DS 800-160 MG TABS 1 by mouth twice a day 09/08 SULFAMETHOXAZOLE- TRIMETHOPRIM 28999056633 Hali Walker BACTRIM DS 800-160 MG TABS 1 tab by mouth twice daily x 6 weeks 10/06 SULFAMETHOXAZOLE- TRIMETHOPRIM 23973499954 Luis Dotson MD NYSTATIN 882243 UNIT/ML SUSP 1 teaspoon by mouth four times daily; swish and swallow for oral thrush 09/08 NYSTATIN 52162871670 Luis Dotson MD BACTRIM DS 800-160 MG TABS 1 by mouth twice a day 09/08 SULFAMETHOXAZOLE- TRIMETHOPRIM 33612346837 Luis Dotson MD FORTAZ (IV) 08/25 FORTAZ (IV) Arline Orlando TRAZODONE HCL 100 MG TABS 08/25 TRAZODONE HCL 25509146274 Samy Hyde AMITRIPTYLINE HCL 25 MG TABS AMITRIPTYLINE HCL 19470887507 Samy Hyde D 1000 1000 UNIT ORAL TABLET CHOLECALCIFEROL 03777072048 Samy Hyde NUCYNTA 50 MG TABS 08/17 TAPENTADOL HCL 90850258581 Samy Hyde NADIRA ALLERGY 60 MG TABS FEXOFENADINE HCL 78676216572 Samy Hyde POTASSIUM CHLORIDE 20 MEQ PACK 08/17 POTASSIUM CHLORIDE 94199685304 Samy Hyde URSODIOL 300 MG CAPS 0 10/29 URSODIOL 58790438375 Samy Hyde GABAPENTIN 300 MG CAPS 10/29 GABAPENTIN 17298926985 Samy Hyde XALATAN 0.005 % SOLN LATANOPROST 95118981225 Samy Hyde VENTOLIN HFA AERS ALBUTEROL SULFATE AERS 91862464939 Samy Hyde FISH OIL 500 MG CAPS OMEGA-3 FATTY ACIDS 10080810728 Samy Hyde MULTIVITAMINS ORAL CAPSULE MULTIPLE VITAMIN 57886703846 Samy Hyde ALPRAZOLAM 0.5 MG TABS 08/17 ALPRAZOLAM 77792671001 Samy Hyde HYDROCODONE-ACETAM INOPHEN 5-325 MG TABS 12/25 HYDROCODONE-ACETA MINOPHEN 55266400509 Samy Hyde VALIUM 5 MG TABS 08/12 DIAZEPAM 91500619792 Samy Hyde ALAVERT 10 MG ORAL TABLET 08/12 LORATADINE 20185618646 Samy Hyde MICONAZOLE 7 2 % CREA 08/12 MICONAZOLE NITRATE 42842012426 Samy Hyde FORTEO 600 MCG/2.4ML SUBCUTANEOUS SOLUTION 08/12 TERIPARATIDE (RECOMBINANT) 74285486789 Samy Hyde PERCOCET 10-325 MG TABS 08/12 OXYCODONE-ACETAMI NOPHEN 52504080249 Samy Hyde VITAMIN D3 50 MCG (1999 [place]) TABS 08/12 CHOLECALCIFEROL 75315371591 Samy Hyde SENNA TABS 08/12 SENNA TABS 72872957091 Samy Hyde REMERON 15 MG TABS 08/12 MIRTAZAPINE 59467041288 Samy Hyde BACTRIM DS 800-160 MG TABS 1 by mouth twice a day 08/25 SULFAMETHOXAZOLE- TRIMETHOPRIM 12313157545 Luis Dotson MD XARELTO 15 MG TABS 12/07 RIVAROXABAN 61998170300 Angélica Bryant BACLOFEN 10 MG TABS take 5 mg three times a day BACLOFEN 91663695240 Angélica Bryant BACTRIM DS 800-160 MG TABS 1 by mouth twice a day 08/18 SULFAMETHOXAZOLE- TRIMETHOPRIM 35651342338 Angélica Bryant BACTRIM DS 800-160 MG TABS 1 by mouth twice a day 08/18 SULFAMETHOXAZOLE- TRIMETHOPRIM 61860704529 Luis Dotson MD ROCEPHIN SOLR 2gm IV q 24 [facility] 08/04 CEFTRIAXONE SODIUM SOLR 85248844031 [facility] VANCOMYCIN HCL SOLR 1250mg IV q 12 [facility] 08/04 VANCOMYCIN HCL SOLR 23782624807 Arline Cranlori ROCEPHIN SOLR 2gm IV q 24 [facility] 08/04 CEFTRIAXONE SODIUM SOLR 20459560669 [facility] VANCOMYCIN HCL SOLR 1250mg IV q 12 [facility] 05/19 VANCOMYCIN HCL SOLR 10504805090 [facility] BISOPROLOL FUMARATE 10 MG TABS 12/25 BISOPROLOL FUMARATE 40104976200 Dominick Sarmiento LASIX TABS 06/26 FUROSEMIDE TABS 20191124464 Dominick Sarmiento ALLERGY RELIEF 180 MG TABS 10/29 FEXOFENADINE HCL 50908277176 Dominick Sarmiento PRILOSEC 20 MG ORAL CAPSULE DELAYED RELEASE OMEPRAZOLE 41327276796 Dominick Sarmiento REMERON 15 MG TABS 07/15 MIRTAZAPINE 87885214382 Dominick Sarmiento SENNA TABS 08/12 SENNA TABS 22336489567 Dominick Sarmiento VITAMIN D3 50 MCG (1999 [place]) TABS 08/12 CHOLECALCIFEROL 24557975893 Dominick Torsten OYST-DINESH D TABLET 08/25 CALCIUM CARBONATE-VITAMIN D TABS 46906272236 Dominick Torsten PERCOCET 10-325 MG TABS 08/17 OXYCODONE-ACETAMI NOPHEN 47187513563 Dominick Torsten FORTEO 600 MCG/2.4ML SUBCUTANEOUS SOLUTION 06/24 TERIPARATIDE (RECOMBINANT) 14533374547 Dominick Torsten PREDNISONE TABS PREDNISONE TABS 29570994467 Dominick Torsten MICONAZOLE 7 2 % CREA 10/29 MICONAZOLE NITRATE 88513241574 Dominick Torsten ALAVERT 10 MG ORAL TABLET 08/12 LORATADINE 02641835864 Dominick D VALIUM 5 MG TABS 07/15 DIAZEPAM 55510764887 Dominick D Medications Administered No information available. Allergies, Adverse Reactions, Alerts Allergy Name Reaction Description Start Date Severity Statu s Provider CERTAIN TAPES? Moderate Active Sylv ia Z MACROBID Critical Active Dominick Torsten Results Date Name Value Unit Range Flag Description Lab Report: Vancomycin Troug h VANCOMY CHAL 27.0 ug/mL 10.0-20. 0 H vancomycin level, serum, trough Lab Report: CBC w Auto Diff RBC MORPH Few/1+ Elliptocyte RBC morphology BASOPHIL % 0.6 % 0.0-1.0 N Basophils/ 100 leukocytes in Blood by Manual count MONOCYTE BF 14.6 % 0.0-12.0 H monocyte s as percent of body fluid leukocytes LYMPHOCY BF 26.2 % 24.0-44. 0 N lymphocytes as percent of body fluid leukocytes NEUTROP BF 51.5 % 41.0-71. 0 N Neutrophils/100 leukocytes in Body fluid BASOABSOLMAN 0.04 K/MCL {Cells}/ uL 0.00-0.2 0 N basophils, absolute, manual MONOCYTABMAN 1.01 K/MCL {Cells}/ uL 0.00-1.0 0 H monocytes, absolute, manual LYMPHSABSMAN 1.81 K/MCL {Cells}/ uL 0.60-4.8 0 N lymphocytes, absolute, manual RDW_ 16.9 11.3-14. 5 H RDW, no units Lab Report: Basic Metabolic Panel GFR EST 63 mL/min estimated glomerular filtration rate Rx Refill: eRx Request for B ACTRIM DS 800-160 TAB ESM_RR [id number]`MADY TRIM DS 800-160 TAB`800-160``60 Tablet`30`TAKE ONE TABLET BY MOUTH TWICE DAILY``1`0`05/19`01/04/20 16`[facility] 591*`[id number] `[id number]``S MZ/TMP DS 800-160 TAB Quantity: 60 Tablet Instructions: TAKE ONE TABLET BY MOUTH TWICE DAILY B e-[employer] alfredo vanessa refill request Lab Report: C-REACTIVE PROTE IN CRPCARDRISK 16.20 MG/DL 0.00-10. 00 H C reactive protein [Mass/volume] in Serum or Plasma Office Visit: 7 MEDS REVIEW Done Documenta tion of current medications (procedure) Lab Report: CBC WITH AUTO DI FFERENTIAL IMMATUREGRAN 0.10 10*3/MM3 0.00-0.0 3 H Immature granulocytes [#/volume] in Blood BASO# 0.02 10*3/mm3 0.00-0.2 0 Basophils [#/volume] in Blood EOS ABSLT 0.12 10*3/uL 0.00-0.3 0 Eosinophils [#/volume] in Blood MONOSCT AUTO 0.53 10*3/uL 0.00-1.0 0 Monocytes [#/volume] in Blood by Automated count LYMPHCT AUTO 1.65 10*3/mm3 0.60-4.8 0 Lymphocytes [#/volume] in Blood by Automated count ABS NEUTROPH 3.92 10*3/uL 1.50-8.3 0 Neutrophils [#/volume] in Blood IMM GRANU % 1.6 % 0.0-0.6 H Immature granulocytes/100 leukocytes in Blood % EOS AUTO 1.9 % 0.0-3.0 Eosinophil s/100 leukocytes in Blood by Automated count MONOCYTE % 8.4 % 0.0-12.0 Monocytes /100 leukocytes in Blood by Automated count LYMPHS % 26.0 % 24.0-44. 0 Lymphocytes/100 leukocytes in Blood by Automated count PMN % 61.8 % 41.0-71. 0 Neutrophils/100 leukocytes in Blood by Automated count PLATELETS 221 10*3/mm3 150-450 Platelets [#/volume] in Blood by Automated count RDW 13.5 % 11.3-14. 5 Erythrocyte distribution width [Ratio] by Automated count MCHC 32.9 G/DL 32.0-36. 0 MCHC [Mass/volume] by Automated count MCH 30.5 pg 27.0-31. 0 MCH [Entitic mass] by Automated count MCV 92.8 fL 80.0-99. 0 MCV [Entitic volume] by Automated count HCT 38.9 % 34.5-44. 0 Hematocrit [Volume Fraction] of Blood by Automated count HGB 12.8 g/dL 11.5-15. 5 Hemoglobin [Mass/volume] in Blood RBC 4.19 10*6/mm3 3.89-5.1 4 Erythrocytes [#/volume] in Blood by Automated count WBC 6.34 10*3/mm3 3.50-10. 80 Leukocytes [#/volume] in Blood by Automated count Office Visit: rm #7 ORALTOBACUSE yes Tobacco smoking status SMOK STATUS Never smoker Toba account manager relief smoking status Lab Report: SEDIMENTATION RA TE ESR 64 mm/h 0-30 H Erythrocyte sedimentation rate by Westergren method Lab Report: COMPREHENSIVE ME TABOLIC PANEL ANIONGAP 11.0 mmol/L 3.0-11.0 anion gap, serum BUN/CREAT 12.5 7.0-25.0 Urea nitrogen/Creatinine [Mass Ratio] in Serum or Plasma [id number]-[id number] 1.4 g/dL 1.5-2.5 L GE use only - for [employer] import when terms are not otherwise specified GFRC 71 mL/min/1 .73m2 >60 Glomerular Filtration Rate Calculation BILI TOTAL 0.2 mg/dL 0.3-1.2 L Bilirubin. total [Mass/volume] in Serum or Plasma ALK PHOS 183 U/L 25-100 H Alkaline phosphatase [Enzymatic activity/volume] in Blood SGOT (AST) 35 U/L 0-33 H Aspartate aminotransferase [Enzymatic activity/volume] in Serum or Plasma SGPT (ALT) 38 U/L 7-40 Alanine aminotransferase [Enzymatic activity/volume] in Serum or Plasma ALBUMIN 4.40 g/dL 3.20-4.8 0 Albumin [Mass/volume] in Serum or Plasma PROTEIN, TOT 7.5 g/dL 5.7-8.2 Protein [Mass/volume] in Serum or Plasma CALCIUM 9.8 mg/dL 8.7-10.4 Calcium [Moles/volume] in Serum or Plasma CO2 26.0 mmol/L 20.0-31. 0 Carbon dioxide, total [Moles/volume] in Venous blood CHLORIDE 93 mmol/L 99-109 L Chloride [Moles/volume] in Serum or Plasma POTASSIUM 4.5 mmol/L 3.5-5.5 Potassium [Moles/volume] in Serum or Plasma SODIUM 130 mmol/L 132-146 L Sodium [Moles/volume] in Serum or Plasma CREATININE 0.80 mg/dL 0.60-1.3 0 Creatinine [Mass/volume] in Serum or Plasma BUN 10 mg/dL 9-23 Urea nitrogen [Mass/volume] in Serum or Plasma GLUCOSE SER 77 mg/dL 70-100 Glucose [Mass/volume] in Serum or Plasma Lab Report: C-REACTIVE PROTE IN CRP 1.66 mg/dL 0.00-1.0 0 H C reactive protein [Mass/volume] in Serum or Plasma Plan of Care Type Date Detail Pending order STAT Labs Pending order CMP Pending order CBC with Differe ntial Pending order Sedimentation Ra te (ESR) Pending order C- reactive prot ein Pending order CMP Pending order C- reactive prot ein Pending order Sedimentation Ra te (ESR) Pending order CMP Pending order C- reactive prot ein Pending order Sedimentation Ra te (ESR) Pending order Sedimentation Ra te (ESR) Pending order Hep C AB Pending order C- reactive prot ein Pending order Sedimentation Ra te (ESR) Pending order CMP Pending order Hepatitis C Atb: (ICD 10 Code: Z11.59) Pending order STAT Labs Pending order Sedimentation Ra te (ESR) Pending order C- reactive prot ein Pending order CMP Pending order CMP Pending order C- reactive prot ein Pending order CMP Pending order C- reactive prot ein Pending order Sedimentation Ra te (ESR) Pending order BMP Pending order Continue oral an tibiotics Pending order BMP Pending order Continue oral an tibiotics Pending order New Oral Antibio tic Pending order Continue oral an tibiotics Pending order Redress Wound Pending order Discontinue IV a ntibiotics Pending order New Oral Antibio tic Pending order PICC Removal Pending order BMP Patient education Medications Patient education Medications Patient education Medications Patient education WEIGHT%20MANAG EMENT Patient education WEIGHT%20MANAG EMENT Patient education WEIGHT%20MANAG EMENT Patient education WEIGHT%20MANAG EMENT Patient education Medications Patient education Medications Patient education Medications Patient education Medications Procedures Code Procedure Name Date Entry Date CPT-sl STAT Labs CPT-15571 CMP [id number] CBC with Differential 2016 CPT-04083 Sedimentation Rate (ESR) 201 11/23/08 CPT-75427 C- reactive protein CPT-04938 Hep C AB CPT-45606 C- reactive protein CPT-70680 Sedimentation Rate (ESR) 201 10/25/07 CPT-70277 CMP 68139 Hepatitis C Atb: (ICD 10 Code: Z11.59) 20 01/01/05 CPT-sl STAT Labs CPT-25381 Sedimentation Rate (ESR) 201 10/19/07 CPT-50704 C- reactive protein CPT-88107 CMP CPT-66243 CMP CPT-99935 C- reactive protein CPT-79156 CMP CPT-97330 C- reactive protein CPT-14045 Sedimentation Rate (ESR) 201 09/16/20 CPT-99347 BMP CPT-Cooral Continue oral antibiotics 20 29/09/20 CPT-73699 BMP CPT-Cooral Continue oral antibiotics 20 30/08/08 CPT-elgin New Oral Antibiotic CPT-Cooral Continue oral antibiotics 20 30/07/25 CPT-WC Redress Wound CPT-DC Discontinue IV antibiotics 2 CPT-elgin New Oral Antibiotic CPT-PICREM PICC Removal CPT-99267 BMP Vital Signs Date Name Value Unit Description BMI (Body Mass Index) 42.87 kg/m2 Bod y Mass Index (Ratio) Body Temperature 97.8 [degF] temperat ure E&M BP Diastolic 68 mm[Hg] blood pressu re, diastolic BP Systolic 132 mm[Hg] blood pressur e, systolic Heart Rate 74 /min pulse rate Height 68 [in_us] height E&M Respiratory Rate 14 /min respirat ory rate E&M Weight Measured 282 [lb_av] weight E& M Weight Measured 282 [lb_av] weight E& M Immunizations No information available. Advance Directives Directive Description Start Date NO LIVING WILL
--- OUTSIDE RECORDS SUMMARY | 2024-11-04 08:59 | XMS_ITS | Encounter Summary ---
Author Organization [facility] Address [address] [place] [address] Care Team Providers Care Marriage Counselor Name Role Phone Unavailable Primary Care Provider Unavailabl e Encounter Details Date Type Department Care Team (Late st Contact Info) Description 12/21/2021 Transcribed Document [facility] [address] [place] [address] ProviderBird MD [address] [place] [address] Social History Tobacco Use Types Packs/Day Years Used Date Smoking Tobacco: Never Assessed Comments Unknown Sex and Gender Information Value Date Recorded Sex Assigned at Not on file Legal Sex Female 2:53 PM CDT Gender Identity Not on file Sexual Orientation Not on file documented as of this encounter Miscellaneous Notes * Cerner Conversion Note - Bird Schilling MD - 12/21/2021 8:37 PM CDT [place] [id number] EVARISTO MARINO C :1950 Visit Time:12/21/2021 Your Visit Summary Your Care Team Primary Provider: CHUN CEDENO Secondary Provider: Your Diagnosis DDD (degenerative disc disease), lumbar Fall Fall Hip pain Knee effusion Knee pain-swelling Leg pain-swelling Skin tear of lower leg without complication Medical Information You may obtain a copy of your Emergency Department visit from Medical Records by calling the hospital phone number listed above and asking to be directed to the Medical Records Department. If you had special tests, such as EKG???s or X-rays, the interpretation of your tests given to you by the Emergency Department Physician is a preliminary report. Some fractures and illnesses fail to show up on preliminary tests. These will be reviewed again and we will call you if there are any new suggestions. If your symptoms continue notify your physician. After you leave, you should follow the instructions provided. What to do next Follow-Up Appointments Follow Up with JACKIE HAYDEN When Within 2 to 3 days Comments Call for follow up appointment with orthopaedics Follow Up with LUIGI DIAS When Within 2 to 3 days Allergies Macrobid (Itching) Tape (Blisters, Rash) Immunizations This Visit No Immunizations Found Medications What How Much When Instructions Next Dose acetaminophen-hydrocodone (Klondike 10 mg-325 mg oral tablet) 1 Tablet(s) Oral Every 4 Hours as needed for for pain albuterol 0.09 Milligram(s) Inhalation Four Times A Day as needed for Spasms bronchial spasms ALPRAZolam 0.5 Milligram(s) Oral Three Times A Day amitriptyline 25 Milligram(s) Oral At Bedtime bisoprolol 2.5 Milligram(s) Oral Every Day calcium-vitamin D (Oyst-Jameson-D) 500 mg + 200 units Oral Two Times A Day hospital med cholecalciferol (Vitamin D3) 1,000 Unit(s) Oral Every Day hospital med cyclobenzaprine 10 Milligram(s) Oral Two Times A Day fexofenadine (Joyce) 60 Milligram(s) Oral Every Day as needed for allergies furosemide 40 Milligram(s) Oral Every Day hospital med gabapentin 300 Milligram(s) Oral Three Times A Day hospital med latanoprost ophthalmic (Xalatan 0.005% ophthalmic solution) 1 Drop(s) Eyes Both At Bedtime hospital multivitamin 1 Tablet(s) Oral Every Day hospital med omega-3 polyunsaturated fatty acids (Fish Oil 500 mg oral capsule) 2 Capsule(s) Oral Every Day hospital med omeprazole 20 Milligram(s) Oral Every Day home l med potassium chloride (potassium chloride 20 mEq oral tablet, extended release) 1 Tablet(s) Oral Every Day hospital med predniSONE 15 Milligram(s) Oral Every Day hospital med rivaroxaban (Xarelto 20 mg oral tablet) 1 Tablet(s) Oral Every Evening saccharomyces boulardii lyo (Florastor) 250 Milligram(s) Oral Two Times A Day sulfamethoxazole-trimethoprim (Bactrim) 800/160 Oral Two Times A Day teriparatide (Forteo 600 mcg/ 2.4 mL subcutaneous device) 20 Microgram(s) SubCutaneous Every Day trazodone 100 Milligram(s) Oral As needed for Pain ursodiol (ursodiol 300 mg oral capsule) 1 Capsule(s) Oral Two Times A Day hospital med The home medications listed are only as accurate as the information you provided. Please continue taking all of your medications prescribed by your Primary Care Provider unless specifically told to change or discontinue the medication. Please direct any questions regarding your home medications to your Primary Care Provider. Take your medications faithfully. Do NOT skip medication. Do NOT stop taking medications without the direction of a physician. Carry a list of your medications with you at all times, and take this medication list with you to your first follow up visit. Report any side effects. Avoid herbal remedies unless discussed with your physician. As part of your treatment plan, your physician may have prescribed a limited course of a controlled substance. This medication may be given to help people with moderate or severe pain or for other medical conditions, but there are risks involved with treatment. Common side effects may include nausea, constipation, drowsiness, sweating, itching, dry mouth, and rash. More serious side effects may include cognitive and motor impairment, like problems with thinking, concentrating, alertness, and movement (e.g. slowed reflexes), and driving and operating heavy machinery can be dangerous. It is important for you to talk to your physician if you have these side effects or questions. These controlled substances can produce physical dependence and be habit-forming if taken for an extended period of time, which means that the body has gotten used to them and may experience withdrawal symptoms if they are abruptly stopped. Withdrawal symptoms can include runny nose, sweating, goose bumps, diarrhea, abdominal cramping, rapid heartbeat, difficulty sleeping, and nervousness. Please dispose of unused and medications per pharmacy guidance. Test Results Laboratory or Other Results This Visit (last charted value for your 12/21/2021 visit) Computed Tomography 12/21/2021 6:[address] Abdomen Pelvis WO: CT Abdomen Pelvis WO CT Knee RT WO: CT Knee RT WO CT Spine Lumbar WO: CT Spine Lumbar WO Education [employer] Skin Tear A skin tear is a wound in which the top layers of skin have peeled off from the deeper skin or tissues underneath. This is a common problem as people get older because the skin becomes thinner and more fragile. In addition, some medicines, such as oral corticosteroids, can lead to thinning skin if they are taken for long periods of time. A skin tear is often repaired with tape or skin adhesive strips. Depending on the location of the wound, a bandage (dressing) may be applied over the tape or adhesive strips. Follow these instructions at home: Wound care ??? Clean the wound as told by your health care provider. You may be instructed to keep the wound dry for the first few days. If you are told to clean the wound: ? Wash the wound as told by your health care provider. This may include using mild soap and water, a wound cleanser, or a salt???water (saline) solution. ? If using soap, rinse the wound with water to remove all soap. ? Do not rub the wound dry. Pat it gently with a clean towel or let it air-dry. ??? Change any dressings as told by your health care provider. This may include changing the dressing if it gets wet, gets dirty, or starts to smell bad. ? Wash your hands with soap and water for at least 20 seconds before and after you change your bandage (dressing). If soap and water are not available, use hand resaw feeder. ? Leave tape or skin adhesive strips in place. These skin closures may need to stay in place for 2 weeks or longer. If adhesive strip edges start to loosen and curl up, you may trim the loose edges. Do not remove adhesive strips completely unless your health care provider tells you to do that. ??? Check your wound every day for signs of infection. Check for: ? Redness, swelling, or pain. ? More fluid or blood. ? Warmth. ? Pus or a bad smell. ??? Do not scratch or pick at the wound. ??? Protect the injured area until it has healed. Medicines ??? Take or apply wyif-tdf-jgbthjz and prescription medicines only as told by your health care provider. ??? If you were prescribed an antibiotic medicine, take or apply it as told by your health care provider. Do not stop using the antibiotic even if your condition improves. General instructions ??? Keep the dressing dry as told by your health care provider. ??? Do not take baths, swim, use a hot tub, or do anything that puts your wound underwater until your health care provider approves. Ask your health care provider if you may take showers. You may only be allowed to take sponge baths. ??? Keep all follow-up visits. This is important. Contact a health care provider if: ??? You have redness, swelling, or pain around your wound. ??? You have more fluid or blood coming from your wound. ??? Your wound, or the area around your wound, feels warm to the touch. ??? You have pus or a bad smell coming from your wound. Get help right away if: ??? You have a red streak that goes away from the skin tear. ??? You have a fever and chills, and your symptoms suddenly get worse. Summary ??? A skin tear is a wound in which the top layers of skin have peeled off from the deeper skin or tissues underneath. ??? A skin tear is often repaired with tape or skin adhesive strips, and a bandage (dressing) may be applied over the tape or the adhesive strips. ??? Change any dressings as told by your health care provider. ??? Take or apply rzby-pvh-rnnmctv and prescription medicines only as told by your health care provider. ??? Contact a health care provider if you have signs of infection. This information is not intended to replace advice given to you by your health care provider. Make sure you discuss any questions you have with your health care provider. Document Revised: 08/09/2020 Document Reviewed: 08/09/2020 [employer] Patient Education ?? 2020 [employer] Fall Prevention in the Home, Adult Falls can cause injuries and can affect people from all age groups. There are many simple things that you can do to make your home safe and to help prevent falls. Ask for help when making these changes, if needed. What actions can I take to prevent falls? General instructions ??? Use good lighting in all rooms. Replace any light bulbs that burn out. ??? Turn on lights if it is dark. Use night-lights. ??? Place frequently used items in hwlo-nz-zanet places. Lower the shelves around your home if necessary. ??? Set up furniture so that there are clear paths around it. Avoid moving your furniture around. ??? Remove throw rugs and other tripping hazards from the floor. ??? Avoid walking on wet floors. ??? Fix any uneven floor surfaces. ??? Add color or contrast paint or tape to grab bars and handrails in your home. Place contrasting color strips on the first and last steps of stairways. ??? When you use a stepladder, make sure that it is completely opened and that the sides are firmly locked. Have someone hold the ladder while you are using it. Do not climb a closed stepladder. ??? Be aware of any and all pets. What can I do in the bathroom? Keep the floor dry. Immediately clean up any water that spills onto the floor. ??? Remove soap buildup in the tub or shower on a regular basis. ??? Use non-skid mats or decals on the floor of the tub or shower. ??? Attach bath mats securely with double-sided, non-slip rug tape. ??? If you need to sit down while you are in the shower, use a plastic, non-slip stool. ??? Install grab bars by the toilet and in the tub and shower. Do not use towel bars as grab bars. What can I do in the bedroom? Make sure that a bedside light is easy to reach. ??? Do not use oversized bedding that drapes onto the floor. ??? Have a firm chair that has side arms to use for getting dressed. What can I do in the kitchen? Clean up any spills right away. ??? If you need to reach for something above you, use a sturdy step stool that has a grab bar. ??? Keep electrical cables out of the way. ??? Do not use floor czech or wax that makes floors slippery. If you must use wax, make sure that it is non-skid floor wax. What can I do in the stairways? Do not leave any items on the stairs. ??? Make sure that you have a light switch at the top of the stairs and the bottom of the stairs. Have them installed if you do not have them. ??? Make sure that there are handrails on both sides of the stairs. Fix handrails that are broken or loose. Make sure that handrails are as long as the stairways. ??? Install non-slip stair treads on all stairs in your home. ??? Avoid having throw rugs at the top or bottom of stairways, or secure the rugs with carpet tape to prevent them from moving. ??? Choose a carpet design that does not hide the edge of steps on the stairway. ??? Check any carpeting to make sure that it is firmly attached to the stairs. Fix any carpet that is loose or worn. What can I do on the outside of my home? Use bright outdoor lighting. ??? Regularly repair the edges of walkways and driveways and fix any cracks. ??? Remove high doorway thresholds. ??? Trim any shrubbery on the main path into your home. ??? Regularly check that handrails are securely fastened and in good repair. Both sides of any steps should have handrails. ??? Install guardrails along the edges of any raised decks or porches. ??? Clear walkways of debris and clutter, including tools and rocks. ??? Have leaves, snow, and ice cleared regularly. ??? Use sand or salt on walkways during winter months. ??? In the garage, clean up any spills right away, including grease or oil spills. What other actions can I take? Wear closed-toe shoes that fit well and support your feet. Wear shoes that have rubber soles or low heels. ??? Use mobility aids as needed, such as canes, walkers, scooters, and crutches. ??? Review your medicines with your health care provider. Some medicines can cause dizziness or changes in blood pressure, which increase your risk of falling. Talk with your health care provider about other ways that you can decrease your risk of falls. This may include working with a physical therapist or dog handler or trainer to improve your strength, balance, and endurance. Where to find more information ??? Centers for Disease Control and Prevention, ROSA MARIA: https://www.cdc.gov ??? National [place] on Aging: https://fb5jqbx.kobe.nih.gov Contact a health care provider if: ??? You are afraid of falling at home. ??? You feel weak, drowsy, or dizzy at home. ??? You fall at home. Summary ??? There are many simple things that you can do to make your home safe and to help prevent falls. ??? Ways to make your home safe include removing tripping hazards and installing grab bars in the bathroom. ??? Ask for help when making these changes in your home. This information is not intended to replace advice given to you by your health care provider. Make sure you discuss any questions you have with your health care provider. Document Revised: 04/17/2018 Document Reviewed: 12/18/2017 [employer] Patient Education ?? 2020 [employer] Knee Effusion Knee effusion refers to excess fluid in the knee joint. This can cause pain and swelling in your knee. Knee effusion creates more pressure than usual in your knee joint. This makes it more difficult for you to bend and move your knee. If there is fluid in your knee, it often means that something is wrong inside your knee. This can be a result of: ??? Severe arthritis. ??? Injury to the knee muscles or to tissues in the knee (ligaments or cartilage). ??? Infection. ??? Autoimmune disease. This means that your body's defense system (immune system) mistakenly attacks healthy body tissues. Follow these instructions at home: If you have a brace or an immobilizer: ??? Wear it as told by your health care provider. Remove it only as told by your health care provider. ??? Check the skin around it every day. Tell your health care provider about any concerns. ??? Loosen it if your toes tingle, become numb, or turn cold and blue. ??? Keep it clean. ??? If the brace or immobilizer is not waterproof: ? Do not let it get wet. ? Cover it with a watertight covering when you take a bath or shower. Managing pain, stiffness, and swelling ??? If directed, put ice on the affected area. To do this: ? If you have a removable brace or immobilizer, remove it as told by your health care provider. ? Put ice in a plastic bag. ? Place a towel between your skin and the bag. ? Leave the ice on for 20 minutes, 2???3 times a day. ? Remove the ice if your skin turns bright red. This is very important. If you cannot feel pain, heat, or cold, you have a greater risk of damage to the area. ??? Move your toes often to reduce stiffness and swelling. ??? Raise (elevate) your knee above the level of your heart while you are sitting or lying down. Activity ??? Rest as told by your health care provider. ??? Do not use the injured limb to support your body weight until your health care provider says that you can. Use crutches as told by your health care provider. ??? Do exercises as told by your health care provider. General instructions ??? Take yhxz-iwp-rnsdewc and prescription medicines only as told by your health care provider. ??? Do not use any products that contain nicotine or tobacco. These products include cigarettes, chewing tobacco, and vaping devices, such as e-cigarettes. If you need help quitting, ask your health care provider. ??? Wear an elastic bandage or a wrap that puts pressure on your knee (compression wrap) as told by your health care provider. ??? Keep all follow-up visits. This is important. Contact a health care provider if: ??? You continue to have pain in your knee. ??? You have a fever or chills. Get help right away if: ??? You have swelling or redness in your knee that gets worse or does not get better. ??? You have severe pain in your knee. Summary ??? Knee effusion refers to excess fluid in the knee joint. This causes pain and swelling and makes it difficult to bend and move your knee. ??? Effusion may be caused by severe arthritis, autoimmune disease, infection, or injury to the knee muscles or to tissues in the knee (ligaments or cartilage). ??? Take onct-zud-cpjamtv and prescription medicines only as told by your health care provider. ??? If you have a brace or an immobilizer, wear it as told by your health care provider. This information is not intended to replace advice given to you by your health care provider. Make sure you discuss any questions you have with your health care provider. Document Revised: 01/03/2021 Document Reviewed: 01/03/2021 [employer] Patient Education ?? 2020 [employer] Emergency Awareness and Preventative Care STROKE is an EMERGENCY Every Minute Counts Act FAST and Check for these signs: FACE Does the face look uneven? ARM Does one arm drift down? SPEECH Does their speech sound strange? TIME Call at any sign of stroke Stroke Risk Factors Atrial Fibrillation (irregular heartbeat) Diabetes Family history of stroke Heart Disease Heavy alcohol use High Blood Pressure High Cholesterol Physical inactivity and obesity Smoking Cigarette Smoking The facts are clear, cigarette smoking will shorten your life. Smoking can cause many illnesses along the way. As a healthcare provider, we recommend that you stop smoking. Assistance with quitting is available by contacting 1-385-NAXKNOW. This is a free resource providing counseling, support, and referral. Or you may contact your personal physician. Danger Suicide Prevention Lifeline: The National Suicide Prevention Lifeline is a national network of local crisis centers that provides free and confidential emotional support to people in suicidal crisis or emotional distress 24 hours a day, 7 days a week. Don't Wait! Stop a Heart Attack Before it Starts What is a heart attack? A heart attack is damage or to a part of the heart from severely decreased or lack of blood flow to the heart. Over time, arteries can become narrow from the buildup of fat and cholesterol, which is called plaque. The plaque can rupture causing a blood clot to form. When the blood clot forms, the artery can become severely narrowed or completely blocked, causing a heart attack. Heart attack is the leading cause of in the [place]. 85% of muscle damage occurs within the first 2 hours. Delay in the recognition of heart attack symptoms increases the chances of . Know the early symptoms of a heart attack: Nausea Feeling of fullness in chest Jaw Pain Pain that travels down one or both arms Fatigue/being tired Anxiety Back Pain Chest pressure, squeezing, or discomfort Shortness of breath Sweating, or a cold sweat Feeling of impending doom There are unusual signs of a heart attack, too! Women, the elderly, and diabetics may present with atypical symptoms: Fainting/dizziness Weakness Confusion Risk Factors for a Heart Attack Some heart disease risk factors, such as age and family history, cannot be changed. Others, like smoking and lack of exercise, can be changed. Smoking High Cholesterol High Blood Pressure Family History Obesity Age Gender (Males are at higher risk) Lack of Exercise Diabetes Diet Stress Excessive Alcohol Intake If you or someone you know is experiencing the signs and symptoms of a heart attack, DON???T DELAY. Call immediately and seek help. If someone collapses, perform CPR! Do not attempt to drive if you are having symptoms of heart attack. Hands-Only CPR Why Hands-Only CPR? Hands-Only CPR has been shown to be as effective as conventional CPR for cardiac arrests that occur outside of a hospital. Survival depends on immediately receiving CPR from someone nearby. How do you perform Hands-Only CPR? There are two easy steps: Call if you see a teen or adult collapse Push hard and fast in the center of the chest at a beat of 100 beats per minute. Save a life! 4 WAYS TO GET AHEAD OF SEPSIS SEPSIS is a MEDICAL EMERGENCY. Time matters! Infections put you and your family at risk for a life-threatening condition called sepsis. Sepsis is the body's extreme response to an infection. It is life-threatening, and without timely treatment, sepsis can rapidly lead to tissue damage, organ failure, and . Sepsis happens when an infection you already have-in your skin, lungs, urinary tract or somewhere else-triggers a chain reaction throughout your body. 1 PREVENT INFECTIONS Take good care of chronic conditions. Talk to your doctor about getting the recommended vaccines. 2 PRACTICE GOOD HYGIENE Wash your hands frequently. Keep cuts or open sores clean and covered until they are healed. 3 KNOW THE SYMPTOMS Confusion or disorientation Shortness of breath High heart rate Fever, shivering, or feeling very cold Extreme pain or discomfort Clammy or sweaty skin 4 ACT FAST Get medical care IMMEDIATELY if you suspect sepsis or if you have an infection that is not getting better or is getting worse. To learn more about sepsis and how to prevent infections, visit www.cdc.gov/sepsis. The examination and treatment you have received in the Emergency Department has been done to provide an appropriate evaluation and stabilizing treatment on an emergency basis only. Given the limited resources, it is not meant to be a substitute for complete medical care. The follow-up doctor you named will receive a copy of your records and all test reports. IT IS IMPORTANT THAT YOU SCHEDULE A FOLLOW-UP APPOINTMENT AND ARE RE-EVALUATED. You should report any new complaints, symptoms, or remaining problems at that time. IT IS IMPOSSIBLE FOR THE EMERGENCY DEPARTMENT TO RECOGNIZE AND TREAT ALL ELEMENTS OF INJURY OR ILLNESS IN A SINGLE VISIT. If you have been referred to a specialist physician, it means that we believe you may have a condition that requires the expertise of a specialist. These physicians work in partnership with the hospital and have agreed to see referred patients in their office for further evaluation. KEEP IN MIND THAT THE SPECIALIST HAS HIS/HER OWN OFFICE POLICIES WHICH MAY REQUIRE PROPER INSURANCE OR PAYMENT UP FRONT BEFORE THE SPECIALIST WILL SEE YOU. It is your responsibility to call the specialist physician to make an appointment. We do not have the ability to refer patients to specialists/physicians that work with specific insurance companies. Please be advised that all financial charges or billing practices are determined by that practice, not the hospital. If your insurance company requires that you see a specialist from their approved list, it is your responsibility to contact your insurance company to make those arrangements. It is also your responsibility to follow any other requirements of your insurance company necessary to obtain coverage for claims submitted. We will bill your insurance; however, you are responsible today for any co-pay amounts. You will receive a separate bill for any services you may have received including: emergency, radiology, or pathology physicians. Patient Name:EVARISTO MARINO I have received this information and was given the opportunity to ask questions. Patient/Nondestructive Tester Name: Patient/Nondestructive Tester Signature: Relationship to Patient: Clinician/Hospital Nondestructive Tester Signature: Please Provide a Telephone Number Where You Can Be Reached: Is it Permissible To Leave a Message? Date: documented in this encounter Plan of Treatment Not on file documented as of this encounter Visit Diagnoses Not on filedocumented in this encounter
--- OUTSIDE RECORDS SUMMARY | 2024-11-04 08:59 | XMS_ITS | Clinical Summary ---
Author Organization [employer] Address [address] [place], [place] [id number] Care Team Providers Care Digital Coordinator Name Role Phone Unavailable Primary Care Provider Unavailabl e Social History Tobacco Use Types Packs/Day Years Used Date Smoking Tobacco: Never Assessed Comments Unknown Sex and Gender Information Value Date Recorded Sex Assigned at Not on file Legal Sex Female 2:53 PM CDT Gender Identity Not on file Sexual Orientation Not on file Plan of Treatment Not on file
--- OUTSIDE RECORDS SUMMARY | 2024-11-04 08:59 | XMS_ITS | Clinical Summary ---
Author Organization Healthcare Address [address] [place] [address] Care Team Providers Care Rehab Nursing Tech Name Role Phone Elodia Quijano [place] Primary Care Provider [phone] Allergies Active Allergy Reactions Criticality Noted Date Comments Nitrofurantoin Itching Medium 05/20/2014 Wound Dressing Adhesive Unknown - Patien t states they do not know rxn details Low 05/20/2014 Medications Fexofenadine HCl (NADIRA ALLERGY PO) 1 (one) time each day. 5 Active Multiple Vitamins-[place] als (CENTRUM SILVER PO) 1 (one) time each day. 1 Active oxygen (O2) gas 5 Active albuterol (2.5 MG/3ML) 0.083% nebulizer solution 5 Active albuterol (Ventolin HFA) 108 (90 Base) MCG/ACT inhaler 5 Active amitriptyline (Elavil) 25 MG tablet TAKE 1 TABLET AT BEDTIME. 1 Active azaTHIOprine (Imuran) 50 MG tablet TAKE 1 TABLET DAILY. 8 Active bisoprolol (Zebeta) 10 MG tablet TAKE 1 TABLET ONCE DAILY. 1 Active calcium carbonate 1500 (600 Ca) MG tablet TAKE 1 TABLET DAILY. 1 Active escitalopram (Lexapro) 10 MG tablet TAKE 1 TABLET DAILY. 1 Active fluticasone-sa lmeterol (Advair Diskus) 250-50 MCG/ACT diskus inhaler 9 Active HYDROcodone-ac etaminophen ([place]) 10-325 MG tablet TAKE 1 TABLET EVERY 4 HOURS NEEDED FOR PAIN. 1 Active latanoprost (Xalatan) 0.005 % ophthalmic solution 1 Active levothyroxine (Synthroid, Levoxyl) 125 MCG tablet TAKE 1 TABLET DAILY DIRECTED. 8 Active pregabalin (Lyrica) 150 MG capsule TAKE 1 CAPSULE TWICE DAILY. 1 Active spironolactone (Aldactone) 100 MG tablet TAKE 1/2 TABLET TWICE DAILY. 8 Active traZODone (Desyrel) 150 MG tablet TAKE 1 TABLET ONCE DAILY. 1 Active URSODIOL PO TAKE 1 CAPSULE 2-3 TIMES DAILY. 1 Active zoledronic acid (Reclast) 5 MG/100ML solution INFUSE 5MG INTRAVENOUSLY OVER 30 MINUTES DIRECTED PER OUR PROTOCOL 0 Active sulfamethoxazo le-trimethopri m (Bactrim) 400-80 MG tablet Take 1 tablet by mouth 2 (two) times a day. Active predniSONE 10 MG (21) tablet therapy pack Take 1 tablet (10 mg) by mouth daily. Active nystatin (Mycostatin) cream Apply 1 Application topically 2 (two) times a day. Active triamcinolone (Kenalog) 0.1 % cream Apply 1 Application topically 2 (two) times a day. Active Active Problems Problem Noted Date Diagnosed Date Hyperkalemia 07/21/2019 Chronic kidney disease, stage III (moderate) 08/2016 Hyponatremia 04/21/2017 Osteoporosis 05/06/2014 Family History Medical History Relation Name Comments COPD Mother Cardiac disorder Mother Diabetes Mother Osteoporosis Mother Coronary artery disease Other Relation Name Status Comments Mother Other Social History Tobacco Use Types Packs/Day Years Used Date Smoking Tobacco: Never Smokeless Tobacco: Never Tobacco Cessation:Counseling Given: Yes Alcohol Use Standard Drinks/Week Comments No 0 (1 standard drink = 0.6 oz pur e alcohol) Comments No Sex and Gender Information Value Date Recorded Sex Assigned at Not on file Legal Sex Female 7:33 PM EDT Gender Identity Not on file Sexual Orientation Not on file Last Filed Vital Signs Vital Sign Reading Time Taken Comments Blood Pressure 134/84 07/16/2024 11:02 AM EST Pulse 57 07/16/2024 11:02 AM EST Temperature - - Respiratory Rate 18 07/16/2024 11:02 AM EST Oxygen Saturation 95% 07/16/2024 11:02 AM EST Inhaled Oxygen Concentration - - Weight 101 kg (223 lb) 07/16/2024 11:02 AM EST Height 162.6 cm (5' 4 ) 07/16/2024 11:02 AM EST Body Mass Index 38.28 07/16/2024 11:02 AM EST Plan of Treatment Health Maintenance Due Date Last Done Comments [facility]-Bone Density Scan 1948 [facility]-Depression Screening 1948 [facility]-Hepatitis C Screening 1950 [facility]-Medicare Annual Wellness (AWV) 1950 [facility]-Infant/Child/Adol SDOH Screenings 1950 [facility]- SDOH Screenings 02/04/1966 [facility]-Adult SDOH Screenings 02/04/1966 [facility]-Zoster Vaccines (1 of 2) 02/04/1967 [facility]-RSV Vaccine: 60+ Years or (1 - 1-dose 75+ series) 02/04/2023 [id number] Vaccine (5 - 2023- season) 2024 04/06/2022, 04/25/2021, 08/16/2020, Additional history exists [facility]-DTaP,Tdap,and Td Vaccines (3 - Td or Tdap) 08/07/2032 08/07/2022, 12/21/2021, 07/21/1996 [facility]-Pneumococcal Vaccine: 50+ Years Completed 03/20/2022, 02/20/2017 [facility]-Influenza Vaccine Completed 03/08/2024 , 03/13/2023, 03/20/2022, Additional history exists [facility]-Obesity Intervention Completed 07/16/2024 HPV Vaccines Aged Out No longer eligi ble based on patient's age to complete this topic [facility]-HIB Vaccines Aged Out No longer e ligible based on patient's age to complete this topic [facility]-Hepatitis A Vaccines Aged Out No longer eligible based on patient's age to complete this topic [facility]-IPV Vaccines Aged Out No longer e ligible based on patient's age to complete this topic [facility]-Rotavirus Vaccines Aged Out No lo nger eligible based on patient's age to complete this topic Insurance Care Teams Rehab Nursing Tech Relationship Specialty Start Date End Date Elodia Quijano APRN [facility] [place] [phone] PCP - General 09/29/20
--- OUTSIDE RECORDS SUMMARY | 2024-11-04 08:59 | XMS_ITS | Referral Summary ---
Author Organization [employer] Address [address] [place], [place] [id number] Care Team Providers Care Computer Programmer Name Role Phone Unavailable Primary Care Provider [...]
--- OUTSIDE RECORDS SUMMARY | 2024-11-04 08:59 | XMS_ITS | Encounter Summary ---
Author Organization [employer] [facility] Address [address] [place] [id number] Care Team Providers Care Disability Advocate Name Role Phone Unavailable Primary Care Provider Unavailabl e Encounter Details Date Type Department Care Team (Late st Contact Info) Description 12/21/2021 Transcribed Document [facility] [place] [address] ProviderBird MD [facility] [place] [address] Social History Tobacco Use Types Packs/Day Years Used Date Smoking Tobacco: Never Assessed Comments Unknown Sex and Gender Information Value Date Recorded Sex Assigned at Not on file Legal Sex Female 2:53 PM CDT Gender Identity Not on file Sexual Orientation Not on file documented as of this encounter Miscellaneous Notes * Cerner Conversion Note - Bird Schilling MD - 12/21/2021 9:21 PM CDT ED Discharge Entered On: 12/21/2021 21:22 EDT Performed On: 12/21/2021 21:21 EDT by DESIREE OLIVEIRA RN-PATIENT CARE BEDSIDE NON-EXEMPT Discharge Process Patient Disposition : Discharge Personal Belongings With Patient : Yes Patient Education Completed : Yes Teaching Evaluation : Verbalizes understanding IV Discontinued : Not applicable Nursing Documentation Completed : Yes DESIREE OLIVIERA RN-PATIENT CARE BEDSIDE NON-EXEMPT - 12/21/2021 21:21 EDT ED Discharge Discharge To : Home with ambulatory/outpatient follow-up Name of Receiving Facility/Provider : [facility] Mode Of Departure : Stretcher Accompanied By : electrical foreman Discharge Instructions Reviewed With, Opportunity For Questions Given : Patient Prescriptions Given to Patient : No DESIREE OLIVEIRA RN-PATIENT CARE BEDSIDE NON-EXEMPT - 12/21/2021 21:21 EDT documented in this encounter Plan of Treatment Not on file documented as of this encounter Visit Diagnoses Not on filedocumented in this encounter
--- OUTSIDE RECORDS SUMMARY | 2024-11-04 08:59 | XMS_ITS | Encounter Summary ---
Author Organization [employer] Address [address] [place] [address] Care Team Providers Care Oracle Erp Architect Name Role Phone Unavailable Primary Care Provider Unavailabl e Encounter Details Date Type Department Care Team (Late st Contact Info) Description 12/21/2021 Transcribed Document [facility] [place] Family Medicine [facility] [place] [address] ProviderBird MD [address] [place] [address] Social History Tobacco Use Types Packs/Day Years Used Date Smoking Tobacco: Never Assessed Comments Unknown Sex and Gender Information Value Date Recorded Sex Assigned at Not on file Legal Sex Female 2:53 PM CDT Gender Identity Not on file Sexual Orientation Not on file documented as of this encounter Miscellaneous Notes * Cerner Conversion Note - Bird Schilling MD - 12/21/2021 8:12 PM CDT Patient: EVARISTO LARIOS Age: 71 years Sex: Female : 1950 Associated Diagnoses: Knee effusion; Hip pain; DDD (degenerative disc disease), lumbar; Skin tear of lower leg without complication; Fall Author: CHUN CEDENO APRN Basic Information Additional information: Chief Complaint from Nursing Triage Note : Chief Complaint 12/21/2021 14:23 EDT Chief Complaint Pt arrived via ems from home c/o R knee and R lower extremity pain and skin tear s/p fall. . History of Present Illness The patient presents following fall. The onset was just prior to arrival. The occurrence was 1 episodes. The fall was described as tripped. The location where the incident occurred was at home. Location: Right lower extremity. The character of symptoms is pain and swelling. The degree at present is moderate. There are exacerbating factors including changing position, movement and standing. The relieving factor is immobilization. Risk factors consist of age and multiple medications. Therapy today: emergency medical services. Preceding symptoms none. Associated symptoms: none. Additional history: none. Patient is 71-year-old female with past history of lymphedema, GERD, coronary artery disease presents today with complaint of right knee pain and bilateral hip pain after the fall. Patient states she twisted the knee at home, causing the fall. She denies head injury, denies preceding chest pain, dizziness, shortness of breath. States fell previously and had pain in her left hip, this time the pain in her right hip. Review of Systems Constitutional symptoms: No fever, no chills, no decreased activity. Skin symptoms: No rash, Eye symptoms: Vision unchanged. ENMT symptoms: No sore throat, Respiratory symptoms: No shortness of breath, no cough. Cardiovascular symptoms: No chest pain, no syncope. Gastrointestinal symptoms: No abdominal pain, no vomiting, no diarrhea. Genitourinary symptoms: No dysuria, Musculoskeletal symptoms: Muscle pain, Joint pain, No back pain, Neurologic symptoms: No headache, no dizziness, no altered level of consciousness. Psychiatric symptoms: No anxiety, Endocrine symptoms: No polyuria, Hematologic/Lymphatic symptoms: Bleeding tendency negative, Allergy/immunologic symptoms: No recurrent infections, Health Status Allergies: Allergic Reactions (Selected) Severity Not Documented Macrobid- Itching. Tape- Rash and blisters.. Medications: (Selected) Prescriptions Prescribed Forteo 600 mcg/2.4 mL subcutaneous device: 20 mcg, SubCutaneous, Daily, 1 Kit [place] 10 mg-325 mg oral tablet: 1 Tab, Oral, Q4H, 40 Tab, PRN: for pain Documented Medications Documented ALPRAZolam: 0.5 mg, Oral, TID Joyce: 60 mg, Oral, Daily, as needed for allergies Bactrim: 800/160, Oral, BID Fish Oil 500 mg oral capsule: 2 Cap, Oral, Daily, hospital med Florastor: 250 mg, Oral, BID Oyst-Jameson-D: 500 mg + 200 units, Oral, BID, hospital med Vitamin D3: 1,000 Units, Oral, Daily, hospital med Xalatan 0.005% ophthalmic solution: 1 Drop, Eyes Both, At Bedtime, hospital Xarelto 20 mg oral tablet: 1 Tab, Oral, QPM, 30 Tab albuterol: 0.09 mg, Inhalation, QID, bronchial spasms, PRN: Spasms amitriptyline: 25 mg, Oral, At Bedtime bisoprolol: 2.5 mg, Oral, Daily cyclobenzaprine: 10 mg, Oral, BID furosemide: 40 mg, Oral, Daily, hospital med gabapentin: 300 mg, Oral, TID, hospital med multivitamin: 1 Tab, Oral, Daily, hospital med omeprazole: 20 mg, Oral, Daily, home l med potassium chloride 20 mEq oral tablet, extended release: 1 Tab, Oral, Daily, hospital med predniSONE: 15 mg, Oral, Daily, hospital med trazodone: 100 mg, Oral, PRN: Pain ursodiol 300 mg oral capsule: 1 Cap, Oral, BID, hospital med. Past Medical/ Family/ Social History Surgical history: tooth extration on 10/25/2013 at 63 Years. lumbar procedure bone cement and screws on 04/15/2013 at 63 Years. Comments: 08/16/2013 13:27 ELENA RICKETTS RN second surgery from fusion coming apart Lumbar Fusion on 04/01/2013 at 63 Years. Heart Cath in 2012 at 63 Years. Comments: 11/01/2013 18:53 PAN BELL RN patient reports Cath WDL Breast Biopsy in 2012 at 63 Years. D & C in 1997 at 48 Years. Open Cholecystectomy. Left Shoulder Rotator Cuff Repair. Bilateral Carpal Tunnel Surgery. Tubal Ligation. lung biopsy 2007. back surgery x 4 total. kyphoplasty 2013. mrsa in back e.coli./ mrsa debridemnet of wound.. Family history: No family history items have been selected or recorded.. Social history: Social & Psychosocial Habits Alcohol 06/22/2013 Alcohol Use in Last Twelve Months No 08/16/2013 Alcohol Use in Last Twelve Months No Employment/School 06/28/2013 Status: Retired Previous employment/school: Retired from [employer] Highest education: Some college Hazardous equipment operation: No Nutrition/Health 06/28/2013 Type of diet: Gluten Free Substance Abuse 06/28/2013 Recreational Drug Use History No Recreational Drug Use Last 12 Months No Tobacco 06/28/2013 Tobacco Use Within Last Twelve Months No . Problem list: Active Problems (31) Accidental fall Allergic rhinitis Anemia Arthritis Autoimmune Hepatitis Back pain Bruise Cataract Celiac disease Chest pain Chronic diarrhea Deep vein thrombosis GERD - Gastro-esophageal reflux disease Glaucoma Hemorrhoids Hepatitis Hepatitis Hiatal hernia High blood pressure history of ulcers in intestine Hyperlipidemia Impaired vision Incontinence On home oxygen therapy open lumbar wound with dressing intact. Osteoporosis Pneumonia Pulmonary fibrosis pulmonary fibrosis Syncope Urinary tract infection . Physical Examination Vital Signs Vital Signs/Vital Measures 12/21/2021 14:23 EDT Systolic Blood Pressure 152 mmHg HI Diastolic Blood Pressure 106 mmHg HI Temperature Source Oral Temperature Mode Fahrenheit Temperature, Fahrenheit 98.4 Deg F Clinical Temperature, C 36.9 Deg C Peripheral Pulse Rate 62 bpm Respiratory Rate 26 Breaths/Min HI Oxygen Saturation 94 % Oxygen Therapy Mode Room air . Measurements 12/21/2021 14:23 EDT Height Source Measured Height Entry Format [place] Height/Length, OCCITAN (ft) 5 ft Height/Length OCCITAN 8 Inch CLINICALHEIGHT 172.72 cm [place] Body Weight 63.45 kg Weight Source, ED Standing scale Weight Entry Format [place]on Weight [place] lb 271 lb CLINICALWEIGHT 123.18 kg Body Surface Area (BSA) 2.33 m2 Body Mass Index 41.3 kg/m2 >HHI . Oxygen Saturation 12/21/2021 14:23 EDT Oxygen Saturation 94 % . General: Alert, no acute distress. [place] coma scale: Total score: Total score: 15. Neurological: No focal neurological deficit observed. Skin: Warm, Wound(s): Shape irregular, Skin tear right anterior lower extremity. Head: Normocephalic. Neck: Supple. Eye: Sclera: not icteric. Ears, nose, mouth and throat: Oral mucosa moist. Cardiovascular: Regular rate and rhythm, No murmur, Normal peripheral perfusion, No edema. Respiratory: Lungs are clear to auscultation, respirations are non-labored, breath sounds are equal. Chest wall: No tenderness. Back: Nontender. Musculoskeletal: Normal ROM, normal strength, Tenderness to the right knee on palpation, normal range of motion, discoloration to the right lower extremity, patient states not new, due to her lymphedema. Gastrointestinal: Soft, Nontender, Non distended, Normal bowel sounds. Lymphatics: No lymphadenopathy. Psychiatric: Cooperative. Medical Decision Making Differential Diagnosis: Fall, laceration, abrasion. Orders Include Previous Orders (Selected) Inpatient Orders Ordered Consult to Dietitian: Completed CT Abdomen Pelvis WO: CT Knee RT WO: CT Lumbar Spine WO: acetaminophen: 650 mg, Oral, 1-Time ibuprofen: 600 mg, Oral, 1-Time Order tetanus/diphth/pertuss (Tdap) adult/adol 5 units-2.5 units-18.5 mcg/0.5 mL IM susp: 0.5 mL, IntraMuscular, 1-Time. Radiology results: Radiology Results (Last 48 hours) [id number] -- 12/21/2021 14:04 CT Abdomen Pelvis WO (12/21/2021 18:50) Result: CT LUMBAR SPINEHISTORY: Generalized back pain. Abdominal pain and right knee pain.Chronic falls..TECHNIQUE: Thin-section axial CT with sagittal and coronalreconstructions. This study was performed with techniques to keepradiation doses as low as reasonably achievable, (ALARA). Individualizeddose reduction techniques using automated exposure control or adjustmentof mA and/or kV according to the patient size were employed.COMPARISON: None.FINDINGS: There is normal alignment. There is no evidence of acutefracture. Kyphoplasty has been performed at T12, L1, L2 and L4. Thereare postoperative changes from laminectomy at L4-5 and L5-S1. Posteriorfixation with interpedicular screws extends from L2 through S1. Thereare severe degenerative changes with prominent anterior osteophytosisand ankylosis.IMPRESSION: Postoperative and degenerative changes. Multiplekyphoplasties, but no acute osseous abnormality. CT OF THE ABDOMEN AND PELVIS WITHOUT CONTRASTHISTORY: As abovePROCEDURE: Routine axial images were obtained from the lung bases tothe pubic symphysis. No contrast was given. This study was performedwith techniques to keep radiation doses as low as reasonably achievable,(ALARA). Individualized dose reduction techniques using automatedexposure control or adjustment of mA and/or kV according to the patientsize were employed.COMPARISON: None.FINDINGS: Abdomen: Gallbladder has been removed. Solid abdominal organs andureters are normal. The GI tract is unremarkable, including theappendix.Pelvis: There are calcified uterine fibroids. The uterus, ovaries andurinary bladder are otherwise normal for the patient's age. There is nopelvic or abdominal ascites, adenopathy, or acute osseous abnormality.IMPRESSION: No acute abnormalityCT OF THE RIGHT KNEEHISTORY: As above.TECHNIQUE: Thin-section axial images were obtained without contrast.Coronal and sagittal reconstructed images were obtained. This study wasperformed with techniques to keep radiation doses as low as reasonablyachievable, (ALARA). Individualized dose reduction techniques usingautomated exposure control or adjustment of mA and/or kV according tothe patient size were employed.COMPARISON: None.FINDINGS: There is a moderately large joint effusion. There is nofracture. There is severe osteoarthritis especially involving the medialcompartment. 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 CT Knee RT WO (12/21/2021 18:50) Result: CT LUMBAR SPINEHISTORY: Generalized back pain. Abdominal pain and right knee pain.Chronic falls..TECHNIQUE: Thin-section axial CT with sagittal and coronalreconstructions. This study was performed with techniques to keepradiation doses as low as reasonably achievable, (ALARA). Individualizeddose reduction techniques using automated exposure control or adjustmentof mA and/or kV according to the patient size were employed.COMPARISON: None.FINDINGS: There is normal alignment. There is no evidence of acutefracture. Kyphoplasty has been performed at T12, L1, L2 and L4. Thereare postoperative changes from laminectomy at L4-5 and L5-S1. Posteriorfixation with interpedicular screws extends from L2 through S1. Thereare severe degenerative changes with prominent anterior osteophytosisand ankylosis.IMPRESSION: Postoperative and degenerative changes. Multiplekyphoplasties, but no acute osseous abnormality. CT OF THE ABDOMEN AND PELVIS WITHOUT CONTRASTHISTORY: As abovePROCEDURE: Routine axial images were obtained from the lung bases tothe pubic symphysis. No contrast was given. This study was performedwith techniques to keep radiation doses as low as reasonably achievable,(ALARA). Individualized dose reduction techniques using automatedexposure control or adjustment of mA and/or kV according to the patientsize were employed.COMPARISON: None.FINDINGS: Abdomen: Gallbladder has been removed. Solid abdominal organs andureters are normal. The GI tract is unremarkable, including theappendix.Pelvis: There are calcified uterine fibroids. The uterus, ovaries andurinary bladder are otherwise normal for the patient's age. There is nopelvic or abdominal ascites, adenopathy, or acute osseous abnormality.IMPRESSION: No acute abnormalityCT OF THE RIGHT KNEEHISTORY: As above.TECHNIQUE: Thin-section axial images were obtained without contrast.Coronal and sagittal reconstructed images were obtained. This study wasperformed with techniques to keep radiation doses as low as reasonablyachievable, (ALARA). Individualized dose reduction techniques usingautomated exposure control or adjustment of mA and/or kV according tothe patient size were employed.COMPARISON: None.FINDINGS: There is a moderately large joint effusion. There is nofracture. There is severe osteoarthritis especially involving the medialcompartment. 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 CT Spine Lumbar WO (12/21/2021 18:50) Result: CT LUMBAR SPINEHISTORY: Generalized back pain. Abdominal pain and right knee pain.Chronic falls..TECHNIQUE: Thin-section axial CT with sagittal and coronalreconstructions. This study was performed with techniques to keepradiation doses as low as reasonably achievable, (ALARA). Individualizeddose reduction techniques using automated exposure control or adjustmentof mA and/or kV according to the patient size were employed.COMPARISON: None.FINDINGS: There is normal alignment. There is no evidence of acutefracture. Kyphoplasty has been performed at T12, L1, L2 and L4. Thereare postoperative changes from laminectomy at L4-5 and L5-S1. Posteriorfixation with interpedicular screws extends from L2 through S1. Thereare severe degenerative changes with prominent anterior osteophytosisand ankylosis.IMPRESSION: Postoperative and degenerative changes. Multiplekyphoplasties, but no acute osseous abnormality. CT OF THE ABDOMEN AND PELVIS WITHOUT CONTRASTHISTORY: As abovePROCEDURE: Routine axial images were obtained from the lung bases tothe pubic symphysis. No contrast was given. This study was performedwith techniques to keep radiation doses as low as reasonably achievable,(ALARA). Individualized dose reduction techniques using automatedexposure control or adjustment of mA and/or kV according to the patientsize were employed.COMPARISON: None.FINDINGS: Abdomen: Gallbladder has been removed. Solid abdominal organs andureters are normal. The GI tract is unremarkable, including theappendix.Pelvis: There are calcified uterine fibroids. The uterus, ovaries andurinary bladder are otherwise normal for the patient's age. There is nopelvic or abdominal ascites, adenopathy, or acute osseous abnormality.IMPRESSION: No acute abnormalityCT OF THE RIGHT KNEEHISTORY: As above.TECHNIQUE: Thin-section axial images were obtained without contrast.Coronal and sagittal reconstructed images were obtained. This study wasperformed with techniques to keep radiation doses as low as reasonablyachievable, (ALARA). Individualized dose reduction techniques usingautomated exposure control or adjustment of mA and/or kV according tothe patient size were employed.COMPARISON: None.FINDINGS: There is a moderately large joint effusion. There is nofracture. There is severe osteoarthritis especially involving the medialcompartment. 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 . Reexamination/ Reevaluation Time: 12/21/2021 20:16:00 . Vital signs per nurse's notes Notes: Discussed with patient diagnostic test results, differential diagnosis of the symptoms, treatment plan treatment plan, in detail adviseds, advised follow-up with primary care physician for further evaluation and management, also give patient specific instruction to return to the emergency department, if symptoms worsens. Impression and Plan Diagnosis Knee effusion - Discharge, Medical Hip pain - Discharge, Medical DDD (degenerative disc disease), lumbar - Discharge, Medical Skin tear of lower leg without complication - Discharge, Medical Fall - Discharge, Medical Plan Condition: Stable. Disposition: Discharged Admit/Transfer/Discharge: Discharge (Order): Start: 12/21/2021 20:17 EDT, Discharge to: Home. Patient was given the following educational materials: Knee Effusion, Fall Prevention in the Home, Adult, Skin Tear. Follow up with: LUIGI DIAS Within 2 to 3 days; JACKIE HAYDEN Within 2 to 3 days Call for follow up appointment with orthopaedics. Counseled: Patient, Regarding diagnosis, Regarding diagnostic results, Regarding treatment plan, Regarding prescription. Electronically signed by Jeane Dejesus Conversion Workers Compensation Specialist Cerner at 09/01/2022 7:47 PM CDT documented in this encounter Plan of Treatment Not on file documented as of this encounter Visit Diagnoses Not on filedocumented in this encounter
--- OUTSIDE RECORDS SUMMARY | 2024-11-04 08:59 | XMS_ITS | Encounter Summary ---
Author Organization [employer] Address [address] [place] [id number] Care Team Providers Care Armhole Feller Handstitching Machine Name Role Phone Unavailable Primary Care Provider Unavailabl e Encounter Details Date Type Department Care Team (Late st Contact Info) Description 12/21/2021 Transcribed Document [facility] Family Medicine [facility] [place] [address] ProviderBird MD [address] [place] [address] Social History Tobacco Use Types [...] MD - 12/21/2021 2:04 PM CDT ED Assessment Entered On: 12/21/2021 18:51 EDT Performed On: 12/21/2021 18:50 EDT by DESIREE OLIVEIRA RN-PATIENT CARE BEDSIDE NON-EXEMPT ED Quick Look Assessment Level of Consciousness : Alert Affect/Behavior : Appropriate, Calm, Cooperative Orientation : Oriented x 4 Skin Temperature : Warm Skin Description : Normal for ethnicity DESIREE OLIVEIRA RN-PATIENT CARE BEDSIDE NON-EXEMPT - 12/21/2021 18:50 EDT ED General-Functional Assess Information Obtained From : Patient Preferred Communication Mode : Verbal Communication Barrier : None Primary Language : Vincentian Any Spiritual/Cultural Needs or Requests : No Currently in Unsafe Situation : No DESIREE OLIVEIRA RN-PATIENT CARE BEDSIDE NON-EXEMPT - 12/21/2021 18:50 EDT Social Habits Smoking Status : Never (less than 100 in lifetime; none in last 30 days) Smokeless Tobacco Status : Never Desires Tobacco Cessation Calc : 0 OLIVEIRA, DESIREE, RN-PATIENT CARE BEDSIDE NON-EXEMPT - 12/21/2021 18:50 EDT Social History (As Of: 12/21/2021 18:51:52 EDT) Tobacco: Use in Last 12 Months: No. (Last Updated: 06/28/2013 22:40:49 EST by CORDELIA COOLEY, RN) Alcohol: Use in Last 12 Months: No. (Last Updated: 06/22/2013 15:35:57 EST by SHELLY SHELL, RN) Use in Last 12 Months: No. (Last Updated: 08/16/2013 13:35:21 EDT by ELENA MORFIN, JON) Substance Abuse: Drug Use Hx: No. Use in Last 12 Months: No. (Last Updated: 06/28/2013 22:40:33 EST by CORDELIA COOLEY, JON) Nutrition/Health: Gluten Free (Last Updated: 06/28/2013 22:40:44 EST by CORDELIA COOLEY, JON) Employment/School: Retired, Previous employment/school: Retired from [employer]. Highest education level: Some college. Operates hazardous equipment: No. (Last Updated: 06/28/2013 22:40:21 EST by CORDELIA COOLEY, JON) Musculoskeletal Musculoskeletal Assessment WDL : WDL with exceptions (Comment: Pt reports to ED with c/o RLE pain, knee pain, and skin tear s/p fall. [DESIREE OLIVEIRA RN-PATIENT CARE BEDSIDE NON-EXEMPT - 12/21/2021 18:50 EDT] ) DESIREE OLIVEIRA RN-PATIENT CARE BEDSIDE NON-EXEMPT - 12/21/2021 18:50 EDT documented in this encounter Plan of Treatment Not on file documented as of this encounter Visit Diagnoses Not on filedocumented in this encounter
--- OUTSIDE RECORDS SUMMARY | 2024-11-04 08:59 | XMS_ITS | Encounter Summary ---
Author Organization Healthcare Address [address] [id number] Care Team Providers Care Boardmarker Name Role Phone Elodia Quijano APRN Primary Care Provider [phone] Reason for Referral * Consultation (Routine) - Closed Specialty Diagnoses / Procedures Referred By Francisco J t Referred To Contact Nephrology Diagnoses Osteoporosis without current pathological fracture, unspecified osteoporosis type Elodia Quijano, RESULTS ENGINEER [address] [address] Phone: tel: fax: [facility] [address] [place] [id number] Phone: tel: fax: Referral ID Status Reason Start Date Expiration Date V isits Requested Visits Authorized [id number] Closed Specialty Services Required 03/09/2024 09/08/2025 1 1 Encounter Details Date Type Department Care Team (Latest Contact Info) Description 03/09/2024 [facility] [address] [place] [address] Elodia Quijano, RESULTS ENGINEER [address] [address] Osteoporosis without current pathological fracture, unspecified osteoporosis type (Primary Dx) Social History Tobacco Use Types [...] as of this encounter Plan of Treatment Scheduled Referrals Name Type Priority Associated Diagnoses Orde r Schedule Ambulatory referral to Nephrology Outpatient Referral Routine Osteoporosis without current pathological fracture, unspecified osteoporosis type Ordered: 03/09/2024 documented as of this encounter Visit Diagnoses Diagnosis Osteoporosis without current pathological fracture, unspecified osteoporosis type- Primary documented in this encounter Care Teams Boardmarker Relationship Specialty Start Date End Date Elodia Quijano APRN [address] [place] [address] PCP - General 09/29/20 documented as of this encounter
--- OUTSIDE RECORDS SUMMARY | 2024-11-04 08:59 | XMS_ITS | Encounter Summary ---
Author Organization [employer] Address [address] [place] [address] Care Team Providers Care News Producer Name Role Phone Unavailable Primary Care Provider Unavailabl e Encounter Details Date Type Department Care Team (Late st Contact Info) Description 12/21/2021 Transcribed Document [facility] [place] [facility] [place] [address] ProviderBird MD [facility] [place] [address] Social History Tobacco Use Types Packs/Day Years Used Date Smoking Tobacco: Never Assessed Comments Unknown Sex and Gender Information Value Date Recorded Sex Assigned at Not on file Legal Sex Female 2:53 PM CDT Gender Identity Not on file Sexual Orientation Not on file documented as of this encounter Miscellaneous Notes * Cerner Conversion Note - Bird Schilling MD - 12/21/2021 4:49 PM CDT Pain Assessment Entered On: 12/21/2021 18:52 EDT Performed On: 12/21/2021 18:51 EDT by DESIREE OLIVEIRA RN-PATIENT CARE BEDSIDE NON-EXEMPT Intervention Information: ibuprofen Performed by Hillary Zazueta RN on 12/21/2021 16:54:00 EDT ibuprofen,600mg Oral Pain Assessment Pain Assessment : Follow-up [...]
== END 2024-11-04 23:59 | disposition home or self-care (01) ==
LOC: RAD 08:57
PROVIDERS: PCP Internal Medicine Adolescent Medicine; Visit Provider Orthopaedic Surgery
DX: M19.012 Primary osteoarthritis, left shoulder (principal); M17.11 Unilateral primary osteoarthritis, right knee
CPT/HCPCS: 73030; 73562

== ENCOUNTER 2024-12-16 09:50 | Outpatient (CLI) | payer MEDICARE, SELFPAY ==
--- OUTSIDE RECORDS SUMMARY | 2016-10-01 13:37 | XMS_ITS | Encounter Summary ---
[facility] [address] [place] [address] Care Team Providers Care Wire Weaver Name Role Phone Federico Gomes MD Primary Care Provider [phone] Encounter Details Date Type Department Care Team (Late st Contact Info) Description 10/01/2016 1:37 PM EDT Hospital Encounter [facility] PULMONARY & CRITICAL CARE MEDICINE [address] [place] [phone] Social History Tobacco Use Types Packs/Day Years [...] on filedocumented in this encounter Care Teams Wire Weaver Relationship Specialty Start Date End Date Federico Gomes MD [address] [place] [facility] [address] [place] [address] PCP - General 08/10/15 documented as of this encounter
--- NOTE | 2024-12-16 09:51 | XR_ITS ---
FINAL REPORT CLINICAL HISTORY: right knee pain COMPARISON: 11/04/2024 FINDINGS: AP, lateral and oblique views of the right knee were obtained. There is no acute osseous abnormality of the right knee. Advanced degenerative joint disease is most pronounced in the medial compartment. The soft tissues are normal. There is no joint effusion. IMPRESSION: Advanced degenerative change without acute osseous abnormality of the right knee. Reviewed, Interpreted and Dictated by Genna Roche MD Transcribed by Amy Iverson Authenticated and [facility]
--- OUTSIDE RECORDS SUMMARY | 2024-12-16 09:53 | XMS_ITS | Encounter Summary ---
Author Organization [employer] ([place], [place], [place], [place]) Address [address] [place] [address] Care Team Providers Care Pediatric Anesthesiologist Name Role Phone Unavailable Primary Care Provider Unavailabl e Encounter Details Date Type Department Care Team (Late st Contact Info) Description 12/21/2021 Transcribed Document [facility] [address] [place] [address] ProviderBird MD [address] [place] [address] Social History Tobacco Use Types Packs/Day Years Used Date Smoking Tobacco: Never Assessed Comments Unknown Sex and Gender Information Value Date Recorded Sex Assigned at Not on file Legal Sex Female 2:53 PM CDT Gender Identity Not on file Sexual Orientation Not on file documented as of this encounter Miscellaneous Notes * Cerner Conversion Note - Bird ProviderMD - 12/21/2021 4:49 PM CDT Pain Assessment [...]
--- OUTSIDE RECORDS SUMMARY | 2024-12-16 09:53 | XMS_ITS | Clinical Summary ---
Author Organization [facility] Address [address] [place] [id number] Phone Care Team Providers Care Contact Person Name Role Phone Lusi Dotson MD [ ] Conditions or Problems Problem Name Problem Code Onset Date Status Entry Date Provider Comment Standard Description Annotate Cellulitis, lumbar 52698394 (SNOMED CT) 08/02 Active 08/02 Tanna Anderson Cellulitis of back, except buttock [facility] (current) use of suppressive antibiotics Z79.2 (ICD-10-CM ) 12/31 Active 12/31 Tanna Anderson [facility] (current) use of antibiotics Infection following a [...] the cause of diseases classified elsewhere Diarrhea 56126453 (SNOMED CT) 08/02 Inactive 08/02 Tanna Anderson Diarrhea Candidiasis of skin/Under Breasts B37.2 (ICD-10-CM ) 08/02 Inactive 08/02 Tanna Anderson Candidiasis of skin and nail Thrush 01105629 (SNOMED CT) 08/25 Inactive 08/25 Tanna Anderson Candidiasis 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 (ICD-10-CM ) 12/31 Active 12/31 Tanna Anderson Personal history of other infectious and parasitic diseases Hx of MRSA infection 054138665 (SNOMED CT) 12/31 Active 12/31 Tanna Anderson H/O: infectious disease MRSA 364292575 (SNOMED CT) 08/02 Inactive 08/02 Tanna Anderson Methicillin resistant Staphylococcus aureus infection Abscess, lumbar L02.212 (ICD-10-CM ) 06/28 Active 06/28 Diana Sher Cutaneous abscess of back [any part, except buttock] Cellulitis, LUMBAR 86179845 (SNOMED CT) 08/02 Inactive 08/02 Diana Sher Cellulitis of back, except buttock Thrush 77337767 (SNOMED CT) 08/25 Removed 08/25 Arline Orlando Candidiasis LUMBAR WOUND INFECTION 682.2 (ICD-9-CM) 08/02 Inactive 08/02 Lacie W Cellulitis and abscess of trunk MRSA 104280626 (SNOMED CT) 08/02 Removed 08/02 Lacie W Methicillin resistant Staphylococcus aureus infection MORGANELLA B96.89 (ICD-10-CM ) 08/02 Removed 08/02 Lacie W Other specified bacterial agents as the cause of diseases classified elsewhere Morbid obesity 088986306 (SNOMED CT) 08/02 Inactive 08/02 Lacei W Morbid obesity Candidiasis of skin/Under Breasts B37.2 (ICD-10-CM ) 08/02 Removed 08/02 Lacie W Candidiasis of skin and nail Diarrhea 01520774 (SNOMED CT) 08/02 Removed 08/02 Lacie W Diarrhea Medications Medication Instructions Start Date Stop Date Generic Name NDC Provider BACTRIM DS 800-160 MG TABS take 1 tab po BID SULFAMETHOXAZOLE- TRIMETHOPRIM [id number] Luis Dotson MD FORTAZ (IV) 12/25 FORTAZ (IV) Luis Dotson MD URSODIOL 500 MG TABS take 2000 mg po daily URSODIOL 20773644202 Luis Dotson MD BISOPROLOL FUMARATE 10 MG TABS 12/25 BISOPROLOL FUMARATE 71990741021 Luis Dotson MD HYDROCODONE-ACETAM INOPHEN 10-325 MG TABS take 1 tab po Q4H HYDROCODONE-ACETA MINOPHEN 70789771695 Luis Dotson MD ALPRAZOLAM 0.25 MG TABS take 1 tab po daily ALPRAZOLAM 57807827321 Luis Dotson MD GABAPENTIN 300 MG CAPS 12/25 GABAPENTIN 61507428758 Luis Dotson MD FLORASTOR CAPS 12/25 SACCHAROMYCES BOULARDII CAPS 71448786814 Luis Dotson MD PREDNISONE 1 MG TABS take 4mg po daily PREDNISONE 60341548999 Luis Dotson MD METHOTREXATE SODIUM (PF) 200 MG/8ML INJECTION SOLUTION 12/25 METHOTREXATE SODIUM 96945454627 Luis Dotson MD LEVOTHYROXINE SODIUM TABS take one 100 mg tablet by mouth daily LEVOTHYROXINE SODIUM TABS 85009431551 Heather S CYCLOBENZAPRINE HCL 10 MG TABS 06/26 CYCLOBENZAPRINE HCL 79430649377 Heather S LASIX TABS 60 mg by mouth daily FUROSEMIDE TABS 30392898119 Heather S FORTAZ (IV) 12/25 FORTAZ (IV) Luis Dotson MD LYRICA 150 MG CAPS bid PREGABALIN 57063945456 Luis Dotson MD ZEBETA 10 MG ORAL TABLET BISOPROLOL FUMARATE 09172935959 Luis Dotson MD PREDNISONE 1 MG TABS three tabs once a day 12/25 PREDNISONE 24286877479 Luis Dotson MD POTASSIUM CHLORIDE 20 MEQ PACK 12/07 POTASSIUM CHLORIDE 05330848110 Luis Dotson MD FORTEO SOLUTION 12/07 TERIPARATIDE (RECOMBINANT) SOLN 36148032484 Luis Dotson MD LOVENOX SOLUTION 12/07 ENOXAPARIN SODIUM SOLN 10335751270 Luis Dotson MD XARELTO 15 MG TABS 12/07 RIVAROXABAN 86871716694 Luis Dotson MD LEVOTHYROXINE SODIUM TABS 08/17 LEVOTHYROXINE SODIUM TABS 19813531477 Luis Dotson MD ESCITALOPRAM OXALATE TABS ESCITALOPRAM OXALATE TABS 03859515398 Luis Dotson MD BACTRIM DS 800-160 MG TABS Take one pill twice daily. 08/17 SULFAMETHOXAZOLE- TRIMETHOPRIM 94549914775 Luis Dotson MD XARELTO 10 MG TABS RIVAROXABAN 27775065085 Luis Dotson MD METHOTREXATE SODIUM (PF) 200 MG/8ML INJECTION SOLUTION 02/13 METHOTREXATE SODIUM 23162731643 Luis Dotson MD PREDNISONE TABS PREDNISONE TABS 81960799489 Luis Dotson MD BACTRIM DS 800-160 MG TABS 1 by mouth twice a day 01/07 SULFAMETHOXAZOLE- TRIMETHOPRIM 49083393767 Luis Dotson MD PREDNISONE (WILLIAMS) 10 MG TABS 12/07 PREDNISONE 99120460210 Luis Dotson MD XARELTO 10 MG TABS RIVAROXABAN 46497085743 Luis Dotson MD BACTRIM DS 800-160 MG TABS 1 by mouth twice a day 11/05 SULFAMETHOXAZOLE- TRIMETHOPRIM 70853673379 Luis Dotson MD LOVENOX SOLUTION 08/17 ENOXAPARIN SODIUM SOLN 33669287199 Hali Walker FORTEO SOLUTION 06/24 TERIPARATIDE (RECOMBINANT) SOLN 16502069962 Hali Walker EQL POTASSIUM GLUCONATE 595 (99 K) MG ORAL TABLET POTASSIUM GLUCONATE 96944799553 Hali Walker FLORASTOR CAPS 12/25 SACCHAROMYCES BOULARDII CAPS 68183496735 Hali Walker CYCLOBENZAPRINE HCL 10 MG TABS 06/26 CYCLOBENZAPRINE HCL 73788927713 Hali Walker OYST-DINESH D TABLET 08/25 CALCIUM CARBONATE-VITAMIN D TABS 49859236238 Hali Walker ALLERGY RELIEF 180 MG TABS 08/25 FEXOFENADINE HCL 62870525335 Hali Walker NUCYNTA 50 MG TABS 08/25 TAPENTADOL HCL 74974079650 Hali Walker TRAZODONE HCL 100 MG TABS 08/25 TRAZODONE HCL 98032264857 Hali Walker FORTAZ (IV) 08/25 FORTAZ (IV) Hali Walker BACTRIM DS 800-160 MG TABS 1 by mouth twice a day 09/08 SULFAMETHOXAZOLE- TRIMETHOPRIM 98097949299 Hali Walker BACTRIM DS 800-160 MG TABS 1 tab by mouth twice daily x 6 weeks 10/06 SULFAMETHOXAZOLE- TRIMETHOPRIM 04599658409 Luis Dotson MD NYSTATIN 902270 UNIT/ML SUSP 1 teaspoon by mouth four times daily; swish and swallow for oral thrush 09/08 NYSTATIN 11120547890 Luis Dotson MD BACTRIM DS 800-160 MG TABS 1 by mouth twice a day 09/08 SULFAMETHOXAZOLE- TRIMETHOPRIM 93954392184 Luis Dotson MD FORTAZ (IV) 08/25 FORTAZ (IV) Arline Orlando TRAZODONE HCL 100 MG TABS 08/25 TRAZODONE HCL 09041896637 Samy Hyde AMITRIPTYLINE HCL 25 MG TABS AMITRIPTYLINE HCL 16799971516 Samy Hyde D 1000 1000 UNIT ORAL TABLET CHOLECALCIFEROL 78235741986 Samy Hyde NUCYNTA 50 MG TABS 08/17 TAPENTADOL HCL 87996606102 Samy Hyde NADIRA ALLERGY 60 MG TABS FEXOFENADINE HCL 96530460512 Samy Hyde POTASSIUM CHLORIDE 20 MEQ PACK 08/17 POTASSIUM CHLORIDE 68622429705 Samy Hyde URSODIOL 300 MG CAPS 0 10/29 URSODIOL 24104350450 Samy Hyde GABAPENTIN 300 MG CAPS 0 11/16 GABAPENTIN 74807587874 Samy Hyde XALATAN 0.005 % SOLN LATANOPROST 14602543917 Samy Hyde VENTOLIN HFA AERS ALBUTEROL SULFATE AERS 03435965831 Samy Hyde FISH OIL 500 MG CAPS OMEGA-3 FATTY ACIDS 55108535301 Samy Hyde MULTIVITAMINS ORAL CAPSULE MULTIPLE VITAMIN 22030979859 Samy Hyde ALPRAZOLAM 0.5 MG TABS 08/17 ALPRAZOLAM 44219768072 Samy Hyde HYDROCODONE-ACETAM INOPHEN 5-325 MG TABS 12/25 HYDROCODONE-ACETA MINOPHEN 51743864431 Samy Hyde VALIUM 5 MG TABS 08/12 DIAZEPAM 10073779987 Samy Hyde ALAVERT 10 MG ORAL TABLET 08/12 LORATADINE 81638858076 Samy Hyde MICONAZOLE 7 2 % CREA 08/12 MICONAZOLE NITRATE 44179581066 Samy Hyde FORTEO 600 MCG/2.4ML SUBCUTANEOUS SOLUTION 08/12 TERIPARATIDE (RECOMBINANT) 91764591815 Samy Hyde PERCOCET 10-325 MG TABS 08/12 OXYCODONE-ACETAMI NOPHEN 95485603715 Samy Hyde VITAMIN D3 50 MCG (1999 UT) TABS 08/12 CHOLECALCIFEROL 83737745070 Samy Hyde SENNA TABS 08/12 SENNA TABS 89764528988 Samy Hyde REMERON 15 MG TABS 08/12 MIRTAZAPINE 84577332785 Samy Hyde BACTRIM DS 800-160 MG TABS 1 by mouth twice a day 08/25 SULFAMETHOXAZOLE- TRIMETHOPRIM 78046434149 Luis Dotson MD XARELTO 15 MG TABS 12/07 RIVAROXABAN 91191340918 Angélica Bryant BACLOFEN 10 MG TABS take 5 mg three times a day BACLOFEN 10523527267 Angélica Bryant BACTRIM DS 800-160 MG TABS 1 by mouth twice a day 08/18 SULFAMETHOXAZOLE- TRIMETHOPRIM 91958185862 Angélica Bryant BACTRIM DS 800-160 MG TABS 1 by mouth twice a day 08/18 SULFAMETHOXAZOLE- TRIMETHOPRIM 32497747745 Luis Dotson MD ROCEPHIN SOLR 2gm IV q 24 [facility] 08/04 CEFTRIAXONE SODIUM SOLR 11498422437 [facility] VANCOMYCIN HCL SOLR 1250mg IV q 12 [facility] 08/04 VANCOMYCIN HCL SOLR 91976512644 Arline Cranlori ROCEPHIN SOLR 2gm IV q 24 [facility] 08/04 CEFTRIAXONE SODIUM SOLR 93115331312 [facility] VANCOMYCIN HCL SOLR 1250mg IV q 12 [facility] 05/19 VANCOMYCIN HCL SOLR 02457653774 [facility] BISOPROLOL FUMARATE 10 MG TABS 12/25 BISOPROLOL FUMARATE 69708892326 Dominick Sarmiento LASIX TABS 06/26 FUROSEMIDE TABS 92556085979 Dominick Sarmiento ALLERGY RELIEF 180 MG TABS 11/16 FEXOFENADINE HCL 33270108351 Dominick Sarmiento PRILOSEC 20 MG ORAL CAPSULE DELAYED RELEASE OMEPRAZOLE 67025777671 Dominick Sarmiento REMERON 15 MG TABS 07/15 MIRTAZAPINE 90162092905 Dominick Sarmiento SENNA TABS 08/12 SENNA TABS 37833323047 Dominick Sarmiento VITAMIN D3 50 MCG (1999 [place]) TABS 08/12 CHOLECALCIFEROL 66980138389 Dominick Torsten OYST-DINESH D TABLET 08/25 CALCIUM CARBONATE-VITAMIN D TABS 01413804362 Dominick Torsten PERCOCET 10-325 MG TABS 08/17 OXYCODONE-ACETAMI NOPHEN 75827673211 Dominick Torsten FORTEO 600 MCG/2.4ML SUBCUTANEOUS SOLUTION 06/24 TERIPARATIDE (RECOMBINANT) 08771070343 Dominick Torsten PREDNISONE TABS PREDNISONE TABS 63695256616 Dominick Torsten MICONAZOLE 7 2 % CREA 11/16 MICONAZOLE NITRATE 54211195736 Dominick Torsten ALAVERT 10 MG ORAL TABLET 08/12 LORATADINE 56391358853 Dominick Torsten VALIUM 5 MG TABS 07/15 DIAZEPAM 85098108632 Dominick D Medications Administered No information available. [...] for B ACTRIM DS 800-160 TAB ESM_RR [id number]`MADY TRIM DS 800-160 TAB`800-160``60 Tablet`30`TAKE ONE TABLET BY MOUTH TWICE DAILY``1`0`05/19`01/04/20 16`[facility] 591*`[id number] `[id number]``S MZ/TMP DS 800-160 TAB Quantity: 60 Tablet Instructions: TAKE ONE TABLET BY MOUTH TWICE DAILY B e-Enevate alfredo vanessa refill request Lab Report: C-REACTIVE [...] smoking status SMOK STATUS Never smoker Toba advertising account representative smoking status Lab Report: SEDIMENTATION RA TE [...] Name Date Entry Date CPT-sl STAT Labs CPT-86862 CMP [id number] CBC with Differential 2016 CPT-29248 Sedimentation Rate (ESR) 201 11/23/08 CPT-86314 C- reactive protein CPT-92609 Hep C AB CPT-86607 C- reactive protein CPT-84854 Sedimentation Rate (ESR) 201 10/25/07 CPT-75367 CMP 86277 Hepatitis C Atb: (ICD 10 Code: Z11.59) 20 01/01/05 CPT-sl STAT Labs CPT-73090 Sedimentation Rate (ESR) 201 10/19/07 CPT-63098 C- reactive protein CPT-93996 CMP CPT-51118 CMP CPT-54723 C- reactive protein CPT-67190 CMP CPT-81454 C- reactive protein CPT-44596 Sedimentation Rate (ESR) 201 09/16/20 CPT-04907 BMP CPT-Cooral Continue oral antibiotics 20 29/09/20 CPT-17743 BMP CPT-Cooral Continue oral antibiotics 20 30/08/08 CPT-elgin New Oral Antibiotic CPT-Cooral Continue oral antibiotics 20 30/07/25 CPT-WC Redress Wound CPT-DC Discontinue IV antibiotics 2 CPT-elgin New Oral Antibiotic CPT-PICREM PICC Removal CPT-37431 BMP Vital Signs Date Name Value Unit [...]
--- OUTSIDE RECORDS SUMMARY | 2024-12-16 09:53 | XMS_ITS ---
Author Organization [facility] Care Team Providers Care Kiln Door Repairer Name Role Phone Allysno Quijano) Unavailable Unavail able Federico Gomes Unavailable Unavailable Allergies and adverse reactions Code CodeSystem Substance Reaction Severity StartDate Concern Status 7454 RXNORM Nitrofurantoin Skin reaction - finding (code- 820918873, SNOMED CT) Moderate 10/21/2018 active Gluten Unknown 10/21/2018 active 4053 RXNORM Erythromycin Skin reaction - finding (code- 136418615, SNOMED CT) Mild 10/21/2018 active Care Team Name Role Address Phone Organization Dates Federico Gomes PCP [address] [place] [address], [place], [address], [place] (Office): [facility] 10/21/2018 - 11/10/2018 Allyson Kidd) [place], [address], [place] (Office): : [facility] 10/21/2018 - 11/10/2018 Immunizations Immunization [...] completed tuberculin skin test; unspecified formulation lotNumber: [id number] expiry: 10/07/2020 Mfg: sanofi pasteur Given 0.1 [...] Concern Status 1 PULMONARY FIBROSIS, UNSPECIFIED 10/27/[address] active 2 ACUTE ANGLE-CLOSURE GLAUCOMA, UNSPECIFIED EYE 10/23/[address] active 3 ACUTE PAIN DUE TO TRAUMA 10/23/[address] active 4 AGE-RELATED OSTEOPOROSIS WITHOUT CURRENT PATHOLOGICAL FRACTURE 10/23/[address] active 5 AUTOIMMUNE HEPATITIS 10/23/[address] active 6 CALCULUS OF GALLBLADDER WITHOUT CHOLECYSTITIS WITHOUT OBSTRUCTION 10/23/[address] active 7 CELIAC DISEASE 10/23/[address] ac tive 8 CHRONIC PULMONARY EDEMA 10/23/[address] active 9 EDEMA, UNSPECIFIED 10/23/2018 035634120 SNOMED C T active 10 ESSENTIAL (PRIMARY) HYPERTENSION 10/23/[address] active 11 GASTRO-ESOPHAGEAL REFLUX DISEASE WITHOUT ESOPHAGITIS 10/23/[address] active 12 GENERALIZED ANXIETY DISORDER 10/23/[address] active 13 HYPERLIPIDEMIA, UNSPECIFIED 10/23/[address] active 14 IDIOPATHIC PULMONARY FIBROSIS 10/23/[address] active 15 INSOMNIA DUE TO MEDICAL CONDITION 10/23/[address] active 16 MILD PERSISTENT ASTHMA 10/23/[address] active 17 NEURALGIA AND NEURITIS, UNSPECIFIED 10/23/[address] active 18 OTHER SPECIFIED DISORDERS OF BONE DENSITY AND STRUCTURE, UNSPECIFIED SITE 10/23/[address] active 19 SCIATICA, UNSPECIFIED SIDE 10/23/[address] active 20 UNSPECIFIED COMBINED SYSTOLIC (CONGESTIVE) AND DIASTOLIC (CONGESTIVE) HEART FAILURE 10/23/[address] active 21 DIFFICULTY IN WALKING, NOT ELSEWHERE CLASSIFIED 10/22/[address] active 22 HISTORY OF FALLING 10/21/[address] active 23 HYPO-OSMOLALITY AND HYPONATREMIA 10/21/[address] active 24 HYPOTHYROIDISM, UNSPECIFIED 10/21/[address] active 25 MORBID (SEVERE) OBESITY DUE TO EXCESS CALORIES 10/21/[address] active 26 MUSCLE WEAKNESS (GENERALIZED) 10/21/[address] active 27 OTHER ABNORMALITIES OF GAIT AND MOBILITY 10/21/[address] active 28 RHABDOMYOLYSIS 10/21/[address] ac tive 29 ZOSTER WITHOUT COMPLICATIONS 10/21/[address] active Reason for Referral No Reasons for Referral Entered Social History Social History Observation Description Start Date End Date Code Code System Current Smoking Status Tobacco smoking consumption unknown 158968076 SNOMED CT Sex Assigned At Female 1950 68233-5 [facility] Gender Identity Vital Signs Code Code System Vitals Name Values and Units Timing Information 14764-4 [facility] Weight Qtpkh=824.8 Units=Lbs 9279-1 [facility] Respiratory Rate Value=18.0 Units=/m in 11/10/2018 8462-4 [facility] Blood Pressure-Diastolic Value=68 Un its=mmHg 11/10/2018 8480-6 [facility] Blood Pressure-Systolic Ycudv=792 Un its=mmHg 11/10/2018 8310-5 [facility] Body Temperature Value=97.6 Units= F 11/10/2018 8867-4 [facility] Heart rate Value=66.0 Units=/min 52947-4 [facility] O2 % BldC Oximetry Value=92.0 Units= % 11/10/2018 87912-5 [facility] Pain Level Value=0.0 11/10/2018 8302-2 [facility] Height Value=69.0 Units=Inches 10/23/2018
--- OUTSIDE RECORDS SUMMARY | 2024-12-16 09:53 | XMS_ITS | Encounter Summary ---
Author Organization [employer] ([place], [place], [place], [place]) Address [address] [place] [address] Care Team Providers Care Property Specialist Name Role Phone Unavailable Primary Care Provider Unavailabl e Encounter Details Date Type Department Care Team (Late st Contact Info) Description 12/21/[address] [facility] [place] Family Medicine [address] [place] [address] ProviderBird MD [address] [place] [address] Social History Tobacco Use Types Packs/Day Years Used Date Smoking Tobacco: Never Assessed Comments Unknown Sex and Gender Information Value Date Recorded Sex Assigned at Not on file Legal Sex Female 2:53 PM CDT Gender Identity Not on file Sexual Orientation Not on file documented as of this encounter Miscellaneous Notes * Cerner Conversion Note - Historical ProviderMD - 12/21/2021 8:19 PM CDT Electronically signed by Interface, [facility] Conversion Parts Product Analyst Cerner at 09/01/2022 7:39 PM CDT documented in this encounter Plan of Treatment Not on file documented as of this encounter Visit Diagnoses Not on filedocumented in this encounter
--- OUTSIDE RECORDS SUMMARY | 2024-12-16 09:53 | XMS_ITS | Encounter Summary ---
Author Organization [employer] ([place], [place], [place], [place]) Address [address] [place] [address] Care Team Providers Care Vendor Management Consultant Name Role Phone Unavailable Primary Care Provider Unavailabl e Encounter Details Date Type Department Care Team (Late st Contact Info) Description 12/21/2021 Transcribed Document [facility] [place] [address] [place] [address] ProviderBird MD [address] [place] [address] Social History Tobacco Use Types Packs/Day Years Used Date Smoking Tobacco: Never Assessed Comments Unknown Sex and Gender Information Value Date Recorded Sex Assigned at Not on file Legal Sex Female 2:53 PM CDT Gender Identity Not on file Sexual Orientation Not on file documented as of this encounter Miscellaneous Notes * Cerner Conversion Note - Bird ProviderMD - 12/21/2021 4:48 PM CDT Pain Assessment Entered On: 12/21/2021 18:52 EDT Performed On: 12/21/2021 18:51 EDT by DESIREE OLIVEIRA RN-PATIENT CARE BEDSIDE NON-EXEMPT Intervention Information: acetaminophen Performed by Hillary Zazueta RN on 12/21/2021 16:54:00 EDT acetaminophen,650mg [...]
--- OUTSIDE RECORDS SUMMARY | 2024-12-16 09:53 | XMS_ITS | Clinical Summary ---
Author Organization [employer] ([place], [place], [place], [place]) Address [address] [place] [address] Care Team Providers Care Nib Finisher Name Role Phone Unavailable Primary Care Provider [...]
--- OUTSIDE RECORDS SUMMARY | 2024-12-16 09:53 | XMS_ITS | Encounter Summary ---
Author Organization [employer] ([place], [place], [place], [place]) Address [address] [place] [address] Care Team Providers Care Grape Crusher Name Role Phone Unavailable Primary Care Provider Unavailabl e Encounter Details Date Type Department Care Team (Late st Contact Info) Description 12/21/2021 Transcribed Document [facility] [place] Medicine [address] [place] [address] ProviderBird MD [address] [place] [address] Social History Tobacco Use Types [...] Schilling MD - 12/21/2021 8:37 PM CDT [place] [id number] LARIOSEVARISTO LACY Farzad :1950 Visit Time:12/21/2021 Your Visit Summary Your [...] How Much When Instructions Next Dose acetaminophen-hydrocodone ([place] 10 mg-325 mg oral tablet) 1 Tablet(s) [...] and water are not available, use hand power line installer. ? Leave tape or skin adhesive strips [...] has healed. Medicines ??? Take or apply nmtw-hgc-xxnvhvr and prescription medicines only as told by [...] health care provider. ??? Take or apply beit-ngc-dyktzmw and prescription medicines only as told by your health care provider. ??? Contact a health care provider if you have signs of infection. This information is not intended to replace advice given to you by your health care provider. Make sure you discuss any questions you have with your health care provider. Document Revised: 08/09/2020 Document Reviewed: 08/09/2020 [employer] Patient Education ?? 2020 [employer] Fall Prevention in the Home, Adult [...] night-lights. ??? Place frequently used items in qwbx-jz-tuind places. Lower the shelves around your home [...] the way. ??? Do not use floor tongan or wax that makes floors slippery. If [...] include working with a physical therapist or rehab trainer to improve your strength, balance, and endurance. Where to find more information ??? Centers for Disease Control and Prevention, ROSA MARIA: https://www.cdc.gov ??? [employer] on Aging: https://vx9hfuw.kobe.nih.gov Contact a health care provider if: ??? [...] provider. Document Revised: 04/17/2018 Document Reviewed: 12/18/2017 [employer] Patient Education ?? 2020 [employer] Knee Effusion Knee effusion refers to [...] health care provider. General instructions ??? Take togj-khe-irujowv and prescription medicines only as told by [...] the knee (ligaments or cartilage). ??? Take amhh-jlt-pwmzgmr and prescription medicines only as told by [...] provider. Document Revised: 01/03/2021 Document Reviewed: 01/03/2021 [employer] Patient Education ?? 2020 [employer] Emergency Awareness and Preventative Care STROKE [...] Assistance with quitting is available by contacting 5-843-QWCHTintriNOW. This is a free resource providing counseling, support, and referral. Or you may contact your personal physician. [employer] Suicide Prevention Lifeline: The National Suicide Prevention [...] emergency, radiology, or pathology physicians. Patient Name:EVARISTO LARIOS I have received this information and was given the opportunity to ask questions. Patient/Conference Reservationist Name: Patient/Conference Reservationist Signature: Relationship to Patient: Clinician/Hospital Conference Reservationist Signature: Please Provide a Telephone Number Where You Can Be Reached: Is it Permissible To Leave a Message? Date: documented in this encounter Plan of Treatment Not on file documented as of this encounter Visit Diagnoses Not on filedocumented in this encounter
--- OUTSIDE RECORDS SUMMARY | 2024-12-16 09:53 | XMS_ITS | Encounter Summary ---
Author Organization [employer] ([place], [place], [place], [place]) Address [address] [place] [address] Care Team Providers Care Galley Boy Name Role Phone Unavailable Primary Care Provider Unavailabl e Encounter Details Date Type Department Care Team (Late st Contact Info) Description 12/21/2021 Transcribed Document [facility] [address] [place] [address] ProviderBird MD [address], [place] [id number] Social History Tobacco Use Types Packs/Day Years Used Date Smoking Tobacco: Never Assessed Comments Unknown Sex and Gender Information Value Date Recorded Sex Assigned at Not on file Legal Sex Female 2:53 PM CDT Gender Identity Not on file Sexual Orientation Not on file documented as of this encounter Miscellaneous Notes * Cerner Conversion Note - Bird ProviderMD - 12/21/2021 8:12 PM CDT Patient: EVARISTO [...] device: 20 mcg, SubCutaneous, Daily, 1 [place] 10 mg-325 mg oral tablet: 1 Tab, [...] 06/28/2013 Status: Retired Previous employment/school: Retired from [employer] Highest education: Some college Hazardous equipment operation: [...] EDT Height Source Measured Height Entry Format [place] Height/Length, VIET[place]ESE (ft) 5 ft Height/Length [place] 8 Inch CLINICALHEIGHT 172.72 cm [place] Body Weight 63.45 kg Weight Source, ED Standing scale Weight Entry Format [place] Weight Panamanian lb 271 lb CLINICALWEIGHT 123.18 kg Body Surface Area (BSA) 2.33 m2 Body Mass Index 41.3 kg/m2 >HHI . Oxygen Saturation 12/21/2021 14:23 EDT Oxygen Saturation 94 % . General: Alert, no acute distress. [place] coma scale: Total score: Total score: 15. [...] Radiology results: Radiology Results (Last 48 hours) [id number] -- 12/21/2021 14:04 CT Abdomen Pelvis WO [...] diagnostic results, Regarding treatment plan, Regarding prescription. documented in this encounter Plan of Treatment Not on file documented as of this encounter Visit Diagnoses Not on filedocumented in this encounter
--- OUTSIDE RECORDS SUMMARY | 2024-12-16 09:53 | XMS_ITS | Encounter Summary ---
Author Organization Healthcare Address [address] [place] [address] Care Team Providers Care Tobacco Stripper Hand Name Role Phone Elodia Quijano APRN Primary Care Provider [phone]- [phone] Encounter Details Date Type Department Care Team (Late st Contact Info) Description 01/29/2022 Community [facility] [address] [place] [address] Elodia Quijano APRN [address] [id number] Chronic infection of bone (CMS/HCC) (Primary Dx) [...] Primary documented in this encounter Care Teams Tobacco Stripper Hand Relationship Specialty Start Date End Date Elodia Quijano APRN [address] [address] PCP - General 09/29/20 documented as of this encounter
--- OUTSIDE RECORDS SUMMARY | 2024-12-16 09:53 | XMS_ITS | Encounter Summary ---
Author Organization [employer] ([place], [place], [place], [place]) Address [address] [place] [address] Care Team Providers Care Typewriter Ribbon Winder Name Role Phone Unavailable Primary Care Provider Unavailabl e Encounter Details Date Type Department Care Team (Late st Contact Info) Description 12/21/2021 Transcribed Document [facility] [place] [facility] [address] [place] [address] ProviderBird MD [address] [place] [address] Social History Tobacco Use Types [...] Bird ProviderMD - 12/21/2021 2:04 PM CDT ED Assessment [...] Communication Barrier : None Primary Language : Albanian Any Spiritual/Cultural Needs or Requests : No Currently in Unsafe Situation : No DESIREE OLIVEIRA RN-PATIENT CARE BEDSIDE NON-EXEMPT - 12/21/2021 18:50 EDT Social Habits Smoking Status : Never (less than 100 in lifetime; none in last 30 days) Smokeless Tobacco Status : Never Desires Tobacco Cessation Calc : 0 DESIREE OLIVEIRA RN-PATIENT CARE BEDSIDE NON-EXEMPT - 12/21/2021 18:50 EDT Social History (As Of: 12/21/2021 18:51:52 EDT) Tobacco: Use in Last 12 Months: No. (Last Updated: 06/28/2013 22:40:49 EST by CORDELIA COOLEY, RN) Alcohol: Use in Last 12 Months: No. (Last Updated: 06/22/2013 15:35:57 EST by SHELLY SHELL, RN) Use in Last 12 Months: No. (Last Updated: 08/16/2013 13:35:21 EDT by ELENA MORFIN RN) Substance Abuse: Drug Use Hx: No. Use in Last 12 Months: No. (Last Updated: 06/28/2013 22:40:33 EST by CORDELIA COOLEY, JON) Nutrition/Health: Gluten Free (Last Updated: 06/28/2013 22:40:44 EST by CORDELIA COOLEY, RN) Employment/School: Retired, Previous employment/school: Retired from [employer]. Highest education level: Some college. Operates hazardous [...]
--- OUTSIDE RECORDS SUMMARY | 2024-12-16 09:53 | XMS_ITS | Encounter Summary ---
Author Organization Healthcare Address [address] [id number] Care Team Providers Care Manager News Name Role Phone Elodia Quijano APRN Primary Care Provider [phone]- [phone] Reason for Referral * Consultation (Routine) - Closed Specialty Diagnoses / Procedures Referred By Francisco J t Referred To Contact Nephrology Diagnoses Osteoporosis without current pathological fracture, unspecified osteoporosis type Elodia Quijano, RECORDS SPECIALIST [address] [address] Phone: tel: fax: [facility] [address] [place] [phone] Phone: tel: fax: Referral ID Status Reason Start Date Expiration Date V isits Requested Visits Authorized [id number] Closed Specialty Services Required 03/09/2024 09/08/2025 1 1 Encounter Details Date Type Department Care Team (Latest Contact Info) Description 03/09/2024 Community [facility] Community [facility] [address] [place] [address] Elodia Quijano, RECORDS SPECIALIST [address] [address] Osteoporosis without current pathological fracture, unspecified osteoporosis [...] Primary documented in this encounter Care Teams Manager News Relationship Specialty Start Date End Date Elodia Quijano APRN [address] [place] [address] PCP - General 09/29/20 documented as of this encounter
--- OUTSIDE RECORDS SUMMARY | 2024-12-16 09:53 | XMS_ITS | Encounter Summary ---
Author Organization [employer] ([place], [place], [place], [place]) Address [address] [place] [address] Care Team Providers Care Mold Making Supervisor Name Role Phone Unavailable Primary Care Provider Unavailabl e Encounter Details Date Type Department Care Team (Late st Contact Info) Description 12/21/2021 Transcribed Document [facility] [place] [address] [place] [address] ProviderBird MD [address] [place], [place] [id number] Social History Tobacco Use Types Packs/Day Years Used Date Smoking Tobacco: Never Assessed Comments Unknown Sex and Gender Information Value Date Recorded Sex Assigned at Not on file Legal Sex Female 2:53 PM CDT Gender Identity Not on file Sexual Orientation Not on file documented as of this encounter Miscellaneous Notes * Cerner Conversion Note - Historical ProviderMD - 12/21/2021 2:04 PM CDT [place] [...]
--- OUTSIDE RECORDS SUMMARY | 2024-12-16 09:53 | XMS_ITS | Encounter Summary ---
Author Organization [employer] ([place], [place], [place], [place]) Address [address] [place] [address] Care Team Providers Care Application Operations Engineer Name Role Phone Unavailable Primary Care Provider Unavailabl e Encounter Details Date Type Department Care Team (Late st Contact Info) Description 12/21/2021 Transcribed Document [facility] [place] [facility] [place] [address] [place] [address] ProviderBird MD [address], [place] [id number] Social History Tobacco Use Types Packs/Day Years [...] applicable Nursing Documentation Completed : Yes DESIREE OLIVEIRA RN-PATIENT CARE BEDSIDE NON-EXEMPT - 12/21/2021 21:21 EDT ED Discharge Discharge To : Home with ambulatory/outpatient follow-up Name of Receiving Facility/Provider : [facility] Mode Of Departure : Stretcher Accompanied By : customer solutions supervisor Discharge Instructions Reviewed With, Opportunity For Questions Given : Patient Prescriptions Given to Patient : No DESIREE OLIVEIRA RN-PATIENT CARE BEDSIDE NON-EXEMPT - 12/21/2021 21:21 EDT documented in this encounter Plan of Treatment Not on file documented as of this encounter Visit Diagnoses Not on filedocumented in this encounter
--- OUTSIDE RECORDS SUMMARY | 2024-12-16 09:53 | XMS_ITS | Clinical Summary ---
Author Organization Healthcare Address [address] [place] [address] Care Team Providers Care Paper Cone Drying Machine Operator Name Role Phone Elodia Quijano [place] Primary Care Provider +1- [phone] Allergies Active Allergy Reactions Criticality Noted Date Comments Nitrofurantoin Itching Medium 05/20/2014 Wound Dressing Adhesive Unknown - Patien t states they do not know rxn details Low 05/20/2014 Medications Fexofenadine HCl (NADIRA ALLERGY PO) 1 (one) time each day. 5 Active Multiple Vitamins-Ford als (CENTRUM SILVER PO) 1 (one) time [...] MCG/ACT diskus inhaler 9 Active HYDROcodone-ac etaminophen ([place]) 10-325 MG tablet TAKE 1 TABLET EVERY [...] or (1 - 1-dose 75+ series) 02/04/2023 [id number] Vaccine (5 - 2023- season) 2024 04/06/2022, 04/25/2021, 08/16/2020, Additional history exists [facility]-Influenza Vaccine (#1) 01/17/202503/08, 03/13/2023, 03/20/2022, Additional history exists [facility]-DTaP,Tdap,and Td Vaccines (3 - Td or Tdap) 08/07/2032 08/07/2022, 12/21/2021, 07/21/1996 [facility]-Pneumococcal Vaccine: 50+ Years Completed 03/20/2022, 02/20/2017 [facility]-Obesity Intervention Completed 07/16/2024 HPV Vaccines Aged [...] patient's age to complete this topic Insurance MEDICARE Care Teams Paper Cone Drying Machine Operator Relationship Specialty Start Date End Date Elodia Quijano APRN [address] [place] [address] PCP - General 09/29/20
--- OUTSIDE RECORDS SUMMARY | 2024-12-16 09:53 | XMS_ITS | Clinical Summary ---
Author Organization [facility] Address [address] [place] [address] Care Team Providers Care Interpretive Naturalist Name Role Phone Federico Gomes MD Primary Care Provider [phone] Allergies Active Allergy Reactions Criticality Noted Date Comments Nitrofurantoin Monohyd Macro 016 Tape 02/29/2016 Medications alendronate (FOSAMAX) 40 MG tablet Take 40 mg by mouth Daily. 01/15/2014 Active ALPRAZolam (XANAX) 1 MG tablet Take 1 mg by mouth Daily. 09/14/2012 Active spironolactone (ALDACTONE) 25 MG tablet Take by mouth. 06/30/2015 Active [place]-3 Fatty Acids (EQL FISH OIL) 1000 MG capsule Take by mouth. 08/31/2014 Active predniSONE (DELTASONE) 2.5 MG tablet Take 1 mg by mouth 4 (Four) Times a Day. 12/16/2014 Active levocetirizine (XYZAL) 5 MG tablet Take by mouth. 01/02/2015 Active pregabalin (LYRICA) 150 MG capsule Take 150 mg by mouth 2 (Two) Times a Day. 12/27/2014 Active calcium (OS-DINESH) 600 MG tablet Take by mouth. 08/31/2014 Active ursodiol (ACTIGALL) 300 MG capsule Take by mouth. 09/30/2012 Active Potassium 75 MG tablet Take by mouth. 08/31/2014 Active Cholecalciferol 2000 UNITS capsule Take by mouth. 08/31/2014 Active escitalopram (LEXAPRO) 20 MG tablet Take 20 mg by mouth Daily. 08/31/2014 Active fexofenadine (NADIRA ALLERGY) 180 MG tablet Take 180 mg by mouth Daily. 08/31/2014 Active sulfamethoxazol e-trimethoprim (BACTRIM DS) 800-160 MG per tablet Take 1 tablet by mouth Daily. 08/31/2014 Active amitriptyline (ELAVIL) 50 MG tablet Take 50 mg by mouth Every Night. 08/31/2012 Active bisoprolol-hydr ochlorothiazide (ZIAC) 10-6.25 MG per tablet Take 1 tablet by mouth Daily. 01/17/2015 Active cyclobenzaprine (FLEXERIL) 10 MG tablet Take 10 mg by mouth 2 (Two) Times a Day As Needed. 08/31/2014 Active baclofen (LIORESAL) 10 MG tablet Take by mouth. 08/31/2014 Active traZODone (DESYREL) 100 MG tablet Take by mouth. 09/14/2012 Active O2 (OXYGEN) Oxygen; Patient Sig: Oxygen the patient deferred night time O2 at present.; 1; 0; -Aug-2014; Active 08/31/2014 Active multivitamin (THERAGRAN) tablet tablet Take by mouth. 08/31/2014 Active omeprazole OTC (PRILOSEC OTC) 20 MG EC tablet Take 20 mg by mouth Daily. 08/31/2014 Active fluticasone (FLONASE) 50 MCG/ACT nasal spray 2 sprays into the nostril(s) as directed by provider Daily. 11/24/2017 Active furosemide (LASIX) 20 MG tablet Take 20 mg by mouth Daily. 10/27/2017 Active HYDROcodone-zeus taminophen (NORCO) 10-325 MG per tablet Take 2 tablets by mouth Every 6 (Six) Hours As Needed. 11/18/2017 Active latanoprost (XALATAN) 0.005 % ophthalmic solution 11/24/2017 Active levothyroxine (SYNTHROID, LEVOTHROID) 100 MCG tablet Take 100 mcg by mouth Daily. 10/16/2017 Active Active Problems Problem Noted Date Diagnosed Date GERD 12/11/2017 Nocturnal hypoxemia 12/26/2016 Chronic hypoxic respiratory failure 10/01/2016 Morbid Obesity (BMI 45) 10/01/2016 Atypical chest pain Overview (02/29/2016): a. Cardiolite stress test, 12/12/2004: No evidence of inducible ischemia, normal EF. b. Echocardiogram, 11/22/2004: EF 57%, RVSP 23 mmHg, no valvular wall motion or structural abnormalities. c. Echocardiogram, 07/08/2006: Normal EF, left atrium at 2.8 cm. d. Myocardial perfusion study, 07/08/2006: No evidence of inducible ischemia, normal EF. e. Echocardiogram, 06/19/2010: Normal LV, EF of 55% to 60%, trace aortic regurgitation, mild MR, mild TR. RVSP 29.4. Trace pulmonic regurgitation. Left ventricular chamber slightly dilated. f. Myocardial perfusion study, 04/29/2011: Normal left ventricular systolic function, Dr. Zayas. g. Echocardiogram, 04/08/2013, Dr. Barry Clark: Normal size left ventricle, normal left ventricular wall thickness, EF 60 plus or minus 5%, normal left ventricular systolic function, normal diastolic function for age. Moderate tricuspid 2+ regurgitation, moderate pulmonary hypertension. No masses or thrombi seen. h. Left heart catheterization/right heart catheterization, 04/10/2013, Dr. Barry Clark: EF greater than 60%, normal coronaries, minor pulmonary hypertension. Palpitations Abnormal heart rhythm Overview (02/29/2016): Reported history of abnormal heart rhythm after back surgery in 2012, with subsequent left heart catheterization as noted above. Diastolic heart failure Overview (02/29/2016): A. ECHOCARDIOGRAM 08/10/2015- LVEF 55% to 60% with no evidence of Diastolic Heart Failure. Trace MR and Mild TR Hypertension Hyperlipidemia Celiac disease Osteoporosis Arthritis Anemia Anxiety Depression Autoimmune hepatitis Gout Glaucoma Hypothyroidism MRSA (methicillin resistant Staphylococcus aureu s) Hyponatremia Family History Medical History Relation Name Comments COPD Mother Diabetes Mother Thyroid disease Mother Relation Name Status Comments Father (Age 36) MURDERED Mother Social History Tobacco Use Types Packs/Day Years [...] Recorded Current Living Arrangements Not on file 1001/2023 Potentially Unsafe Housing Conditions Not on kati [...] Sign Reading Time Taken Comments Blood Pressure 140/82 12/11/2017 3:26 PM EDT Pulse 79 12/11/2017 3:26 PM EDT Temperature 36.2 C (97.2 F) 12/11/2017 3:26 PM EDT Respiratory Rate 18 12/11/2017 3:26 PM EDT Oxygen Saturation 92% 12/11/2017 3:26 PM EDT Inhaled Oxygen Concentration - - Weight 133 kg (292 lb 6 oz) 12/11/2017 3:26 PM E DT Height 167.6 cm (5' 6 ) 12/11/2017 3:26 PM EDT Body Mass Index 47.19 12/11/2017 3:26 PM EDT Plan of Treatment Health Maintenance Due Date Last Done Comments DXA SCAN 1950 LIPID PANEL 1950 Pneumococcal Vaccine 50+ (1 of 2 - PCV) 02/04/1967 TDAP/TD VACCINES (1 - Tdap) 02/04/1967 COLOGUARD 02/04/1993 COLON CANCER SCREENING 5 YEAR SIGMOIDOSCOPY 02/04/1993 COLONOSCOPY 02/04/1993 COLORECTAL CANCER SCREENING 02/04/1993 CT COLONOGRAPHY 02/04/1993 FECAL OCCULT BLOOD TEST 02/04/1993 FIT Testing (1 year) 02/04/1993 ZOSTER VACCINE (1 of 2) 02/04/1998 ANNUAL WELLNESS VISIT 08/19/2016 HEPATITIS C SCREENING 08/19/2016 RSV Vaccine - Adults (1 - 1-dose 75+ series) 3 COVID-19 Vaccine ( - 2023-25 season) 2024 INFLUENZA VACCINE 02/16/2025 Insurance [place] [id number] [facility] A & B Care Teams Interpretive Naturalist Relationship Specialty Start Date End Date Federico Gomes MD [address] [facility] [address] [place] [address] PCP - General 08/10/15
--- OUTSIDE RECORDS SUMMARY | 2024-12-16 09:53 | XMS_ITS | Referral Summary ---
Author Organization [employer] ([place], [place], [place], [place]) Address [address] [place] [address] Care Team Providers Care Machine Shop Lead Man Name Role Phone Unavailable Primary Care Provider [...]
--- OUTSIDE RECORDS SUMMARY | 2024-12-16 09:53 | XMS_ITS | Encounter Summary ---
Author Organization [employer] ([place], [place], [place], [place]) Address [address] [place] [address] Care Team Providers Care Restaurant Line Cook Name Role Phone Unavailable Primary Care Provider Unavailabl e Encounter Details Date Type Department Care Team (Late st Contact Info) Description 12/21/2021 Transcribed Document [facility] [place] [address] [place] [address] ProviderBird MD [address] [place] [address] Social History Tobacco Use Types [...] ProviderMD - 12/21/2021 2:04 PM CDT ED Triage [...] - Non - Urgent Tracking Group : [facility] Allyson Ko RN - 12/21/2021 14:23 EDT Mode of Arrival : Ambulatory Transported to ED by : Ambulance/ALS EMS Service : [facility] To Room Via : Stretcher Accompanied By [...] ; Reactions: Rash, Blisters ; Created By: CALOS FERGUSON; Reaction Status: Active ; Category: Other ; Substance: Tape ; Type: Allergy ; Updated By: CALOS FERGUSON; Reviewed Date: 12/21/2021 14:24 EDT Diagnosis Control ED (As Of: 12/21/2021 14:26:21 EDT) Problems(Active) Accidental fall (SNOMED CT :355649776 ) Name of Problem: Accidental fall ; Recorder: CALOS FERGUSON; Confirmation: Confirmed ; Classification: Medical ; Code: [id number] ; Contributor System: PowerChart ; Last Updated: 11/02/2013 11:43 EDT ; Life Cycle Date: 11/02/2013 ; Life Cycle Status: Active ; Vocabulary: SNOMED CT ; Comments: 11/02/2013 11:43 - CALOS FERGUSON FELL 10-29-13 INJURED LOW BACK HIPS Allergic rhinitis (SNOMED CT :514943394 ) Name of Problem: Allergic rhinitis ; Recorder: MICHAELA MIRANDA RN; Confirmation: Confirmed ; Classification: Medical ; Code: [id number] ; Contributor System: RideApartChart ; Last Updated: 10/28/2013 19:26 EDT ; Life Cycle Date: 06/07/2013 ; Life Cycle Status: Active ; Vocabulary: SNOMED CT Anemia (SNOMED CT :741198520 ) Name of Problem: Anemia ; Recorder: MICHAELA MIRANDA RN; Confirmation: Confirmed ; Classification: Medical ; Code: 977352705 ; Contributor System: RideApartChart ; Last Updated: 10/28/2013 19:26 EDT ; Life Cycle Date: 06/07/2013 ; Life Cycle Status: Active ; Vocabulary: SNOMED CT Arthritis (SNOMED CT :8704478 ) Name of Problem: Arthritis ; Recorder: MICHAELA MIRANDA RN; Confirmation: Confirmed ; Classification: Medical ; Code: [id number] ; Contributor System: PowerChart ; Last Updated: 10/28/2013 19:26 EDT ; Life Cycle Date: 06/07/2013 ; Life Cycle Status: Active ; Vocabulary: SNOMED CT Autoimmune Hepatitis (SNOMED CT :6333014979 ) Name of Problem: Autoimmune Hepatitis ; Recorder: MICHAELA MIRANDA RN; Confirmation: Confirmed ; Classification: Medical ; Code: [id number] ; Contributor System: PowerChart ; Last Updated: 11/05/2013 10:09 EDT ; Life Cycle Date: 06/07/2013 ; Life Cycle Status: Active ; Vocabulary: SNOMED CT Back pain (PNED :[id number] ) Name of Problem: Back pain ; Recorder: MICHAELA MIRANDA RN; Confirmation: Confirmed ; Classification: Medical ; Code: [id number] ; Contributor System: PowerChart ; Last Updated: 11/01/2013 9:11 EDT ; Life Cycle Date: 06/07/2013 ; Life Cycle Status: Active ; Vocabulary: PNED Bruise (SNOMED CT :714483179 ) Name of Problem: Bruise ; Recorder: CALOS FERGUSON; Confirmation: Confirmed ; Classification: Medical ; Code: [id number] ; Contributor System: PowerChart ; Last Updated: [...] Vocabulary: Patient Care Celiac disease (SNOMED CT :8870064982 ) Name of Problem: Celiac disease ; Recorder: MICHAELA MIRANDA RN; Confirmation: Confirmed ; Classification: Medical ; Code: 2213865331 ; Contributor System: PowerChart ; Last Updated: 10/28/2013 19:26 EDT ; Life Cycle Date: 06/07/2013 ; Life Cycle Status: Active ; Vocabulary: SNOMED CT Chest pain (SNOMED CT :86532884 ) Name of Problem: Chest pain ; Recorder: CALOS FERGUSON; Confirmation: Confirmed ; Classification: Medical ; Code: 76413177 ; Contributor System: PowerChart ; Last Updated: 11/02/2013 12:58 EDT ; Life Cycle Date: 11/02/2013 ; Life Cycle Status: Active ; Vocabulary: SNOMED CT ; Comments: 11/02/2013 12:59 - CALOS FERGUSON told due to lung problem weekly Chronic diarrhea (SNOMED CT :602175513 ) Name of Problem: Chronic diarrhea ; Recorder: ELENA MORFIN RN; Confirmation: Confirmed ; Classification: Medical ; Code: 893956718 ; Contributor System: PowerChart ; Last Updated: 11/01/2013 8:34 EDT ; Life Cycle Date: 08/16/2013 ; Life Cycle Status: Active ; Vocabulary: SNOMED CT Deep vein thrombosis (SNOMED CT :979433520 ) Name of Problem: Deep vein thrombosis ; Recorder: ELENA MORFIN RN; Confirmation: Confirmed ; Classification: Medical ; Code: 085432547 ; Contributor System: PowerChart ; Last Updated: 11/04/2013 16:51 EDT ; Life Cycle Date: 08/16/2013 ; Life Cycle Status: Active ; Vocabulary: SNOMED CT ; Comments: 08/16/2013 13:20 - ELENA MORFIN RN left leg GERD - Gastro-esophageal reflux disease (SNOMED CT :9376402761 ) Name of Problem: GERD - Gastro-esophageal reflux disease ; Recorder: MICHAELA MIRANDA RN; Confirmation: Confirmed ; Classification: Medical ; Code: [id number] ; Contributor System: PowerChart ; Last Updated: [...] ; Vocabulary: Patient Care Hemorrhoids (SNOMED CT :713158829 ) Name of Problem: Hemorrhoids ; Recorder: MICHAELA MIRANDA RN; Confirmation: Confirmed ; Classification: Medical ; Code: 431889616 ; Contributor System: PowerChart ; Last Updated: 10/28/2013 19:26 EDT ; Life Cycle Date: 06/07/2013 ; Life Cycle Status: Active ; Vocabulary: SNOMED CT Hepatitis (SNOMED CT :271189965 ) Name of Problem: Hepatitis ; Recorder: MICHAELA MIRANDA RN; Confirmation: Confirmed ; Classification: Medical ; Code: 522021343 ; Contributor System: PowerChart ; Last Updated: 10/28/2013 19:26 EDT ; Life Cycle Date: 06/07/2013 ; Life Cycle Status: Active ; Vocabulary: SNOMED CT ; Comments: 06/07/2013 11:39 - MICHAELA MIRANDA RN autoimmune hepatitis Hepatitis (SNOMED CT :855865623 ) Name of Problem: Hepatitis ; Recorder: ELENA MORFIN RN; Confirmation: Confirmed ; Classification: Medical ; Code: 964577073 ; Contributor System: RideApartChart ; Last Updated: 11/01/2013 13:34 EDT ; Life Cycle Date: 08/16/2013 ; Life Cycle Status: Active ; Vocabulary: SNOMED CT ; Comments: 08/16/2013 13:23 - ELENA MORFIN RN auto immune hepatitis Hiatal hernia (SNOMED CT :834821808 ) Name of Problem: Hiatal hernia ; Recorder: ELENA MORFIN RN; Confirmation: Confirmed ; Classification: Medical ; Code: 062217949 ; Contributor System: RideApartChart ; Last Updated: 11/01/2013 8:28 EDT ; Life Cycle Date: 08/16/2013 ; Life Cycle Status: Active ; Vocabulary: SNOMED CT High blood pressure (SNOMED CT :17141467 ) Name of Problem: High blood pressure ; Recorder: MICHAELA MIRANDA RN; Confirmation: Confirmed ; Classification: Medical ; Code: 71346266 ; Contributor System: RideApartChart ; Last Updated: 10/28/2013 19:26 EDT ; Life Cycle Date: 06/07/2013 ; Life Cycle Status: Active ; Vocabulary: SNOMED CT history of ulcers in intestine (SNOMED CT :988242687 ) Name of Problem: history of ulcers in intestine ; Onset Date: 05/17/2013 ; Recorder: MICHAELA MIRANDA RN; Confirmation: Confirmed ; Classification: Medical ; Code: 421678416 ; Contributor System: RideApartChart ; Last Updated: 04/14/2019 14:13 EST ; Life Cycle Date: 06/07/2013 ; Life Cycle Status: Active ; Vocabulary: SNOMED CT Hyperlipidemia (SNOMED CT :99239219 ) Name of Problem: Hyperlipidemia ; Recorder: ELENA MORFIN RN; Confirmation: Confirmed ; Classification: Medical ; Code: 82267411 ; Contributor System: PowerChart ; Last Updated: 11/01/2013 8:27 EDT ; Life Cycle Date: 08/16/2013 ; Life Cycle Status: Active ; Vocabulary: SNOMED CT Impaired vision (SNOMED CT :24023600 ) Name of Problem: Impaired vision ; Recorder: MICHAELA MIRANDA RN; Confirmation: Confirmed ; Classification: Medical ; Code: 91068742 ; Contributor System: PowerChart ; Last Updated: 10/28/2013 19:26 EDT ; Life Cycle Date: 06/07/2013 ; Life Cycle Status: Active ; Vocabulary: SNOMED CT Incontinence (SNOMED CT :36292742 ) Name of Problem: Incontinence ; Recorder: ELENA MORFIN RN; Confirmation: Confirmed ; Classification: Medical ; Code: 81939431 ; Contributor System: PowerChart ; Last Updated: 11/02/2013 11:12 EDT ; Life Cycle Date: 08/16/2013 ; Life Cycle Status: Active ; Vocabulary: SNOMED CT On home oxygen therapy (SNOMED CT :3091347333 ) Name of Problem: On home oxygen therapy ; Recorder: CALOS FERGUSON; Confirmation: Confirmed ; Classification: Medical ; Code: 5511517737 ; Contributor System: PowerChart ; Last Updated: 11/02/2013 12:32 EDT ; Life Cycle Date: 11/02/2013 ; Life Cycle Status: Active ; Vocabulary: SNOMED CT open lumbar wound with dressing intact. (SNOMED CT :06923367 ) Name of Problem: open lumbar wound with dressing intact. ; Recorder: ELENA MORFIN RN; Confirmation: Confirmed ; Classification: Medical ; Code: 04333948 ; Contributor System: PowerChart ; Last Updated: 04/14/2019 15:33 EST ; Life Cycle Date: 08/16/2013 ; Life Cycle Status: Active ; Vocabulary: SNOMED CT ; Comments: 08/16/2013 14:33 - ELENA MORFIN RN patient states she was culterecd with c-diff and MRSA positive 11/02/2013 11:30 - CALOS FERGUSON resolved Osteoporosis (SNOMED CT :382099603 ) Name of Problem: Osteoporosis ; Recorder: MICHAELA MIRANDA RN; Confirmation: Confirmed ; Classification: Medical ; Code: 132707474 ; Contributor System: PowerChart ; Last Updated: 10/28/2013 19:26 EDT ; Life Cycle Date: 06/07/2013 ; Life Cycle Status: Active ; Vocabulary: SNOMED CT Pneumonia (SNOMED CT :859413691 ) Name of Problem: Pneumonia ; Recorder: MICHAELA MIRANDA RN; Confirmation: Confirmed ; Classification: Medical ; Code: 737666555 ; Contributor System: PowerChart ; Last Updated: 10/28/2013 19:26 EDT ; Life Cycle Date: 06/07/2013 ; Life Cycle Status: Active ; Vocabulary: SNOMED CT pulmonary fibrosis (SNOMED CT :49758345 ) Name of Problem: pulmonary fibrosis ; Onset Date: 08/16/2006 ; Recorder: ELENA MORFIN RN; Confirmation: Confirmed ; Classification: Medical ; Code: 64504901 ; Contributor System: PowerChart ; Last Updated: 11/04/2013 16:51 EDT ; Life Cycle Date: 08/16/2013 ; Life Cycle Status: Active ; Vocabulary: SNOMED CT Pulmonary fibrosis (SNOMED CT :62213069 ) Name of Problem: Pulmonary fibrosis ; Recorder: WESLEY GUTIERREZ RN; Confirmation: Confirmed ; Classification: Patient Stated ; Code: 10602018 ; Contributor System: PowerChart ; Last Updated: 10/28/2013 19:26 EDT ; Life Cycle Date: 04/01/2013 ; Life Cycle Status: Active ; Vocabulary: SNOMED CT Syncope (SNOMED CT :723029140 ) Name of Problem: Syncope ; Recorder: MICHAELA MIRANDA RN; Confirmation: Confirmed ; Classification: Medical ; Code: 929253198 ; Contributor System: PowerChart ; Last Updated: 10/28/2013 19:26 EDT ; Life Cycle Date: 06/07/2013 ; Life Cycle Status: Active ; Vocabulary: SNOMED CT Urinary tract infection (SNOMED CT :891035011 ) Name of Problem: Urinary tract infection ; Recorder: MICHAELA MIRANDA RN; Confirmation: Confirmed ; Classification: Medical ; Code: 033293019 ; Contributor System: PowerChart ; Last Updated: [...] PNED ; Probability: 0 ; Diagnosis Code: [id number] Leg pain-swelling Date: 12/21/2021 ; Diagnosis Type: Reason For Visit ; Confirmation: Complaint of ; Clinical Dx: Leg pain-swelling ; Classification: Medical ; Clinical Service: Non-Specified ; Code: PNED ; Probability: 0 ; Diagnosis Code: [id number] ED Height and Weight Height Source : Measured Height Entry Format : [place] Height, Feet : 5 ft(Converted to: 152 cm, 60 Inch) Height, Inches : 8 Inch(Converted to: 0 ft 8 Inch, 20.32 cm) Clinical Height : 172.72 cm Weight Source, ED : Standing scale Weight Entry Format : [place] Weight, Pounds : 271 lb Clinical Dosing Weight : 123.18 kg Body Surface Area (BSA) : 2.33 m2 Body Mass Index : 41.3 kg/m2 (>HHI) [place] Body Weight (IBW) : 63.45 kg Allyson Ko RN - 12/21/2021 14:23 EDT documented in this encounter Plan of Treatment Not on file documented as of this encounter Visit Diagnoses Not on filedocumented in this encounter
--- NOTE | 2024-12-16 10:21 | XR_ITS ---
FINAL REPORT CLINICAL HISTORY: right shoulder pain best images possible COMPARISON: 03/14/2020 FINDINGS: Four views of the right shoulder were obtained. There is no fracture or dislocation. Degenerative joint disease is most pronounced at the acromioclavicular joint. Soft tissues are unremarkable. IMPRESSION: Degenerative changes without acute osseous abnormality of the right shoulder. Reviewed, Interpreted and Dictated by Genna Roche MD Transcribed by Amy Iverson Authenticated and [facility]
== END 2024-12-16 23:59 | disposition home or self-care (01) ==
LOC: RAD 09:51
PROVIDERS: PCP Nurse Practitioner Family; Visit Provider Physician Assistant
DX: M19.011 Primary osteoarthritis, right shoulder (principal); M17.11 Unilateral primary osteoarthritis, right knee
CPT/HCPCS: 73030; 73562

== ENCOUNTER 2025-01-06 14:58 | Outpatient (CLI) | payer MEDICARE, SELFPAY ==
--- OUTSIDE RECORDS SUMMARY | 2016-10-01 13:37 | XMS_ITS | Encounter Summary ---
[facility] Address [address] [place] [address] Care Team Providers Care Casework Specialist Name Role Phone Federico Gomes MD Primary Care Provider [phone] Encounter Details Date Type Department Care Team (Late st Contact Info) Description 10/01/2016 1:37 PM EDT Hospital Encounter [facility] PULMONARY & CRITICAL CARE MEDICINE [address] [place] [phone] Social History Tobacco Use Types Packs/Day Years [...] on filedocumented in this encounter Care Teams Casework Specialist Relationship Specialty Start Date End Date Federico Gomes MD [address] [place] [facility] [address] [place] [address] PCP - General 08/10/15 documented as of this encounter
--- OUTSIDE RECORDS SUMMARY | 2025-01-06 15:01 | XMS_ITS | Encounter Summary ---
Author Organization [email or web address] ([place], [place], [place], [place]) Address [address] [place] [address] Care Team Providers Care Head Tennis Coach Name Role Phone Unavailable Primary Care Provider Unavailabl e Encounter Details Date Type Department Care Team (Late st Contact Info) Description 12/21/2021 Transcribed Document [facility] [facility] [place] [address] [place] [address] ProviderBird MD [address] [place] [address] Social History Tobacco Use Types [...] 8:19 PM CDT Electronically signed by Interface, [facility] Conversion Blast Furnace Checker Cerner at 09/01/2022 7:39 PM CDT documented in this encounter Plan of Treatment Not on file documented as of this encounter Visit Diagnoses Not on filedocumented in this encounter
--- OUTSIDE RECORDS SUMMARY | 2025-01-06 15:01 | XMS_ITS | Encounter Summary ---
Author Organization [employer] ([place], [place], [place], [place]) Address [address] [place] [address] Care Team Providers Care Ham Stripper Name Role Phone Unavailable Primary Care Provider Unavailabl e Encounter Details Date Type Department Care Team (Late st Contact Info) Description 12/21/2021 Transcribed Document [facility] [place] [address] [place] [address] ProviderBird MD [address] [place] [address] Social History Tobacco Use Types [...] Schilling MD - 12/21/2021 8:37 PM CDT [place] [id number] LARIOSEVARISTO LACY Farzad :1950 Visit Time:12/21/2021 Your [...] How Much When Instructions Next Dose acetaminophen-hydrocodone (Randolph 10 mg-325 mg oral tablet) 1 Tablet(s) [...] and water are not available, use hand script editor. ? Leave tape or skin adhesive strips [...] has healed. Medicines ??? Take or apply hefd-qce-eypimho and prescription medicines only as told by [...] health care provider. ??? Take or apply sxno-lqu-qjumvkc and prescription medicines only as told by your health care provider. ??? Contact a health care provider if you have signs of infection. This information is not intended to replace advice given to you by your health care provider. Make sure you discuss any questions you have with your health care provider. Document Revised: 08/09/2020 Document Reviewed: 08/09/2020 [employer] Patient Education ?? 2020 [employer] Fall Prevention in the Home, Adult [...] night-lights. ??? Place frequently used items in urgz-ho-kuvji places. Lower the shelves around your home [...] the way. ??? Do not use floor japanese or wax that makes floors slippery. If [...] include working with a physical therapist or human resources trainer to improve your strength, balance, and endurance. Where to find more information ??? Centers for Disease Control and Prevention, ROSA MARIA: https://www.cdc.gov ??? National [place] on Aging: https://hz7uzuh.kobe.nih.gov Contact a health care provider if: ??? [...] Reviewed: 12/18/2017 Elsevier Patient Education ?? 2020 [employer] Knee Effusion Knee effusion refers to [...] health care provider. General instructions ??? Take haqi-vwt-eemqyeo and prescription medicines only as told by [...] the knee (ligaments or cartilage). ??? Take yvzk-vey-khwmset and prescription medicines only as told by [...] provider. Document Revised: 01/03/2021 Document Reviewed: 01/03/2021 [employer] Patient Education ?? 2020 [employer] Emergency Awareness and Preventative Care STROKE [...] Assistance with quitting is available by contacting 4-824-CXVECute AttackNOW. This is a free resource providing counseling, support, and referral. Or you may contact your personal physician. [place] Suicide Prevention Lifeline: The National Suicide Prevention [...] was given the opportunity to ask questions. Patient/Head Silverman Name: Patient/Head Silverman Signature: Relationship to Patient: Clinician/Hospital Head Silverman Signature: Please Provide a Telephone Number Where You Can Be Reached: Is it Permissible To Leave a Message? Date: documented in this encounter Plan of Treatment Not on file documented as of this encounter Visit Diagnoses Not on filedocumented in this encounter
--- OUTSIDE RECORDS SUMMARY | 2025-01-06 15:01 | XMS_ITS | Encounter Summary ---
Author Organization [employer] ([place], [place], [place], [place]) Address [address] [place] [address] Care Team Providers Care Nursing Service Administrator Name Role Phone Unavailable Primary Care Provider Unavailabl e Encounter Details Date Type Department Care Team (Late st Contact Info) Description 12/21/2021 Transcribed Document [facility] [place] [address] [place] [address] ProviderBird MD [address] [place] [address] Social History Tobacco Use Types [...]
--- OUTSIDE RECORDS SUMMARY | 2025-01-06 15:01 | XMS_ITS | Encounter Summary ---
Author Organization [employer] ([place], [place], [place], [place]) Address [address] [place] [address] Care Team Providers Care Environmental Advisor Name Role Phone Unavailable Primary Care Provider Unavailabl e Encounter Details Date Type Department Care Team (Late st Contact Info) Description 12/21/2021 Transcribed Document [facility] [place] [address] [place] [address] ProviderBird MD [address] [place] [address] Social History Tobacco Use Types [...]
--- OUTSIDE RECORDS SUMMARY | 2025-01-06 15:02 | XMS_ITS | Encounter Summary ---
Author Organization [employer] ([place], [place], [place], [place]) Address [address] [place] [address] Care Team Providers Care [employer] Principal Name Role Phone Unavailable Primary Care Provider Unavailabl e Encounter Details Date Type Department Care Team (Late st Contact Info) Description 12/21/2021 Transcribed Document [facility] [place] [address] [place] [address] ProviderBird MD [address] [id number] Social History Tobacco Use Types Packs/Day Years [...] Of Departure : Stretcher Accompanied By : parking worker Discharge Instructions Reviewed With, Opportunity For Questions Given : Patient Prescriptions Given to Patient : No DESIREE OLIVEIRA RN-PATIENT CARE BEDSIDE NON-EXEMPT - 12/21/2021 21:21 EDT documented in this encounter Plan of Treatment Not on file documented as of this encounter Visit Diagnoses Not on filedocumented in this encounter
--- OUTSIDE RECORDS SUMMARY | 2025-01-06 15:02 | XMS_ITS | Clinical Summary ---
Author Organization [employer] ([place], [place], [place], [place]) Address [address] [place] [address] Care Team Providers Care Account Contact Associate Name Role Phone Unavailable Primary Care Provider [...]
--- OUTSIDE RECORDS SUMMARY | 2025-01-06 15:02 | XMS_ITS | Encounter Summary ---
Author Organization [email or web address] ([place], [place], [place], [place]) Address [address] [place] [address] Care Team Providers Care Side Boss Name Role Phone Unavailable Primary Care Provider Unavailabl e Encounter Details Date Type Department Care Team (Late st Contact Info) Description 12/21/2021 Transcribed Document [facility] [place] Family Medicine [address] [place] [address] ProviderBird MD [address] [place] [address] Social History Tobacco Use Types [...] - Non - Urgent Tracking Group : [facility] ED [facility] Allyson Ko RN - 12/21/2021 14:23 EDT Mode of Arrival : Ambulatory Transported to ED by : Ambulance/ALS EMS Service : [facility] To Room Via : Stretcher Accompanied [...] 14:26:21 EDT) Problems(Active) Accidental fall (SNOMED CT :495777810 ) Name of Problem: Accidental fall ; Recorder: CALOS FERGUSON; Confirmation: Confirmed ; Classification: Medical ; Code: [id number] ; Contributor System: PowerChart ; Last Updated: 11/02/2013 11:43 EDT ; Life Cycle Date: 11/02/2013 ; Life Cycle Status: Active ; Vocabulary: SNOMED CT ; Comments: 11/02/2013 11:43 - CALOS FERGUSON FELL 10-29-13 INJURED LOW BACK HIPS Allergic rhinitis (SNOMED CT :623852790 ) Name of Problem: Allergic rhinitis ; Recorder: MICHAELA MIRANDA RN; Confirmation: Confirmed ; Classification: Medical ; Code: 572871766 ; Contributor System: AnimocaChart ; Last Updated: 10/28/2013 19:26 EDT ; Life Cycle Date: 06/07/2013 ; Life Cycle Status: Active ; Vocabulary: SNOMED CT Anemia (SNOMED CT :605504977 ) Name of Problem: Anemia ; Recorder: MICHAELA MIRANDA RN; Confirmation: Confirmed ; Classification: Medical ; Code: 966880117 ; Contributor System: AnimocaChart ; Last Updated: 10/28/2013 19:26 EDT ; Life Cycle Date: 06/07/2013 ; Life Cycle Status: Active ; Vocabulary: SNOMED CT Arthritis (SNOMED CT :2162879 ) Name of Problem: Arthritis ; Recorder: MICHAELA MIRANDA RN; Confirmation: Confirmed ; Classification: Medical ; Code: 4910057 ; Contributor System: PowerChart ; Last Updated: 10/28/2013 19:26 EDT ; Life Cycle Date: 06/07/2013 ; Life Cycle Status: Active ; Vocabulary: SNOMED CT Autoimmune Hepatitis (SNOMED CT :6600522817 ) Name of Problem: Autoimmune Hepatitis ; Recorder: MICHAELA MIRANDA RN; Confirmation: Confirmed ; Classification: Medical ; Code: 8024620112 ; Contributor System: PowerChart ; Last Updated: 11/05/2013 10:09 EDT ; Life Cycle Date: 06/07/2013 ; Life Cycle Status: Active ; Vocabulary: SNOMED CT Back pain (PNED :[id number] ) Name of Problem: Back pain ; Recorder: MICHAELA MIRANDA RN; Confirmation: Confirmed ; Classification: Medical ; Code: [id number] ; Contributor System: PowerChart ; Last Updated: 11/01/2013 9:11 EDT ; Life Cycle Date: 06/07/2013 ; Life Cycle Status: Active ; Vocabulary: PNED Bruise (SNOMED CT :166745322 ) Name of Problem: Bruise ; Recorder: CALOS FERGUSON; Confirmation: Confirmed ; Classification: Medical ; Code: 647406829 ; Contributor System: PowerChart ; Last Updated: [...] Vocabulary: Patient Care Celiac disease (SNOMED CT :9313211541 ) Name of Problem: Celiac disease ; Recorder: MICHAELA MIRANDA RN; Confirmation: Confirmed ; Classification: Medical ; Code: 1121493973 ; Contributor System: PowerChart ; Last Updated: 10/28/2013 19:26 EDT ; Life Cycle Date: 06/07/2013 ; Life Cycle Status: Active ; Vocabulary: SNOMED CT Chest pain (SNOMED CT :86908982 ) Name of Problem: Chest pain ; Recorder: CALOS FERGUSON; Confirmation: Confirmed ; Classification: Medical ; Code: 41408658 ; Contributor System: PowerChart ; Last Updated: 11/02/2013 12:58 EDT ; Life Cycle Date: 11/02/2013 ; Life Cycle Status: Active ; Vocabulary: SNOMED CT ; Comments: 11/02/2013 12:59 - CALOS FERGUSON told due to lung problem weekly Chronic diarrhea (SNOMED CT :237689054 ) Name of Problem: Chronic diarrhea ; Recorder: ELENA MORFIN RN; Confirmation: Confirmed ; Classification: Medical ; Code: 913545338 ; Contributor System: PowerChart ; Last Updated: 11/01/2013 8:34 EDT ; Life Cycle Date: 08/16/2013 ; Life Cycle Status: Active ; Vocabulary: SNOMED CT Deep vein thrombosis (SNOMED CT :611432360 ) Name of Problem: Deep vein thrombosis ; Recorder: ELENA MORFIN RN; Confirmation: Confirmed ; Classification: Medical ; Code: 471588199 ; Contributor System: PowerChart ; Last Updated: 11/04/2013 16:51 EDT ; Life Cycle Date: 08/16/2013 ; Life Cycle Status: Active ; Vocabulary: SNOMED CT ; Comments: 08/16/2013 13:20 - ELENA MORFIN RN left leg GERD - Gastro-esophageal reflux disease (SNOMED CT :8402627172 ) Name of Problem: GERD - Gastro-esophageal reflux disease ; Recorder: MICHAELA MIRANDA RN; Confirmation: Confirmed ; Classification: Medical ; Code: 6832620752 ; Contributor System: PowerChart ; Last Updated: [...] ; Vocabulary: Patient Care Hemorrhoids (SNOMED CT :370016612 ) Name of Problem: Hemorrhoids ; Recorder: MICHAELA MIRANDA RN; Confirmation: Confirmed ; Classification: Medical ; Code: 895126671 ; Contributor System: PowerChart ; Last Updated: 10/28/2013 19:26 EDT ; Life Cycle Date: 06/07/2013 ; Life Cycle Status: Active ; Vocabulary: SNOMED CT Hepatitis (SNOMED CT :050127497 ) Name of Problem: Hepatitis ; Recorder: MICHAELA MIRANDA RN; Confirmation: Confirmed ; Classification: Medical ; Code: 378456724 ; Contributor System: PowerChart ; Last Updated: 10/28/2013 19:26 EDT ; Life Cycle Date: 06/07/2013 ; Life Cycle Status: Active ; Vocabulary: SNOMED CT ; Comments: 06/07/2013 11:39 - MICHAELA MIRANDA RN autoimmune hepatitis Hepatitis (SNOMED CT :294954867 ) Name of Problem: Hepatitis ; Recorder: ELENA MORFIN RN; Confirmation: Confirmed ; Classification: Medical ; Code: 668426989 ; Contributor System: AnimocaChart ; Last Updated: 11/01/2013 13:34 EDT ; Life Cycle Date: 08/16/2013 ; Life Cycle Status: Active ; Vocabulary: SNOMED CT ; Comments: 08/16/2013 13:23 - ELENA MORFIN RN auto immune hepatitis Hiatal hernia (SNOMED CT :319301115 ) Name of Problem: Hiatal hernia ; Recorder: ELENA MORFIN RN; Confirmation: Confirmed ; Classification: Medical ; Code: 907546207 ; Contributor System: AnimocaChart ; Last Updated: 11/01/2013 8:28 EDT ; Life Cycle Date: 08/16/2013 ; Life Cycle Status: Active ; Vocabulary: SNOMED CT High blood pressure (SNOMED CT :60685292 ) Name of Problem: High blood pressure ; Recorder: MICHAELA MIRANDA RN; Confirmation: Confirmed ; Classification: Medical ; Code: 97309870 ; Contributor System: AnimocaChart ; Last Updated: 10/28/2013 19:26 EDT ; Life Cycle Date: 06/07/2013 ; Life Cycle Status: Active ; Vocabulary: SNOMED CT history of ulcers in intestine (SNOMED CT :735778612 ) Name of Problem: history of ulcers in intestine ; Onset Date: 05/17/2013 ; Recorder: MICHAELA MIRANDA RN; Confirmation: Confirmed ; Classification: Medical ; Code: 758588727 ; Contributor System: AnimocaChart ; Last Updated: 04/14/2019 14:13 EST ; Life Cycle Date: 06/07/2013 ; Life Cycle Status: Active ; Vocabulary: SNOMED CT Hyperlipidemia (SNOMED CT :83006719 ) Name of Problem: Hyperlipidemia ; Recorder: ELENA MORFIN RN; Confirmation: Confirmed ; Classification: Medical ; Code: 03132184 ; Contributor System: PowerChart ; Last Updated: 11/01/2013 8:27 EDT ; Life Cycle Date: 08/16/2013 ; Life Cycle Status: Active ; Vocabulary: SNOMED CT Impaired vision (SNOMED CT :12534496 ) Name of Problem: Impaired vision ; Recorder: MICHAELA MIRANDA RN; Confirmation: Confirmed ; Classification: Medical ; Code: 14631742 ; Contributor System: PowerChart ; Last Updated: 10/28/2013 19:26 EDT ; Life Cycle Date: 06/07/2013 ; Life Cycle Status: Active ; Vocabulary: SNOMED CT Incontinence (SNOMED CT :96083088 ) Name of Problem: Incontinence ; Recorder: ELENA MORFIN RN; Confirmation: Confirmed ; Classification: Medical ; Code: 23174295 ; Contributor System: PowerChart ; Last Updated: 11/02/2013 11:12 EDT ; Life Cycle Date: 08/16/2013 ; Life Cycle Status: Active ; Vocabulary: SNOMED CT On home oxygen therapy (SNOMED CT :9909749722 ) Name of Problem: On home oxygen therapy ; Recorder: CALOS FERGUSON; Confirmation: Confirmed ; Classification: Medical ; Code: 6892172804 ; Contributor System: PowerChart ; Last Updated: 11/02/2013 12:32 EDT ; Life Cycle Date: 11/02/2013 ; Life Cycle Status: Active ; Vocabulary: SNOMED CT open lumbar wound with dressing intact. (SNOMED CT :29924790 ) Name of Problem: open lumbar wound with dressing intact. ; Recorder: ELENA MORFIN RN; Confirmation: Confirmed ; Classification: Medical ; Code: 65491916 ; Contributor System: PowerChart ; Last Updated: 04/14/2019 15:33 EST ; Life Cycle Date: 08/16/2013 ; Life Cycle Status: Active ; Vocabulary: SNOMED CT ; Comments: 08/16/2013 14:33 - ELENA MORFIN RN patient states she was culterecd with c-diff and MRSA positive 11/02/2013 11:30 - CALOS FERGUSON resolved Osteoporosis (SNOMED CT :849103376 ) Name of Problem: Osteoporosis ; Recorder: MICHAELA MIRANDA RN; Confirmation: Confirmed ; Classification: Medical ; Code: 601734459 ; Contributor System: PowerChart ; Last Updated: 10/28/2013 19:26 EDT ; Life Cycle Date: 06/07/2013 ; Life Cycle Status: Active ; Vocabulary: SNOMED CT Pneumonia (SNOMED CT :661919526 ) Name of Problem: Pneumonia ; Recorder: MICHAELA MIRANDA RN; Confirmation: Confirmed ; Classification: Medical ; Code: 661942621 ; Contributor System: PowerChart ; Last Updated: 10/28/2013 19:26 EDT ; Life Cycle Date: 06/07/2013 ; Life Cycle Status: Active ; Vocabulary: SNOMED CT pulmonary fibrosis (SNOMED CT :23643733 ) Name of Problem: pulmonary fibrosis ; Onset Date: 08/16/2006 ; Recorder: ELENA MORFIN RN; Confirmation: Confirmed ; Classification: Medical ; Code: 46326766 ; Contributor System: PowerChart ; Last Updated: 11/04/2013 16:51 EDT ; Life Cycle Date: 08/16/2013 ; Life Cycle Status: Active ; Vocabulary: SNOMED CT Pulmonary fibrosis (SNOMED CT :82961517 ) Name of Problem: Pulmonary fibrosis ; Recorder: WESLEY GUTIERREZ RN; Confirmation: Confirmed ; Classification: Patient Stated ; Code: 46155444 ; Contributor System: PowerChart ; Last Updated: 10/28/2013 19:26 EDT ; Life Cycle Date: 04/01/2013 ; Life Cycle Status: Active ; Vocabulary: SNOMED CT Syncope (SNOMED CT :545659100 ) Name of Problem: Syncope ; Recorder: MICHAELA MIRANDA RN; Confirmation: Confirmed ; Classification: Medical ; Code: 277196265 ; Contributor System: PowerChart ; Last Updated: 10/28/2013 19:26 EDT ; Life Cycle Date: 06/07/2013 ; Life Cycle Status: Active ; Vocabulary: SNOMED CT Urinary tract infection (SNOMED CT :696974462 ) Name of Problem: Urinary tract infection ; Recorder: MICHAELA MIRANDA RN; Confirmation: Confirmed ; Classification: Medical ; Code: 542253697 ; Contributor System: PowerChart ; Last Updated: [...] PNED ; Probability: 0 ; Diagnosis Code: [id number] Leg pain-swelling Date: 12/21/2021 ; Diagnosis Type: Reason For Visit ; Confirmation: Complaint of ; Clinical Dx: Leg pain-swelling ; Classification: Medical ; Clinical Service: Non-Specified ; Code: PNED ; Probability: 0 ; Diagnosis Code: [id number] ED Height and Weight Height Source : Measured Height Entry Format : [place] Height, Feet : 5 ft(Converted to: 152 cm, 60 Inch) Height, Inches : 8 Inch(Converted to: 0 ft 8 Inch, 20.32 cm) Clinical Height : 172.72 cm Weight Source, ED : Standing scale Weight Entry Format : [place] Weight, Pounds : 271 lb Clinical Dosing Weight : 123.18 kg Body Surface Area (BSA) : 2.33 m2 Body Mass Index : 41.3 kg/m2 (>HHI) [place] Body Weight (IBW) : 63.45 kg Allyson Ko RN - 12/21/2021 14:23 EDT documented in this encounter Plan of Treatment Not on file documented as of this encounter Visit Diagnoses Not on filedocumented in this encounter
--- OUTSIDE RECORDS SUMMARY | 2025-01-06 15:02 | XMS_ITS | Encounter Summary ---
Author Organization Healthcare Address [address] [id number] Care Team Providers Care Harvest Contractor Name Role Phone Elodia Quijano APRN Primary Care Provider [phone] Reason for Referral * Consultation (Routine) - Closed Specialty Diagnoses / Procedures Referred By Francisco J t Referred To Contact Nephrology Diagnoses Osteoporosis without current pathological fracture, unspecified osteoporosis type Elodia Quijano, CONSUMER EXPERIENCE CONSULTANT [address] [address] Phone: tel: fax: [facility] [address] [place] [address] Phone: tel: fax: Referral ID Status Reason Start Date Expiration Date V isits Requested Visits Authorized [id number] Closed Specialty Services Required 03/09/2024 09/08/2025 1 1 Encounter Details Date Type Department Care Team (Latest Contact Info) Description 03/09/2024 Community [facility] Community Practice [address] [place] [address] Elodia Quijano, CONSUMER EXPERIENCE CONSULTANT [address] [address] Osteoporosis without current pathological fracture, unspecified osteoporosis [...] Primary documented in this encounter Care Teams Harvest Contractor Relationship Specialty Start Date End Date Elodia Quijano APRN [address] [place] [address] PCP - General 09/29/20 documented as of this encounter
--- OUTSIDE RECORDS SUMMARY | 2025-01-06 15:02 | XMS_ITS | Clinical Summary ---
Author Organization Healthcare Address [address] [place] [address] Care Team Providers Care Sewer Inspector Name Role Phone Elodia Quijano [place] Primary Care Provider [phone] Allergies Active Allergy Reactions Criticality Noted Date Comments Nitrofurantoin Itching Medium 05/20/2014 Wound Dressing Adhesive Unknown - Patien t states they do not know rxn details Low 05/20/2014 Medications Fexofenadine HCl (NADIRA ALLERGY PO) 1 (one) time each day. 5 Active Multiple Vitamins-[place] als (CENTRUM SILVER PO) 1 (one) time [...] MCG/ACT diskus inhaler 9 Active HYDROcodone-ac etaminophen ([place]) 10-325 MG tablet TAKE 1 TABLET EVERY [...] or (1 - 1-dose 75+ series) 02/04/2023 [id number] Vaccine (5 - 2023- season) 2024 04/06/2022, [...] complete this topic Insurance MEDICARE Care Teams Sewer Inspector Relationship Specialty Start Date End Date Elodia Quijano APRN [address] [place] [address] PCP - General 09/29/20
--- OUTSIDE RECORDS SUMMARY | 2025-01-06 15:02 | XMS_ITS | Clinical Summary ---
Author Organization [facility] Address [address] [place] [address] Care Team Providers Care Telecasting Technician Name Role Phone Federico Gomes MD Primary Care Provider [phone] Allergies Active Allergy Reactions Criticality Noted Date Comments Nitrofurantoin Monohyd Macro 016 Tape 02/29/2016 Medications alendronate (FOSAMAX) 40 MG tablet Take 40 mg by mouth Daily. 01/15/2014 Active ALPRAZolam (XANAX) 1 MG tablet Take 1 mg by mouth Daily. 09/14/2012 Active spironolactone (ALDACTONE) 25 MG tablet Take by mouth. 06/30/2015 Active Speculator-3 Fatty Acids (EQL FISH OIL) 1000 MG [...] 20 mg by mouth Daily. 10/27/2017 Active HYDROcodone-zues taminophen (NORCO) 10-325 MG per tablet Take [...] 2024 INFLUENZA VACCINE 02/16/2025 Insurance [place] [id number] [facility] A & B Care Teams Telecasting Technician Relationship Specialty Start Date End Date Federico Gomes MD [address] [facility] [address] [place] [address] PCP - General 08/10/15
--- OUTSIDE RECORDS SUMMARY | 2025-01-06 15:02 | XMS_ITS | Encounter Summary ---
Author Organization [employer] ([place], [place], [place], [place]) Address [address] [place] [address] Care Team Providers Care Cook Cashier Food Prep Name Role Phone Unavailable Primary Care Provider Unavailabl e Encounter Details Date Type Department Care Team (Late st Contact Info) Description 12/21/2021 Transcribed Document [facility] [place] Family Medicine [address] [place] [address] ProviderBird MD [address] [place], [place] [id number] Social History Tobacco Use Types Packs/Day Years [...]
--- OUTSIDE RECORDS SUMMARY | 2025-01-06 15:02 | XMS_ITS | Encounter Summary ---
Author Organization Healthcare Address [address] [place] [address] Care Team Providers Care Test Lead Name Role Phone Elodia Quijano APRN Primary Care Provider [phone]- [phone] Encounter Details Date Type Department Care Team (Late st Contact Info) Description 01/29/2022 Community [facility] Community Practice [address] [place] [address] Elodia Quijano APRN [address] [address] Chronic infection of bone (CMS/HCC) [...] Primary documented in this encounter Care Teams Test Lead Relationship Specialty Start Date End Date Elodia Quijano APRN [address] [address] PCP - General 09/29/20 documented as of this encounter
--- OUTSIDE RECORDS SUMMARY | 2025-01-06 15:02 | XMS_ITS | Referral Summary ---
Author Organization [employer] ([place], [place], [place], [place]) Address [address] [place] [address] Care Team Providers Care Grinder Mill Operator Name Role Phone Unavailable Primary Care [...]
--- OUTSIDE RECORDS SUMMARY | 2025-01-06 15:02 | XMS_ITS | Encounter Summary ---
Author Organization [employer] ([place], [place], [place], [place]) Address [address] [place] [address] Care Team Providers Care Superannuation Funds Manager Name Role Phone Unavailable Primary Care Provider Unavailabl e Encounter Details Date Type Department Care Team (Late st Contact Info) Description 12/21/2021 Transcribed Document [facility] [place] [address] [place] [address] ProviderBird MD [address] [place] [id number] Social History Tobacco Use Types Packs/Day Years [...] device: 20 mcg, SubCutaneous, Daily, 1 Kit Tw[place] 10 mg-325 mg oral tablet: 1 Tab, [...] 06/28/2013 Status: Retired Previous employment/school: Retired from [employer] Highest education: Some college Hazardous equipment operation: [...] EDT Height Source Measured Height Entry Format [place] Height/Length, KENYAN (ft) 5 ft Height/Length KENYAN 8 Inch CLINICALHEIGHT 172.72 cm [place] Body Weight 63.45 kg Weight Source, ED Standing scale Weight Entry Format [place] Weight Armenian lb 271 lb CLINICALWEIGHT 123.18 kg Body Surface Area (BSA) 2.33 m2 Body Mass Index 41.3 kg/m2 >HHI . Oxygen Saturation 12/21/2021 14:23 EDT Oxygen Saturation 94 % . General: Alert, no acute distress. [place] coma scale: Total score: Total score: 15. [...] Radiology results: Radiology Results (Last 48 hours) [id number] -- 12/21/2021 14:04 CT Abdomen Pelvis WO [...] prescription. Electronically signed by Jeane Dejesus Conversion Environmental Compliance Officer Cerner at 09/01/2022 7:47 PM CDT documented in this encounter Plan of Treatment Not on file documented as of this encounter Visit Diagnoses Not on filedocumented in this encounter
--- OUTSIDE RECORDS SUMMARY | 2025-01-06 15:02 | XMS_ITS | Encounter Summary ---
Author Organization [employer] ([place], [place], [place], [place]) Address [address] [place] [address] Care Team Providers Care Hr Associate Name Role Phone Unavailable Primary Care Provider Unavailabl e Encounter Details Date Type Department Care Team (Late st Contact Info) Description 12/21/2021 Transcribed Document [facility] [place] [address] [place] [address] ProviderBird MD [address] [place] [address] Social History Tobacco Use Types [...] Communication Barrier : None Primary Language : Danish Any Spiritual/Cultural Needs or Requests : No [...] RN) Employment/School: Retired, Previous employment/school: Retired from [employer]. Highest education level: Some college. Operates hazardous [...]
--- NOTE | 2025-01-06 15:04 | XR_ITS ---
FINAL REPORT CLINICAL HISTORY: ACUTE MIDLINE THORACIC PAIN;HISTORY OF LUMBAR FUSION, fall on 12/07/24 COMPARISON: None FINDINGS: THORACIC SPINE Three views of the thoracic spine were obtained. There is no fracture present. There is no malalignment. The vertebrae are normal in height. There is moderate anterior osteophyte formation throughout the mid and lower thoracic spine. There is thoracic scoliosis convex to the right measuring 20 degrees centered in the upper thoracic spine. Kyphoplasty changes are noted at T12 and L1. IMPRESSION: Degenerative changes without acute process. Reviewed, Interpreted and Dictated by Raul Hernandez MD Transcribed by Octavia Ward Authenticated and [facility]
--- NOTE | 2025-01-06 15:04 | XR_ITS ---
FINAL REPORT CLINICAL HISTORY: back pain from fall on 12/07/24 COMPARISON: 10/19/2018 FINDINGS: LUMBOSACRAL SPINE SERIES Five views of the lumbosacral spine were obtained. There is long segment fusion of L2-S1. There is posterior laminectomy noted at L5. Kyphoplasty is noted at T12, L1, and L2. There is no acute fracture present. There is no malalignment. The vertebrae are normal in height. There are no significant degenerative changes. IMPRESSION: Postsurgical changes without acute process. Reviewed, Interpreted and Dictated by Raul Hernandez MD Transcribed by Octavia Ward Authenticated and . [facility]
== END 2025-01-06 23:59 | disposition home or self-care (01) ==
LOC: RAD 14:59
PROVIDERS: PCP Nurse Practitioner Family; Visit Provider Nurse Practitioner Family
DX: M47.814 Spondylosis without myelopathy or radiculopathy, thoracic region (principal); G89.11 Acute pain due to trauma; Z98.890 Other specified postprocedural states; Z98.1 Arthrodesis status
CPT/HCPCS: 72072; 72110

== ENCOUNTER 2025-01-18 13:41 | Outpatient (CLI) | payer MEDICARE, SELFPAY ==
--- OUTSIDE RECORDS SUMMARY | 2016-10-01 13:37 | XMS_ITS | Encounter Summary ---
[facility] Address [address] [place] [address] Care Team Providers Care Residential Carpenter Name Role Phone Federico Gomes MD Primary Care Provider [phone] Encounter Details Date Type Department Care Team (Late st Contact Info) Description 10/01/2016 1:37 PM EDT Hospital Encounter [facility] PULMONARY [facility] CRITICAL CARE MEDICINE [address] [place] [phone] Social History Tobacco Use Types Packs/Day Years Used Date Smoking Tobacco: Never Alcohol Use Standard Drinks/Week Comments No 0 (1 standard drink = 0.6 oz pur e alcohol) Abuse Screen Answer Date Recorded Unsafe at Home or Work/School Not on file Feels Threatened by Someone? Not on file 01/2023 Does Anyone Keep You from Co ntacting Others or Doint Things Outside the Home? Not on file 02/24/2023 Physical Sign of Abuse Present Not on file 1 Housing Stability Answer Date Recorded Current Living Arrangements Not on file 01/2023 Potentially Unsafe Housing Conditions Not on kati e 02/24/2023 Family and Community Support Answer Ezra e Recorded Help with Day-to-Day Activities Not on file 02/24/2023 Lonely or Isolated Not on file 02/24/2023 Employment Answer Date Recorded Do you want help finding or keeping work or a bobby b? Not on file 02/24/2023 Disabilities Answer Date Recorded Concentrating, Remembering, or Making Decisions Difficulty Not on file 02/24/2023 Doing Errands Independently Difficulty Not on fi le 02/24/2023 Education Answer Date Recorded Help with school or training? Not on file Preferred Language Not on file 02/24/2023 Comments Unknown Sex and Gender Information Value Date Recorded Sex Assigned at Not on file Legal Sex Female 10:26 AM EDT Gender Identity Not on file Sexual Orientation Not on file documented as of this encounter Plan of Treatment Not on file documented as of this encounter Procedures Procedure Name Priority Date/Time Associated Diagnosis Comments XR CHEST PA AND LATERAL Routine 10/01/2016 2:00 PM EDT Interstitial Lung Disease documented in this encounter Results * XR Chest PA & Lateral (10/01/2016 2:00 PM EDT) Geovani Brar MD IMG DIAGNOSTIC IMAGING ORDERABLES Final Result documented in this encounter Visit Diagnoses Not on filedocumented in this encounter Care Teams Residential Carpenter Relationship Specialty Start Date End Date Federico Gomes MD [address] [place] [facility] [address] [place] [address] PCP - General 08/10/15 documented as of this encounter
--- NOTE | 2025-01-18 13:44 | MM_ITS ---
PROCEDURE INFORMATION: Exam: MG Bilateral Screening 3D Mammography Exam date and time: 01/18/2025 1:56 PM Age: 74 years old Clinical indication: Screening mammogram TECHNIQUE: Imaging protocol: Bilateral Screening tomosynthesis and 2D mammography including computer-aided detection (CAD) when performed. COMPARISON: 1. MG MM DIG SCREENING MAMM BI W/CAD 01/26/2019 9:35 AM 2. MG SCBI MM Dig screening mamm BI w/CAD 11/27/2017 4:42 PM 3. MG DMSB DIG MAMM-SCREEN [place] W/CAD 06/26/2016 3:52 PM 4. MG DMSB DIG MAMM-SCREEN [place] 05/08/2015 11:03 AM FINDINGS: MAMMOGRAPHY: Breast composition: There are scattered areas of fibroglandular density. Mass: None. Architectural distortion: No new or suspicious architectural distortion. Calcifications: No new or suspicious calcifications are present Asymmetric density: No new or suspicious asymmetric density is present Skin thickening: None. Axillary adenopathy: None. IMPRESSION: No mammographic evidence of malignancy. Recommend annual screening mammography unless otherwise clinically indicated. ASSESSMENT: BI-RADS category 1: Negative.
--- OUTSIDE RECORDS SUMMARY | 2025-01-18 13:45 | XMS_ITS | Clinical Summary ---
Author Organization [facility] Address [address] [place] [id number] Phone Care Team Providers Care Museum Host/Hostess Name Role Phone Luis Dotson MD [phone] [ ] Conditions or Problems Problem Name Problem Code Onset Date Status Entry Date Provider Comment Standard Description Annotate Cellulitis, lumbar 88740144 (SNOMED CT) 08/02 Active 08/02 Tanna Anderson Cellulitis of back, except buttock long term care pharmacist (current) use of suppressive antibiotics Z79.2 (ICD-10-CM ) 12/31 Active 12/31 Tanna Anderson USP (current) use of antibiotics Infection following a [...] the cause of diseases classified elsewhere Diarrhea 26600212 (SNOMED CT) 08/02 Inactive 08/02 Tanna Anderson Diarrhea Candidiasis of skin/Under Breasts B37.2 (ICD-10-CM ) 08/02 Inactive 08/02 Tanna Anderson Candidiasis of skin and nail Thrush 02800656 (SNOMED CT) 08/25 Inactive 08/25 Tanna Anderson Candidiasis 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 (ICD-10-CM ) 12/31 Active 12/31 Tanna Anderson Personal history of other infectious and parasitic diseases Hx of MRSA infection 000681811 (SNOMED CT) 12/31 Active 12/31 Tanna Anderson H/O: infectious disease MRSA 083000476 (SNOMED CT) 08/02 Inactive 08/02 Tanna Anderson Methicillin resistant Staphylococcus aureus infection Abscess, lumbar L02.212 (ICD-10-CM ) 06/28 Active 06/28 Diana Sher Cutaneous abscess of back [any part, except buttock and flank] Cellulitis, LUMBAR 25326529 (SNOMED CT) 08/02 Inactive 08/02 Diana Sher Cellulitis of back, except buttock Thrush 94627748 (SNOMED CT) 08/25 Removed 08/25 Arline Orlando Candidiasis LUMBAR WOUND INFECTION 682.2 (ICD-9-CM) 08/02 Inactive 08/02 Lacie W Cellulitis and abscess of trunk MRSA 811400609 (SNOMED CT) 08/02 Removed 08/02 Lacie W Methicillin resistant Staphylococcus aureus infection MORGANELLA B96.89 (ICD-10-CM ) 08/02 Removed 08/02 Lacie W Other specified bacterial agents as the cause of diseases classified elsewhere Morbid obesity 631888375 (SNOMED CT) 08/02 Inactive 08/02 Lacie W Morbid obesity Candidiasis of skin/Under Breasts B37.2 (ICD-10-CM ) 08/02 Removed 08/02 Lacie W Candidiasis of skin and nail Diarrhea 02492396 (SNOMED CT) 08/02 Removed 08/02 Lacie W Diarrhea Medications Medication Instructions Start Date Stop Date Generic Name NDC Provider BACTRIM DS 800-160 MG TABS take 1 tab po BID SULFAMETHOXAZOLE- TRIMETHOPRIM [id number] Luis Dotson MD FORTAZ (IV) 12/25 FORTAZ (IV) Luis Dotson MD URSODIOL 500 MG TABS take 2000 mg po daily URSODIOL 89411059221 Luis Dotson MD BISOPROLOL FUMARATE 10 MG TABS 12/25 BISOPROLOL FUMARATE 66530139574 Luis Dotson MD HYDROCODONE-ACETAM INOPHEN 10-325 MG TABS take 1 tab po Q4H HYDROCODONE-ACETA MINOPHEN 34272490035 Luis Dotson MD ALPRAZOLAM 0.25 MG TABS take 1 tab po daily ALPRAZOLAM 83927905543 Luis Dotson MD GABAPENTIN 300 MG CAPS 12/25 GABAPENTIN 03198260424 Luis Dotson MD FLORASTOR CAPS 12/25 SACCHAROMYCES BOULARDII CAPS 24831256007 Luis Dotson MD PREDNISONE 1 MG TABS take 4mg po daily PREDNISONE 67579245093 Luis Dotson MD METHOTREXATE SODIUM (PF) 200 MG/8ML INJECTION SOLUTION 12/25 METHOTREXATE SODIUM 19931229170 Luis Dotson MD LEVOTHYROXINE SODIUM TABS take one 100 mg tablet by mouth daily LEVOTHYROXINE SODIUM TABS 66053300889 Heather S CYCLOBENZAPRINE HCL 10 MG TABS 06/26 CYCLOBENZAPRINE HCL 97557267133 Heather S LASIX TABS 60 mg by mouth daily FUROSEMIDE TABS 45533518425 Heather S FORTAZ (IV) 12/25 FORTAZ (IV) Luis Dotson MD LYRICA 150 MG CAPS bid PREGABALIN 80588309201 Luis Dotson MD ZEBETA 10 MG ORAL TABLET BISOPROLOL FUMARATE 29210238902 Luis Dotson MD PREDNISONE 1 MG TABS three tabs once a day 12/25 PREDNISONE 69890819852 Luis Dotson MD POTASSIUM CHLORIDE 20 MEQ PACK 12/07 POTASSIUM CHLORIDE 00015925663 Luis Dotson MD FORTEO SOLUTION 12/07 TERIPARATIDE (RECOMBINANT) SOLN 03985859091 Luis Dotson MD LOVENOX SOLUTION 12/07 ENOXAPARIN SODIUM SOLN 91704012459 Luis Dotson MD XARELTO 15 MG TABS 12/07 RIVAROXABAN 13420423046 Luis Dotson MD LEVOTHYROXINE SODIUM TABS 08/17 LEVOTHYROXINE SODIUM TABS 56364730894 Luis Dotson MD ESCITALOPRAM OXALATE TABS ESCITALOPRAM OXALATE TABS 56220094786 Luis Dotson MD BACTRIM DS 800-160 MG TABS Take one pill twice daily. 08/17 SULFAMETHOXAZOLE- TRIMETHOPRIM 30301985718 Luis Dotson MD XARELTO 10 MG TABS RIVAROXABAN 69764375866 Luis Dotson MD METHOTREXATE SODIUM (PF) 200 MG/8ML INJECTION SOLUTION 02/13 METHOTREXATE SODIUM 15045224212 Luis Dotson MD PREDNISONE TABS PREDNISONE TABS 57770952427 Luis Dotson MD BACTRIM DS 800-160 MG TABS 1 by mouth twice a day 01/07 SULFAMETHOXAZOLE- TRIMETHOPRIM 02836862955 Luis Dotson MD PREDNISONE (WILLIAMS) 10 MG TABS 12/07 PREDNISONE 47117548442 Luis Dotson MD XARELTO 10 MG TABS RIVAROXABAN 02526036999 Luis Dotson MD BACTRIM DS 800-160 MG TABS 1 by mouth twice a day 11/05 SULFAMETHOXAZOLE- TRIMETHOPRIM 46492327473 Luis Dotson MD LOVENOX SOLUTION 08/17 ENOXAPARIN SODIUM SOLN 71946101336 Hali Walker FORTEO SOLUTION 06/24 TERIPARATIDE (RECOMBINANT) SOLN 35772152423 Hali Walker EQL POTASSIUM GLUCONATE 595 (99 K) MG ORAL TABLET POTASSIUM GLUCONATE 30138724193 Hali Walker FLORASTOR CAPS 12/25 SACCHAROMYCES BOULARDII CAPS 52039522904 Hali Walker CYCLOBENZAPRINE HCL 10 MG TABS 06/26 CYCLOBENZAPRINE HCL 27413119111 Hali Walker OYST-DINESH D TABLET 08/25 CALCIUM CARBONATE-VITAMIN D TABS 98899800696 Hali Walker ALLERGY RELIEF 180 MG TABS 08/25 FEXOFENADINE HCL 72054025879 Hali Walker NUCYNTA 50 MG TABS 08/25 TAPENTADOL HCL 92167060898 Hali Walker TRAZODONE HCL 100 MG TABS 08/25 TRAZODONE HCL 50286081368 Hali Walker FORTAZ (IV) 08/25 FORTAZ (IV) Hali Walker BACTRIM DS 800-160 MG TABS 1 by mouth twice a day 09/08 SULFAMETHOXAZOLE- TRIMETHOPRIM 11351872384 Hali Walker BACTRIM DS 800-160 MG TABS 1 tab by mouth twice daily x 6 weeks 10/06 SULFAMETHOXAZOLE- TRIMETHOPRIM 33502760865 Luis Dotson MD NYSTATIN 389015 UNIT/ML SUSP 1 teaspoon by mouth four times daily; swish and swallow for oral thrush 09/08 NYSTATIN 59186068917 Luis Dotson MD BACTRIM DS 800-160 MG TABS 1 by mouth twice a day 09/08 SULFAMETHOXAZOLE- TRIMETHOPRIM 65298856280 Luis Dotson MD FORTAZ (IV) 08/25 FORTAZ (IV) Arline Orlando TRAZODONE HCL 100 MG TABS 08/25 TRAZODONE HCL 75108762017 Samy Hyde AMITRIPTYLINE HCL 25 MG TABS AMITRIPTYLINE HCL 47604836885 Samy Hyde D 1000 1000 UNIT ORAL TABLET CHOLECALCIFEROL 74261820718 Samy Hyde NUCYNTA 50 MG TABS 08/17 TAPENTADOL HCL 29830568898 Samy Hyde NADIRA ALLERGY 60 MG TABS FEXOFENADINE HCL 06031218242 Samy Hyde POTASSIUM CHLORIDE 20 MEQ PACK 08/17 POTASSIUM CHLORIDE 88230228912 Samy Hyde URSODIOL 300 MG CAPS 0 10/29 URSODIOL 95120296945 Samy Hyde GABAPENTIN 300 MG CAPS 0 11/16 GABAPENTIN 43200582741 Samy Hyde XALATAN 0.005 % SOLN LATANOPROST 88252096845 Samy Hyde VENTOLIN HFA AERS ALBUTEROL SULFATE AERS 99540940464 Samy Hyde FISH OIL 500 MG CAPS OMEGA-3 FATTY ACIDS 25959339197 Samy Hyde MULTIVITAMINS ORAL CAPSULE MULTIPLE VITAMIN 60058691920 Samy Hyde ALPRAZOLAM 0.5 MG TABS 08/17 ALPRAZOLAM 85832323892 Samy Hyde HYDROCODONE-ACETAM INOPHEN 5-325 MG TABS 12/25 HYDROCODONE-ACETA MINOPHEN 60846946477 Samy Hyde VALIUM 5 MG TABS 08/12 DIAZEPAM 98986232062 Samy Hyde ALAVERT 10 MG ORAL TABLET 08/12 LORATADINE 57879920244 Samy Hyde MICONAZOLE 7 2 % CREA 08/12 MICONAZOLE NITRATE 40370365686 Samy Hyde FORTEO 600 MCG/2.4ML SUBCUTANEOUS SOLUTION 08/12 TERIPARATIDE (RECOMBINANT) 84835179394 Samy Hyde PERCOCET 10-325 MG TABS 08/12 OXYCODONE-ACETAMI NOPHEN 21492736995 Samy Hyde VITAMIN D3 50 MCG (1999) TABS 08/12 CHOLECALCIFEROL 03161014865 Samy Hyde SENNA TABS 08/12 SENNA TABS 55177343394 Samy Hyde REMERON 15 MG TABS 08/12 MIRTAZAPINE 76455736046 Samy Hyde BACTRIM DS 800-160 MG TABS 1 by mouth twice a day 08/25 SULFAMETHOXAZOLE- TRIMETHOPRIM 56934931158 Luis Dotson MD XARELTO 15 MG TABS 12/07 RIVAROXABAN 28981757183 Angélica Bryant BACLOFEN 10 MG TABS take 5 mg three times a day BACLOFEN 53059883725 Angélica Bryant BACTRIM DS 800-160 MG TABS 1 by mouth twice a day 08/18 SULFAMETHOXAZOLE- TRIMETHOPRIM 95831651612 Angélica Bryant BACTRIM DS 800-160 MG TABS 1 by mouth twice a day 08/18 SULFAMETHOXAZOLE- TRIMETHOPRIM 23070124516 Luis Dotson MD ROCEPHIN SOLR 2gm IV q [address] [facility] 08/04 CEFTRIAXONE SODIUM SOLR 36588240761 [facility] VANCOMYCIN HCL SOLR 1250mg IV q [address] [facility] 08/04 VANCOMYCIN HCL SOLR 55785629498 [facility] ROCEPHIN SOLR 2gm IV q [address] [facility] 08/04 CEFTRIAXONE SODIUM SOLR 93493786335 [facility] VANCOMYCIN HCL SOLR 1250mg IV q [address] [facility] 05/19 VANCOMYCIN HCL SOLR 34664099266 [facility] BISOPROLOL FUMARATE 10 MG TABS 12/25 BISOPROLOL FUMARATE 15078146005 Dominick Sarmiento LASIX TABS 06/26 FUROSEMIDE TABS 47959617711 Dominick Sarmiento ALLERGY RELIEF 180 MG TABS 11/16 FEXOFENADINE HCL 56491025772 Dominick Sarmiento PRILOSEC 20 MG ORAL CAPSULE DELAYED RELEASE OMEPRAZOLE 14073803371 Dominick Sarmiento REMERON 15 MG TABS 07/15 MIRTAZAPINE 31554599053 Dominick Sarmiento SENNA TABS 08/12 SENNA TABS 19624762304 Dominick Sarmiento VITAMIN D3 50 MCG (1999 [place]) TABS 08/12 CHOLECALCIFEROL 42982920908 Dominick Sarmiento OYST-DINESH D TABLET 08/25 CALCIUM CARBONATE-VITAMIN D TABS 14554446214 Dominick Sarmiento PERCOCET 10-325 MG TABS 08/17 OXYCODONE-ACETAMI NOPHEN 92690504433 Dominick Sarmiento FORTEO 600 MCG/2.4ML SUBCUTANEOUS SOLUTION 06/24 TERIPARATIDE (RECOMBINANT) 38905137753 Dominick Sarmiento PREDNISONE TABS PREDNISONE TABS 91959405828 Dominick Sarmiento MICONAZOLE 7 2 % CREA 11/16 MICONAZOLE NITRATE 30240827869 Dominick Sarmiento ALAVERT 10 MG ORAL TABLET 08/12 LORATADINE 12106908930 Dominick Sarmiento VALIUM 5 MG TABS 07/15 DIAZEPAM 37108748148 Dominick Sarmiento Medications Administered No information available. Allergies, Adverse [...] for B ACTRIM DS 800-160 TAB ESM_RR [id number]`MADY TRIM DS 800-160 TAB`800-160``60 Tablet`30`TAKE ONE TABLET BY MOUTH TWICE DAILY``1`0`05/19`01/04/20 16`[facility] 591*`[id number] `[id number]``S MZ/TMP DS 800-160 TAB Quantity: 60 Tablet Instructions: TAKE ONE TABLET BY MOUTH TWICE DAILY B e-[employer] alfredo vanessa refill request Lab Report: C-REACTIVE [...] smoking status SMOK STATUS Never smoker Toba patient accounts manager smoking status Lab Report: SEDIMENTATION RA TE [...] Name Date Entry Date CPT-sl STAT Labs CPT-80998 CMP [id number] CBC with Differential 2016 CPT-60226 Sedimentation Rate (ESR) 201 11/23/08 CPT-01773 C- reactive protein CPT-32948 Hep C AB CPT-33625 C- reactive protein CPT-79742 Sedimentation Rate (ESR) 201 10/25/07 CPT-04562 CMP 56964 Hepatitis C Atb: (ICD 10 Code: Z11.59) 20 01/01/05 CPT-sl STAT Labs CPT-62591 Sedimentation Rate (ESR) 201 10/19/07 CPT-37396 C- reactive protein CPT-32978 CMP CPT-19336 CMP CPT-45572 C- reactive protein CPT-97804 CMP CPT-97305 C- reactive protein CPT-18697 Sedimentation Rate (ESR) 201 09/16/20 CPT-64914 BMP CPT-Cooral Continue oral antibiotics 20 29/09/20 CPT-54395 BMP CPT-[place]oor[place] Continue oral antibiotics 20 30/08/08 CPT-elgin New Oral Antibiotic CPT-Cooral Continue oral antibiotics 20 30/07/25 CPT-WC Redress Wound CPT-DC Discontinue IV antibiotics 2 CPT-elgin New Oral Antibiotic CPT-PICREM PICC Removal CPT-09602 BMP Vital Signs Date Name Value Unit [...]
--- OUTSIDE RECORDS SUMMARY | 2025-01-18 13:46 | XMS_ITS | Encounter Summary ---
Author Organization Healthcare Address [address] [place] [id number] Care Team Providers Care Entry Level Web Developer Name Role Phone Elodia Quijano APRN Primary Care Provider [phone] Reason for Referral * Consultation (Routine) - Closed Specialty Diagnoses / Procedures Referred By Francisco J t Referred To Contact Nephrology Diagnoses Osteoporosis without current pathological fracture, unspecified osteoporosis type Elodia Quijano, SAND POLISHER [address] [address] Phone: tel: fax: [facility] [address] [place] [phone] Phone: tel: fax: Referral ID Status Reason Start Date Expiration Date V isits Requested Visits Authorized [id number] Closed Specialty Services Required 03/09/2024 09/08/2025 1 1 Encounter Details Date Type Department Care Team (Latest Contact Info) Description 03/09/2024 Community [facility] [address] [place] [address] Elodia Quijano, SAND POLISHER [address] [address] Osteoporosis without current pathological fracture, unspecified osteoporosis [...] Primary documented in this encounter Care Teams Entry Level Web Developer Relationship Specialty Start Date End Date Elodia Quijano APRN [address] [place] [address] PCP - General 09/29/20 documented as of this encounter
--- OUTSIDE RECORDS SUMMARY | 2025-01-18 13:46 | XMS_ITS | Clinical Summary ---
Author Organization [facility] Address [address] [place] [address] Care Team Providers Care Shoemaking Cutter Name Role Phone Federico Gomes MD Primary Care Provider [phone] Allergies Active Allergy Reactions Criticality Noted Date Comments Nitrofurantoin Monohyd Macro 016 Tape 02/29/2016 Medications alendronate (FOSAMAX) 40 MG tablet Take 40 mg by mouth Daily. 01/15/2014 Active ALPRAZolam (XANAX) 1 MG tablet Take 1 mg by mouth Daily. 09/14/2012 Active spironolactone (ALDACTONE) 25 MG tablet Take by mouth. 06/30/2015 Active Dagmar-3 Fatty Acids (EQL FISH OIL) 1000 MG [...] 2024 INFLUENZA VACCINE 02/16/2025 Insurance [place] [id number] [facility] A & B Care Teams Shoemaking Cutter Relationship Specialty Start Date End Date Federico Gomes MD [address] [facility] [address] [place] [address] PCP - General 08/10/15
--- OUTSIDE RECORDS SUMMARY | 2025-01-18 13:46 | XMS_ITS | Encounter Summary ---
Author Organization Healthcare Address [address] [place] [address] Care Team Providers Care Bending Shed Worker Name Role Phone Elodia Quijano APRN Primary Care Provider [phone] Encounter Details Date Type Department Care Team (Late st Contact Info) Description 01/29/2022 Community [facility] [address] [place] [address] Elodia Quijano APRN [address] [address] Chronic infection of bone (CMS/HCC) [...] Primary documented in this encounter Care Teams Bending Shed Worker Relationship Specialty Start Date End Date Elodia Quijano APRN [address] [address] PCP - General 09/29/20 documented as of this encounter
--- OUTSIDE RECORDS SUMMARY | 2025-01-18 13:46 | XMS_ITS | Clinical Summary ---
Author Organization [employer] ([place], [place], [place], [place]) Address [address] [place] [address] Care Team Providers Care Glove Former Name Role Phone Unavailable Primary Care Provider [...]
--- OUTSIDE RECORDS SUMMARY | 2025-01-18 13:46 | XMS_ITS | Clinical Summary ---
Author Organization Healthcare Address [address] [place] [address] Care Team Providers Care Child Study Team Director Name Role Phone Elodia Quijano [place] Primary Care Provider [phone]- [phone] Allergies Active Allergy Reactions Criticality Noted Date Comments Nitrofurantoin Itching Medium 05/20/2014 Wound Dressing Adhesive Unknown - Patien t states they do not know rxn details Low 05/20/2014 Medications Fexofenadine HCl (NADIRA ALLERGY PO) 1 (one) time each day. 5 Active Multiple Vitamins-Florence als (CENTRUM SILVER PO) 1 (one) time [...] MCG/ACT diskus inhaler 9 Active HYDROcodone-ac etaminophen (Taswell) 10-325 MG tablet TAKE 1 TABLET EVERY [...] Screening 1950 [facility]-Medicare Annual Wellness (AWV) 1950 [facility]-/Child/Adol SDOH Screenings 1950 [facility]- SDOH Screenings 02/04/1966 [facility]-Adult SDOH Screenings 02/04/1966 [facility]-Zoster Vaccines (1 of 2) 02/04/1967 [facility]-RSV Vaccine: 60+ Years or (1 - 1-dose 75+ series) 02/04/2023 [id number]-67 Vaccine (5 - 2023- season) 2024 04/06/2022, [...] complete this topic Insurance MEDICARE Care Teams Child Study Team Director Relationship Specialty Start Date End Date Elodia Quijano APRN [address] [place] [address] PCP - General 09/29/20
--- OUTSIDE RECORDS SUMMARY | 2025-01-18 13:46 | XMS_ITS | Referral Summary ---
Author Organization [employer] ([place], [place], [place], [place]) Address [address] [place] [address] Care Team Providers Care Urgent Care Nurse Practitioner Name Role Phone Unavailable Primary Care Provider [...]
== END 2025-01-18 23:59 | disposition home or self-care (01) ==
LOC: RAD 13:41
PROVIDERS: PCP Nurse Practitioner Family; Visit Provider Nurse Practitioner Family
DX: Z12.31 Encounter for screening mammogram for malignant neoplasm of breast (principal); R92.323 Mammographic fibroglandular density, bilateral breasts
CPT/HCPCS: 77063; 77067